=== PATIENT | female | born 1970 | race African-American/Black ===

== ENCOUNTER 2023-03-28 07:51 | Outpatient (REF) | payer OTHER, SELFPAY | END 2023-03-28 07:52 | disposition home or self-care (01) | LOC: HO.HOSX 07:51 | PROVIDERS: Visit Provider Physician Assistant | DX: Z13.89 Encounter for screening for other disorder (principal) ==

== ENCOUNTER 2023-07-07 05:49 | Emergency (ER) | payer OTHER, SELFPAY ==
--- NOTE | ~2023-07-07 | XR_ITS ---
EXAMINATION: XR CHEST CLINICAL INFORMATION: Chest pain COMPARISON: October 2008. TECHNIQUE: 2 views of the chest were obtained. FINDINGS: No evidence for airspace consolidation or vascular congestion. The hilar regions are unremarkable. There is some elevation of left diaphragm. Pleural surfaces appear to be clear. XR/XR chest 2V IMPRESSION: No evidence for acute process.
--- NOTE | ~2023-07-07 | XR_ITS ---
EXAMINATION: XR TIBIA AND FIBULA, LEFT CLINICAL INFORMATION: Left leg pain. COMPARISON: None available. TECHNIQUE: AP and lateral views of the left tibia and fibula were obtained. FINDINGS: The bones and soft tissues are normal. No fracture. No osseous lesions. XR/XR tibia fibula LT 2V IMPRESSION: Unremarkable left tibia and fibula.
--- NOTE | ~2023-07-07 | US_ITS ---
EXAMINATION: US VENOUS ULTRASOUND WITH DOPPLER LOWER EXTREMITY, LEFT CLINICAL INFORMATION: Left leg pain COMPARISON: None available. TECHNIQUE: Ultrasound of the deep veins is performed from the hip to the calf with compression sonography and color and pulse Doppler assessment. Spectral analysis with color-flow imaging is performed. FINDINGS: There is normal venous compression and respiratory variation and augmented flow. The visualized common femoral vein, superficial femoral vein, profunda femoral vein, popliteal vein, and the trifurcation region shows no evidence of deep venous thrombosis. There is no significant popliteal fossa cyst. No appreciable popliteal fossa abnormality. If the patient's symptoms persist, followup ultrasound in 5 days 7 days might be of value to exclude proximal propagation from a non-visualized calf vein. US/US venous duplex LE LT IMPRESSION: No DVT demonstrated in the left lower extremity.
--- NOTE | ~2023-07-07 | XR_ITS ---
EXAMINATION: XR KNEE, LEFT CLINICAL INFORMATION: Left knee pain COMPARISON: None available. TECHNIQUE: Four views of the left knee. FINDINGS: No evidence for acute fracture or dislocation. There is slight narrowing in the medial joint space compartment. No osteochondral lesions or erosions. Minimal spurring of the medial tibial plateau. There is no significant joint effusion. XR/XR knee LT 4V IMPRESSION: No acute process. Slight degenerative narrowing in the medial joint space compartment.
--- NOTE | 2023-07-07 05:51 | ECG_ITS ---
Test Reason : CHEST PAIN Blood Pressure : / mmHG Vent. Rate : 077 BPM Atrial Rate : 077 BPM P-R Int : 154 ms QRS Dur : 082 ms QT Int : 372 ms P-R-T Axes : 049 003 090 degrees QTc Int : 420 ms Normal sinus rhythm Nonspecific T wave abnormality Abnormal ECG No previous ECGs available Referred By: Generic ED Physician Electronically Signed By:CLOTILDE MIDDLETON MD
--- OUTSIDE RECORDS SUMMARY | 2023-07-07 06:14 | XMS_ITS | Continuity of Care Document ---
Author Name Unknown Organization [facility] Address [address] [place] [address]- Care Team Providers Care Mixing Machine Tender Cork Rod Name Role Phone Payam Saravia MD Primary Care Physician Encounter [facility] R [id number] Date(s): 05/07/21 - 05/07/[address] [address]- Discharge Disposition: A-D/C Home Attending Physician: Rich Chacon MD Admitting Physician: Rich Chacon MD Referring Physician: Rich Chacon MD Allergies, Adverse Reactions, Alerts Substance Reaction Severity Status Percocet hives C/O: itching Active Immunizations Given and Recorded Vaccine Date Status Refusal Reason pneumococcal 23-valent vaccine 10/06/15 Given Medications acetaminophen-HYDROcodone 325 mg-5 mg oral tablet 1 tablet, By Mouth, Every 4 hours, PRN Pain , Moderate, 0 Refills, Maintenance, 04/17/18 9:03:57 EDT, Tablet Start Date: 04/17/18 Status: Ordered Colace sodium 100 mg oral capsule 1 capsule = 100 mg, By Mouth, 2 times a day, PRN for constipation, # 20 capsule, 0 Refills, Maintenance, 10/06/15 9:25:46, Capsule Start Date: 10/06/15 Status: Ordered Ibuprofen 800 mg, By Mouth, 3 times a day, PRN, to hold, Refills 0, Maintenance, as needed for pain, 04/10/1810:47:18 EDT Start Date: 04/10/18 Status: Ordered Maxzide 50 mg-75 mg oral tablet 1, tablet, By Mouth, Daily, PRN, tAKES FOR LEG SWELLING, SELDOM USES, # 30 tablet, Refills 0, Maintenance, Other, 04/10/18 10:22:03 EDT, Tablet Start Date: 04/10/18 Status: Ordered Ortho-Novum 35 mcg-1 mg oral tablet 1 tablet, By Mouth, Daily, take 3 pills per day for 2 days take 2 pills per day until the bleeding stops then take one pill a day until you can see TEAM MANAGER, # 28 tablet, 0 Refills, Maintenance, 05/18/19 3:44:19 EDT, Tablet Start Date: 05/18/19 Stop Date: 06/15/19 Status: Ordered Pt.'s Own Meds OTC allergy relief, By Mouth, Daily, PRN, Maintenance, 04/10/18 10:46:26 EDT Start Date: 04/10/18 Status: Ordered Problem List Condition Effective Dates Status Health Status Inform ant Asthma(Confirmed) Active IBS (irritable bowel syndrome)(Confirmed) Active Morbid obesity(Confirmed) Active Vital Signs Most recent to oldest [Reference Range]: 1 2 3 Weight 116.5 kg (05/07/21 8:28 AM) Oxygen Saturation [94-100 %] 97 % (05/07/21 10:07 AM) 95 % (05/07/21 9:57 AM) 100 % (05/07/21 8:28 AM) Pulse Rate [55-90 bpm] 71 bpm (05/07/21 8:28 AM) Blood Pressure [90-138/55-84 mm Hg] 137/89mm Hg (05/07/21 10:07 AM) 148/92mm Hg *H* (05/07/21 9:57 AM) 161/87mm Hg *H* (05/07/21 8:28 AM) Respiratory Rate [16-30 br/min] 15 br/min *L* (05/07/21 10:07 AM) 20 br/min (05/07/21 9:57 AM) 20 br/min (05/07/21 8:28 AM) Temperature [96.8-100.4 DegF] 98.8 DegF (05/07/21 8:28 AM) Mode of Delivery (Oxygen) Room air (05/07/21 10:07 AM) Room air (05/07/21 9:57 AM) Room air (05/07/21 8:28 AM) Blood pressure sites Arm, left (05/07/21 10:07 AM) Arm, left (05/07/21 9:57 AM) Arm, left (05/07/21 8:28 AM) Temperature Route Axillary (05/07/21 8:28 AM) Dry Weight 116.5 kg (05/07/21 8:28 AM) Social History Social History Type Response Smoking Status Never (less than 100 in lifetime) entered on: 05/18/19 Sex
--- OUTSIDE RECORDS SUMMARY | 2023-07-07 06:14 | XMS_ITS | Continuity of Care Document ---
Author Name Unknown Organization [facility] ter Address [address] [place] [address]- Care Team Providers Care Firewall Security Engineer Name Role Phone Payam Saravia MD Primary Care Physician Encounter [facility] [place] [place] Date(s): 03/01/21 - 06/22/[address] [address]- Attending Physician: Payam Saravia MD Admitting Physician: Payam Saravia MD Referring Physician: Payam Saravia MD Allergies, Adverse Reactions, Alerts Substance Reaction [...] pill a day until you can see SILK CREPE MACHINE OPERATOR, # 28 tablet, 0 Refills, Maintenance, 05/18/19 3:44:19 EDT, Tablet Start Date: 05/18/19 Stop Date: 06/15/19 Status: Ordered Pt.'s Own Meds OTC allergy relief, By Mouth, Daily, PRN, Maintenance, 04/10/18 10:46:26 EDT Start Date: 04/10/18 Status: Ordered Problem List Condition Effective Dates Status Health Status Inform ant Asthma(Confirmed) Active IBS (irritable bowel syndrome)(Confirmed) Active Morbid obesity(Confirmed) Active Social History Social History Type Response Smoking Status Never (less than 100 in lifetime) entered on: 05/18/19 Sex
[2023-07-07 06:18] VITALS: BP 149/74; PULSE 82; RESP 16; TEMP 36.7; O2SAT 98; BMI 36.8
[2023-07-07 06:23] LABS: Hematocrit 38.4 % (37.0-47.0); Hemoglobin 12.7 g/dl (12.0-16.0); Mean Corpuscular HGB Conc 33.1 g/dl (31.0-35.0); Mean Corpuscular Hemoglobin 28.7 pg (27.0-33.0); Mean Corpuscular Volume 86.9 fL (80.0-98.0); Mean Platelet Volume 12.1 fL (9.4-12.3); Platelet Count 177 X10*3/uL (160-400); Red Blood Count 4.42 X10*6/uL (4.20-5.50); Red Cell Distribution Width 12.5 % (11.0-16.0)
[2023-07-07 06:52] LABS: Troponin-I High Sensitivity < 2.7 ng/L (<3.5-17.0)
[2023-07-07 08:21] VITALS: BP 144/75; PULSE 74; RESP 16; TEMP 36.4; O2SAT 100
--- NOTE | 2023-07-07 08:21 | ED.GENADULT ---
HPI - General Adult General Chief complaint: General Medical Stated complaint: woke up with cp, leg pain Time Seen by Provider: 07/07/23 08:20 Source: patient and RN notes reviewed Mode of arrival: ambulatory Limitations: no limitations History of Present Illness HPI narrative: This is a 53-year-old female, with a past medical history of asthma and IBS, presenting to the emergency department with complaints of chest pain which started at 4:00 a.m. this morning. Patient states that while she was sleeping she was woken up with nonradiating midsternal squeezing chest pain. Denies any shortness breath at that time. She states that the pain a for several seconds and resolved on its own she was unable to return back to sleep due to the symptoms. She states that over the last several days she has had intermittent left knee pain and left calf pain. Denies any recent trauma or injury to leg. Patient reports that over the last several weeks she has had 2 episodes of similar chest pain however these other episodes she would have the pain radiates to right shoulder. She endorses significant amount of life stressors, reports that her mom several weeks ago. She denies any known cardiac problems. She is on a hormonal IUD. She traveled to [place] in march, otherwise denies any other long travels. Denies any recent hospitalizations or surgeries. She reports that her sister has a clotting disorder, unsure what disorder this was but has had blood clots. No other complaints or concerns at this time. MD complaint: Chest pain, leg pain Quality: aching Pain Consistency: constant Relieving factors: none Exacerbating factors: none Associated symptoms: denies other symptoms Treatments prior to arrival: none Related Data Allergies Allergy/AdvReac Type Severity Reaction Status Date / Time acetaminophen [Percocet] Allergy Unknown Verified 01/24/15 00:00 oxycodone [Percocet] Allergy Unknown Verified 01/24/15 00:00 Sulfa (Sulfonamide Allergy Unverified 08/10/20 16:19 Antibiotics) [Sulfa (Sulfonamides)] Review of Systems Review of Systems: Yes all other systems are reviewed and are negative Constitutional: Constitutional: Reports as per [facility] Social History Social History Smoked in Last 30 Days: No Use of substances other than those prescribed or required for medical reasons: No Advance Directives: No Advance Directives Information Provided: No Physical Exam ED Vital Signs: Vital Signs - 24 hr 07/07/23 10:50 Temperature 97.7 F Pulse Rate 63 Respiratory Rate 16 Blood Pressure 128/80 Pulse Oximetry 100 Oxygen Delivery Method Room Air BMI result Body Mass Index 36.8 Const General: cooperative, comfortable and no acute distress Orientation/consciousness: patient oriented x3 Limitations: no limitations HENMT Head: Yes normal to inspection, Yes normocephalic and Yes atraumatic Ears: hearing grossly normal bilaterally General nose exam: Normal external nose present Face and sinus: Yes normal facial exam Mouth: Normal oral and palatal mucosa present, oropharynx normal and moist mucous membranes Throat: Yes posterior oropharynx normal Eyes General: appearance normal, both eyes and all related structures Eyelids: Yes eyelids normal Conjunctivae: conjunctivae normal Sclerae: sclerae normal Pupils: Equal, round and reactive pupils present EOM: EOMs intact bilaterally Neck Neck: Yes normal visual inspection, Yes full ROM and Yes no lymphadenopathy Lymphatic: no lymphadenopathy noted Chest Chest palpation & inspection: normal inspection of the chest and normal palpation of entire chest wall Resp Effort & Inspection: normal respiratory effort and able to speak in complete sentences Auscultation: clear to auscultation bilaterally, no crackles, no rales, no rhonchi and no wheezes Cardio Rate: regular rate Rhythm: regular rhythm Heart sounds: S1 normal heart sound present and S2 normal heart sound present GI Inspection: Yes normal to inspection Skin General skin exam: no rashes or lesions noted Trauma: no lacerations or abrasions Wounds: no wounds Neuro General: patient oriented x3 and moves all extremities Cranial nerves: Yes Equal, round and reactive pupils present Extrem Other: Left lower extremity is well perfused. Patient has mild tenderness to palpation along the posterior calf. No palpable cords. No pitting edema noted. DP pulses 2+. Left knee mildly tender to palpation along the anterior aspect, inferior to the patella. No tenderness palpation to the posterior knee. No obvious bony deformity or edema noted. Tenderness palpation along the anterior left taylor. No step-off or deformity. General: Yes normal to inspection Right upper extremity: normal to inspection Left upper extremity: normal to inspection Right lower extremity: normal to inspection Left lower extremity: normal to inspection Course Reevaluation(s) Reevaluation #1: No leukocytosis, stable H&H, troponin x2 negative. BNP 21, D-dimer less than 150. Ultrasound of left lower extremity without any clots. Knee x-ray revealing mild degenerative changes along the medial joint line. Chest x-ray unremarkable. EKG with no ST elevation or depression. Patient has a heart score of 2. Given workup today, reassuring symptoms unlikely cardiac related. 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 She states that the pain is throbbing and worsens with ambulation. Time: 12:03 Reevaluation #2: Tibia fibula x-ray unremarkable. 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 Advised to rest, and take ibuprofen Tylenol as directed as needed for symptoms. Also given referral to Orthopedics for management of her taylor splints as well as knee. Cardiac workup reassuring today. DDimer is negative. Advised to return if any new or worsening symptoms occur. Also educated to follow up with outpatient Cardiology for further testing given family medical history of cardiac problems. Patient understands and agrees with plan. Patient stable for discharge. Time: 12:48 Medical Decision Making Medical Decision Making [facility] Narrative: 53-year-old female presenting to the emergency department for evaluation of chest pain which started this morning. On arrival, patient mildly hypertensive at 149/74, all other vital signs within normal limits. She endorses left calf pain. No known history of blood clots however reports family history of clotting disorders. She is on a hormonal IUD. Unable to use PERC criteria given patient's age. Differential diagnoses include ACS, PE, calf strain, CHF, ACS. Given timing a plan to ER presentation, planned to have 2 troponins performed to rule NSTEMI. EKG without signs of ischemia. Presentation not consistent with acute PE however will get ultrasounds and D-dimer. Plan: Labs, EKG, chest x-ray, left knee x-ray Differential Diagnosis Differential Diagnoses: The differential diagnosis associated with the presentation includes See above Admission/Observation Consideration of admission/observation: Escalation of care including admission/observation considered Patient would have been admitted to the hospital had her work up had any findings where hospital admission was appropriate and her clinical presentation warranted hospital admission. Lab Data [facility] Lab Attestation statement: I reviewed the patient's lab results. see above 07/07/23 06:14 07/07/23 06:14 Labs: Lab Results 07/07/23 07/07/23 07/07/23 Range/Units 06:14 06:14 06:14 WBC 6.0 (4.8-10.8) X10*3/uL RBC 4.42 (4.20-5.50) X10*6/uL Hgb 12.7 (12.0-16.0) g/dl Hct 38.4 (37.0-47.0) % MCV 86.9 (80.0-98.0) fL MCH 28.7 (27.0-33.0) pg MCHC 33.1 (31.0-35.0) g/dl RDW 12.5 (11.0-16.0) % Plt Count 177 (160-400) X10*3/uL MPV 12.1 (9.4-12.3) fL Absolute Nucleated RBC 0.000 (0.0-0.012) X10*3/uL Nucleated RBC % (auto) 0.0 (0.0-0.2) /100WBC D-Dimer High Sensitivty NG/ML Sodium 138 (135-145) mmol/L Potassium 4.1 (3.3-5.1) mmol/L Chloride 107 (96-108) mmol/L Carbon Dioxide 23 (22-29) mmol/L Anion Gap 10 L (12-20) BUN 8 L (9-16) mg/dL Creatinine 0.87 (0.5-1.4) mg/dL Estim Creat Clear Calc 112.4 Estimated GFR > 60 Random Glucose 95 (60-115) mg/dL Calcium 8.6 (8.4-10.2) mg/dL Total Bilirubin 0.5 (0.0-1.0) mg/dL AST 18 (5-31) U/L ALT 19 (0-31) U/L Alkaline Phosphatase 63 (39-117) U/L Troponin I High Sens < 2.7 (<3.5-17.0) ng/L B-Natriuretic Peptide (<100) pg/mL Total Protein 6.7 (6.5-8.0) g/dL Albumin 3.7 (3.5-5.0) g/dL 07/07/23 07/07/23 07/07/23 Range/Units 10:34 10:34 10:35 WBC (4.8-10.8) X10*3/uL RBC (4.20-5.50) X10*6/uL Hgb (12.0-16.0) g/dl Hct (37.0-47.0) % MCV (80.0-98.0) fL MCH (27.0-33.0) pg MCHC (31.0-35.0) g/dl RDW (11.0-16.0) % Plt Count (160-400) X10*3/uL MPV (9.4-12.3) fL Absolute Nucleated RBC (0.0-0.012) X10*3/uL Nucleated RBC % (auto) (0.0-0.2) /100WBC D-Dimer High Sensitivty < 150 NG/ML Sodium (135-145) mmol/L Potassium (3.3-5.1) mmol/L Chloride (96-108) mmol/L Carbon Dioxide (22-29) mmol/L Anion Gap (12-20) BUN (9-16) mg/dL Creatinine (0.5-1.4) mg/dL Estim Creat Clear Calc Estimated GFR Random Glucose (60-115) mg/dL Calcium (8.4-10.2) mg/dL Total Bilirubin (0.0-1.0) mg/dL AST (5-31) U/L ALT (0-31) U/L Alkaline Phosphatase (39-117) U/L Troponin I High Sens < 2.7 (<3.5-17.0) ng/L B-Natriuretic Peptide 21 (<100) pg/mL Total Protein (6.5-8.0) g/dL Albumin (3.5-5.0) g/dL Radiology Impression Discussion of test interpretation with radiology: I have reviewed the radiologist's reading. Radiologist Impression: EXAMINATION: XR TIBIA AND FIBULA, LEFT CLINICAL INFORMATION: Left leg pain.? COMPARISON: None available.? TECHNIQUE: AP and lateral views of the left tibia and fibula were obtained. FINDINGS: The bones and soft tissues are normal. No fracture. No osseous lesions. ? XR/XR tibia fibula LT 2V IMPRESSION: Unremarkable left tibia and fibula. ? Dictated By: Lazaro Gant MD EXAMINATION:? US VENOUS ULTRASOUND WITH DOPPLER LOWER EXTREMITY, LEFT CLINICAL INFORMATION:? Left leg pain COMPARISON:? None available. TECHNIQUE: Ultrasound of the deep veins is performed from the hip to the calf with compression sonography and color and pulse Doppler assessment. Spectral analysis with color-flow imaging is performed. FINDINGS: There is normal venous compression and respiratory variation and augmented flow. The visualized common femoral vein, superficial femoral vein, profunda femoral vein, popliteal vein, and the trifurcation region shows no evidence of deep venous thrombosis. ? There is no significant popliteal fossa cyst. No appreciable popliteal fossa abnormality. If the patient's symptoms persist, followup ultrasound in 5 days 7 days might be of value to exclude proximal propagation from a non-visualized calf vein. US/US venous duplex LE LT IMPRESSION: No DVT demonstrated in the left lower extremity. Dictated By: Sander Mar EXAMINATION: XR KNEE, LEFT CLINICAL INFORMATION: Left knee pain? COMPARISON: None available.? TECHNIQUE: Four views of the left knee. FINDINGS: No evidence for acute fracture or dislocation. There is slight narrowing in the medial joint space compartment. No osteochondral lesions or erosions. Minimal spurring of the medial tibial plateau. There is no significant joint effusion.? XR/XR knee LT 4V IMPRESSION: No acute process. Slight degenerative narrowing in the medial joint space compartment. ? Dictated By: Sander Mar Scores Heart Score History: -1- moderately suspicious ECG: -0- normal Age: -1- >45 - <65 Risk factory: -0- no risk factors known Troponin: -0- < or = normal limit Score: 2 Risk: 1.7% Discharge Plan Discharge Clinical Impression: Taylor splints, Chest pain, Knee pain, left Patient Disposition: Home, Self-Care Instructions: Chest Pain (ED), Taylor Splints (ED), Knee Pain (ED) Additional Instructions: Your EKG, labs and chest x-ray were reassuring. Your left leg ultrasound did not show any blood clots. Your left knee x-ray shows degenerative changes. Your left leg x-ray does not show any evidence of stress fractures. Please change her shoes, to a supportive like shoe. Please take ibuprofen or Tylenol for relief. Apply ice your taylor and knee for relief. Please follow-up with orthopedics as well as Cardiology for further management and workup. If any new or worsening symptoms occur including but not limited to worsening chest pain, shortness of breath, or any other symptoms, please return for re-evaluation. Referrals: [facility] [place] Cardi[facility] Services [Provider Group] [facility] [place] Orth[facility] Surgeons [Provider Group] Interventions: ED Discharge Assessment Last Done: 07/07/23 13:06 Discharge Date/Time: 07/07/23 13:07
--- NOTE | 2023-07-07 08:27 | PC.NURSE ---
Pt stated she was walking two weeks ago and left knee began to hurt. Pt stated yesterday evening the pain started to radiate from knee area to left ankle.
[2023-07-07 08:29] LABS: Alanine Aminotransferase 19 U/L (0-31); Albumin Level 3.7 g/dL (3.5-5.0); Alkaline Phosphatase 63 U/L (39-117); Aspartate Amino Transferase 18 U/L (5-31); Bilirubin Total 0.5 mg/dL (0.0-1.0); Blood Urea Nitrogen 8 mg/dL (9-16); Calcium 8.6 mg/dL (8.4-10.2); Chloride 107 mmol/L (96-108); Creatinine Clr Calc Pharmacy 112.4; Estimated Glomerular Filt Rate > 60; Glucose Random 95 mg/dL (60-115); Potassium 4.1 mmol/L (3.3-5.1); Sodium 138 mmol/L (135-145); Total Protein 6.7 g/dL (6.5-8.0)
[2023-07-07 10:02] LABS: Anion Gap 10 (12-20); Carbon Dioxide 23 mmol/L (22-29)
[2023-07-07 10:50] VITALS: BP 128/80; PULSE 63; RESP 16; TEMP 36.5; O2SAT 100
[2023-07-07 10:53] LABS: D Dimer High Sensitivity < 150 NG/ML
[2023-07-07 11:04] LABS: B Type Natriuretic Peptide 21 pg/mL (<100)
[2023-07-07 11:26] LABS: Troponin-I High Sensitivity < 2.7 ng/L (<3.5-17.0)
== END 2023-07-07 13:07 | disposition home or self-care (01) ==
PROVIDERS: Physician Assistant Medical; Emergency Provider Emergency Medicine; PCP Internal Medicine Medical Oncology
DX: R07.9 Chest pain, unspecified (principal); M79.605 Pain in left leg; S86.892A Other injury of other muscle(s) and tendon(s) at lower leg level, left leg, initial encounter; X50.1XXA Overexertion from prolonged static or awkward postures, initial encounter; Y93.89 Activity, other specified; Y92.148 Other place in prison as the place of occurrence of the external cause; Y99.9 Unspecified external cause status
CPT/HCPCS: 36415; 71046; 73564; 73590; 80053; 83880; 84484; 85027; 85379; 93005; 93971; 99284

== ENCOUNTER → 2023-07-07 05:51 | Outpatient (BNV) | payer OTHER, SELFPAY | PROVIDERS: Emergency Provider Emergency Medicine; PCP Internal Medicine Medical Oncology; Visit Provider Internal Medicine Cardiovascular Disease | DX: R07.9 Chest pain, unspecified (principal); R94.31 Abnormal electrocardiogram [ECG] [EKG] | CPT/HCPCS: 93010 ==

== ENCOUNTER 2025-06-22 09:38 | Outpatient (REF) | payer OTHER, SELFPAY ==
--- OUTSIDE RECORDS SUMMARY | 2025-03-30 10:45 | XMS_ITS ---
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 [...] Celecoxib 100 MG TAKE 1 CAPSULE BY [facility] EVERY DAY WITH FOOD FOR [...] Months, Reason: ov no tests Provider Name:Payam Saravia, 06/29/2025 09:30:00 AM, [address] [place] [address] [address], [place], [address], Provider Name:Payam Saravia, 09/16/2025 02:45:00 PM, [address] [place] [address] [address], [place], [address], Progress Notes * Donya HOSKINSDOB:1970 (54 yo F)Acc No.[id number]:03/30/2025 Progress Notes Patient: Donya ORTA Provider: Doug Saravia MD :1970 A ge:54 Y S ex:Female Date:03/30/2025 Address:[address] [place], [place] [phone] Subjective: * Chief Complaints: * Z epbound [...] stic Procedure: u pper endoscopy, Dr. Chacon, [facility] 04/2021No history * Family History: F [...] De La Cruz. She was born in [place], [place], has 6 well children and has been 19 years to [place]. She was born in [place]. 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 [...] 03/30/2025 Generated for Tabby lau/Alexandra/Shawnaitting on: 0 06/22/2025 10:12 AM EDT History and Physical Notes * HPI (History [...]
--- OUTSIDE RECORDS SUMMARY | 2025-04-30 05:30 | XMS_ITS ---
Author Organization [facility] Address [address] [place] [address] Care Team Providers Care Body Repairer Name Role Phone Chikis Swartz Unavailable [phone] THAD THUAN Unavailable [phone] Medications Medication SIG (Take, Route, Fr equency, Duration) Notes Start Date End Date Status Wegovy 1.7 MG/0.75ML 1.7mg Subcutaneous weekly; Duration: 30 days Active ProAir HFA PRN Active predniSONE 10 MG 1 tablet Orally Once a day PRN Active Ondansetron 4 MG 1 tablet on the tong ue and allow to dissolve prn nausea/vomiting Orally twice day; Duration: 30 days 08/06/2024 Active Wegovy 1 MG/0.5ML 1mg Subcutaneous wee kly; Duration: 30 days 01/29/2025 Active Encounters Encounter Location Date Provider Diagnosis [facility] [address] [place] [address] 04/30/2025 THUAN ONEIL Other obesity due to [...] software and direct typing Please excuse inadvertent membership sales advisor or typing errors, or uncorrected word substitutions Although every attempt has been made by the provider to proofread this document, occasional misspellings and typographical errors may still be present Due to the previous pandemic, and the use of personal protective equipment (PPE) This may decrease voice recognition accuracy Inadvertent membership sales advisor errors may occur 04/30/2025 BMI 34.0-34.9,adult (ICD-10 [...] software and direct typing Please excuse inadvertent membership sales advisor or typing errors, or uncorrected word substitutions Although every attempt has been made by the provider to proofread this document, occasional misspellings and typographical errors may still be present Due to the previous pandemic, and the use of personal protective equipment (PPE) This may decrease voice recognition accuracy Inadvertent membership sales advisor errors may occur 04/30/2025 Dietary counseling and [...] software and direct typing Please excuse inadvertent membership sales advisor or typing errors, or uncorrected word substitutions Although every attempt has been made by the provider to proofread this document, occasional misspellings and typographical errors may still be present Due to the previous pandemic, and the use of personal protective equipment (PPE) This may decrease voice recognition accuracy Inadvertent membership sales advisor errors may occur 04/30/2025 Prediabetes (ICD-10 - [...] software and direct typing Please excuse inadvertent membership sales advisor or typing errors, or uncorrected word substitutions Although every attempt has been made by the provider to proofread this document, occasional misspellings and typographical errors may still be present Due to the previous pandemic, and the use of personal protective equipment (PPE) This may decrease voice recognition accuracy Inadvertent membership sales advisor errors may occur 04/30/2025 Encounter for examination [...] software and direct typing Please excuse inadvertent membership sales advisor or typing errors, or uncorrected word substitutions Although every attempt has been made by the provider to proofread this document, occasional misspellings and typographical errors may still be present Due to the previous pandemic, and the use of personal protective equipment (PPE) This may decrease voice recognition accuracy Inadvertent membership sales advisor errors may occur Plan Of Treatment Medication Medication Name Sig Start Date Stop Date Notes Wegovy 1.7 MG/0.75ML 1.7mg Subcutaneous weekly; Duration: 30 days Progress Notes * Donya HOSKINSDOB:1970 (55 yo F)Acc No.[id number]:04/30/2025 Patient: Donya ORTA Provider: Stanford ONEIL NP :1970 A ge:54 Y S ex:Female Date:04/30/2025 Address:[address] [place] [address] Subjective: * Chief Complaints: * * HPI: C onstitutional: Patient is here [...] IBS modified diet significantly Gastric Sleeve at [facility] Dr. Franks 2014 Thyroid nodules evaluated, benign, Dr. Muro , Underwent FNA and ultrasound Exercise: Currently walks at work + x3 days/wk for 30-40 min; no weight lifting Non-smoker ETOH use: socially PCP Dr. 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 * ROS: A ll Other Systems: Review of Systems (ROS) A ll others negative except those mentioned in HPI. * Medical History: * Medications: T aking Wegovy 1 MG/0.5ML Solution Auto-injector 1mg Subcutaneous weekly , Taking Ondansetron 4 MG Tablet Disintegrating 1 tablet on the tongue and allow to dissolve prn nausea/vomiting Orally twice day , Taking predniSONE 10 MG Tablet 1 tablet Orally Once a day , Notes to Pharmacist: PRN, Taking ProAir HFA , Notes to Pharmacist: PRN, Taking Wegovy 1.7 MG/0.75ML Solution Auto-injector 1.7mg Subcutaneous weekly Objective: * Vitals: * Examination: G eneral Examination: GENERAL APPEARANCE: i n no acute distress, well developed, well nourished. H EAD: n ormocephalic, atraumatic. E YES: p upils equal, round, reactive to light and accommodation. E ARS: n ormal. O RAL CAVITY: m ucosa moist. T HROAT: jayleen cardoso. N CRISTOBAL/THYROID: n cristobal supple, full range of motion, no cervical lymphadenopathy. S KIN: n o suspicious lesions, warm and dry. H EART: n o murmurs, regular rate and rhythm, S1, S2 normal. L UNGS: c lear to auscultation bilaterally. A BDOMEN: n ormal, bowel sounds present, soft, nontender, nondistended. E XTREMITIES: n o clubbing, cyanosis, or edema. N EUROLOGIC: n onfocal, motor strength normal upper and lower extremities, sensory exam intact. Assessment: * Assessment: 1. O ther obesity due to excess calories - E66.09 (Primary) 2 . B [place] 34.0-34.9,adult - Z68.34 3 . D ietary [...] software and direct typing Please excuse inadvertent membership sales advisor or typing errors, or uncorrected word substitutions Although every attempt has been made by the provider to proofread this document, occasional misspellings and typographical errors may still be present Due to the previous pandemic, and the use of personal protective equipment (PPE) This may decrease voice recognition accuracy Inadvertent membership sales advisor errors may occur Plan: * Treatment: * Procedure Codes: 9 9199 NO SHOW OFFICE VISIT * Images: Billing Information: * Visit Code: * Procedure Codes: 60296 NO SHOW OFFICE VISIT. * Electronic signature of NICO ONEIL on 06/22/2025 at 10:12 AM EDT Sign off status: Pending * Provider: Stanford ONEIL NP Date: 0 04/30/2025 Generated for Tabby Morales on: 0 06/22/2025 10:12 AM EDT History [...] IBS modified diet significantly Gastric Sleeve at [facility] Dr. Franks 2014 Thyroid nodules evaluated, benign, Dr. Muro , Underwent FNA and ultrasound Exercise: Currently walks at work + x3 days/wk for 30-40 min; no weight lifting Non-smoker ETOH use: socially PCP Dr. 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
--- OUTSIDE RECORDS SUMMARY | 2025-06-22 10:13 | XMS_ITS | Clinical Summary ---
Author Organization [facility] ity Address [address] [place] [address] Care Team Providers Care Die Sinker Apprentice Name Role Phone Unavailable Primary Care Provider Unavailabl e Social History Tobacco Use Types Packs/Day Years Used Date Smoking Tobacco: Never Assessed Comments Unknown Sex and Gender Information Value Date Recorded Sex Assigned at Not on file Legal Sex Female 5:22 PM EST Gender Identity Not on file Sexual Orientation Not on file Plan of Treatment Health Maintenance Due Date Last Done Comments Breast Cancer Screening 1972 DTaP,Tdap,and Td Vaccines (1 - Tdap) 1991 Hepatitis B Vaccines (1 of 3 - 19+ 3-dose series) 1991 Cervical Cancer Screening: P ap Smear 1993 Pneumococcal Vaccine: 50+ Ye ars (1 of 1 - PCV) 2022 Zoster Vaccines (1 of 2) 2022 Colorectal Cancer Screening: Colonoscopy 10/26/2022 HIV Screening 10/26/2022 Hepatitis C Screening 10/26/2022 Social Influencers of Health Screening 10/26/2022 COVID-19 Vaccine (1 - 2023-2 5 season) 2024 Depression Screening 11/24/2024 Influenza Vaccine (#1) 2025 HIB Vaccines Aged Out No longer eligi ble based on patient's age to complete this topic HPV Vaccines Aged Out No longer eligi ble based on patient's age to complete this topic Hepatitis A Vaccines Aged Out No long er eligible based on patient's age to complete this topic IPV Vaccines Aged Out No longer eligi ble based on patient's age to complete this topic MMR Vaccines Aged Out No longer eligi ble based on patient's age to complete this topic Meningococcal ACWY Vaccine Aged Out N o longer eligible based on patient's age to complete this topic Meningococcal B Vaccine Aged Out No l onger eligible based on patient's age to complete this topic RSV Immunization Patients Un gera 20 months Aged Out No longer eligible b ased on patient's age to complete this topic Varicella Vaccines Aged Out No longer eligible based on patient's age to complete this topic
--- OUTSIDE RECORDS SUMMARY | 2025-06-22 10:13 | XMS_ITS | Clinical Summary ---
Author Organization [facility] Address [address] [place] [phone] Phone Care Team Providers Care Assembler Lay Ups Name Role Phone Payam Saravia MD Primary Care Provider [phone] Allergies Active Allergy Reactions Criticality Noted Date Comments Oxycodone-Acetaminophen 11/04/2023 Medications predniSONE (DELTASONE) 20 MG tablet TAKE 2 TABLETS BY MOUTH EVERY DAY FOR 10 DAYS 10/11/2023 Active albuterol 90 mcg/actuation inhaler Inhale 2 puffs into the lungs every 6 (six) hours as needed for wheezing. Active naproxen (NAPROSYN) 500 MG tabletIndicatio ns:Patellar tendinitis of left knee,Chondromal acia of left patella Take 1 tablet (500 mg total) by mouth 2 (two) times a day with meals. 30 tablet 11/04/2023 Active Social History Tobacco Use Types Packs/Day Years Used Date Smoking Tobacco: Never Assessed Education Answer Date Recorded Are you interested in more education? Not on patel e 03/22/2023 Are you concerned about learning? Not on file 03/22/2023 No 03/22/2023 No 03/22/2023 Digital Access Answer Date Recorded No 04/20/2023 No 04/20/2023 Reliable internet access at home? Not on file 04/20/2023 Device with a working camera? Not on file Comments Unknown Sex and Gender Information Value Date Recorded Sex Assigned at Female 10/30/2023 9:13 AM EST Legal Sex Female 1:49 PM EST Gender Identity Female 10/30/2023 9:13 AM EST Sexual Orientation Straight 10/30/2023 9: 13 AM EST Last Filed Vital Signs Vital Sign Reading Time Taken Comments Blood Pressure - - Pulse - - Temperature - - Respiratory Rate - - Oxygen Saturation - - Inhaled Oxygen Concentration - - Weight 118.8 kg (262 lb) 05/18/2021 1:58 PM EDT Height 182.9 cm (6') 05/18/2021 1:58 PM EDT Body Mass Index 35.53 05/18/2021 1:58 PM EDT Plan of Treatment Health Maintenance Due Date Last Done Comments Adult Td,Tdap Booster 1972 LIPID PANEL 1972 DEPRESSION SCREENING 1984 SMOKING Hx and SMOKELESS TOB ACCO SCREENING 1985 HEPATITIS C SCREENING 1990 HIV ONE-TIME SCREENING (18-6 5 YEARS) 1990 PAP SMEAR 1993 MAMMOGRAM 2012 COLOGUARD 2017 COLONOSCOPY 2017 COLORECTAL CANCER SCREENING 2017 FIT TEST 2017 FOBT 2017 SIGMOIDOSCOPY 2017 VIRTUAL COLONOSCOPY 2017 PNEUMOCOCCAL VACCINES (50+ y ears) (1 of 1 - PCV) 2022 ZOSTER VACCINES (1 of 2) 2022 COVID-19 VACCINE (1 - 2023-2 5 season) 2024 HEPATITIS A VACCINES Aged Out No long er eligible based on patient's age to complete this topic HIB VACCINES Aged Out No longer eligi ble based on patient's age to complete this topic MENINGOCOCCAL VACCINES (ACWY) Aged Out No longer eligible based on patient's age to complete this topic MENINGOCOCCAL VACCINES (B) Aged Out N o longer eligible based on patient's age to complete this topic Medical Devices Not on file Insurance CIGAASHISH PPO CIGNA PPO CIGNA PPO CIGNA PPO CIGNA PPO Member Subscriber Plan / Payer ( fective 2015-Present) Name:Donya Charles Relation to Subscriber:Spouse Name:SPARKLE CHARLES Date of :1966 (Home) Address: [address] [place] [address] Payer ID:[id number] (NAIC) Type:PPO Address: [address] [place] [id number] CIGNA PPO Care Teams Assembler Lay Ups Relationship Specialty Start Date End Date Payam Saravia MD [address] [place] [id number] PCP - General Medical Oncology 11/07/21 Additional Source Comments The information contained in this document represents components of the legal health record. It is not the complete legal health record.[facility]
[2025-06-22 13:02] LABS: MANUAL DIFF FLAG NO
[2025-06-22 13:35] LABS: Hematocrit 37.3 % (37.0-47.0); Hemoglobin 12.7 g/dl (12.0-16.0); Imm Gran Abs Auto 0.01 X10*3/uL (0.00-0.03); Imm Gran Pct Auto 0.2 % (0.0-0.4); Lymphocytes Absolute Auto 1.5 X10*3/uL (1.2-4.9); Mean Corpuscular HGB Conc 34.0 g/dl (31.0-35.0); Mean Corpuscular Hemoglobin 29.3 pg (27.0-33.0); Mean Corpuscular Volume 86.1 fL (80.0-98.0); NRBC Abs Auto 0.000 X10*3/uL (0.0-0.012); NRBC Pct Auto 0.0 /100WBC (0.0-0.2); Platelet Count 199 X10*3/uL (160-400); Red Blood Count 4.33 X10*6/uL (4.20-5.50); White Blood Count 4.0 X10*3/uL (4.8-10.8)
[2025-06-22 14:26] LABS: Alanine Aminotransferase 31 U/L (0-31); Albumin Level 3.9 g/dL (3.5-5.0); Alkaline Phosphatase 65 U/L (39-117); Anion Gap 9 (12-20); Aspartate Amino Transferase 29 U/L (5-31); Blood Urea Nitrogen 9 mg/dL (9-16); Calcium 8.5 mg/dL (8.4-10.2); Carbon Dioxide 26 mmol/L (22-29); Chloride 108 mmol/L (96-108); Cholesterol 173 mg/dL (<200); Estimated Glomerular Filt Rate > 60; Free T4 (Free Thyroxine) 0.94 ng/dL (0.71-1.85); HDL Cholesterol 60 mg/dL (>40); Potassium 4.2 mmol/L (3.3-5.1); Sodium 139 mmol/L (135-145); Thyroid Stimulating Hormone 0.50 uIU/mL (0.32-4.0); Total Protein 6.7 g/dL (6.5-8.0); Triglycerides 63 mg/dL (<150)
== END 2025-06-22 09:39 | disposition home or self-care (01) ==
LOC: HO.10HDL 09:38
PROVIDERS: Visit Provider Internal Medicine Medical Oncology
DX: E66.9 Obesity, unspecified (principal); E11.9 Type 2 diabetes mellitus without complications; D50.0 Iron deficiency anemia secondary to blood loss (chronic); E03.9 Hypothyroidism, unspecified
CPT/HCPCS: 36415; 80053; 80061; 84439; 84443; 85025; 85652

== ENCOUNTER 2025-11-23 10:22 | Outpatient (AMB) | payer OTHER, SELFPAY ==
--- OUTSIDE RECORDS SUMMARY | 2024-09-11 04:30 | XMS_ITS ---
Author Organization [facility] [address] Address [address] [place] [address] Care Team Providers Care Certified Composites Technician Name Role Phone Chikis Swartz Unavailable [phone] ARANZA GALINDO Unavailable [phone] REASON FOR VISIT 5 Encounters Encounter Location Date Provider Diagnosis [facility] [address] [place] [address] 09/11/2024 ARANZA GALINDO Plan Of Treatment Next Appt Details Provider Name:THUAN ONEIL, 11/26/2025 09:15:00 AM, [address], [place], [address], Progress Notes * Donya HOSKINSDOB:1970 (55 yo F)Acc No.[id number]:09/11/2024 Patient: Donya Zelaya Provider: Chong Galindo MD :1970 A ge:54 Y S ex:Female Date:09/11/2024 Address:[address] [place], [place] [id number] Subjective: * Chief Complaints: * 5 * Electronic signature of MAMADOU GALINDO MD on 11/23/2025 at 11:34 AM EST Sign off status: Pending * Provider: Chong Galindo MD Date: Generated for Tabby lau/Alexandra/eTransmitting on: 11:34 AM EST
--- OUTSIDE RECORDS SUMMARY | 2024-09-18 04:30 | XMS_ITS ---
Author Organization [facility] [address] Address [address] [place] [address] Care Team Providers Care Lumber Buyer Name Role Phone Chikis Swartz Unavailable [phone] ARANZA GALINDO Unavailable [phone] REASON FOR VISIT 5 Encounters Encounter Location Date Provider Diagnosis [facility] [address] [place] [address] 09/18/2024 ARANZA GALINDO Plan Of Treatment Next Appt Details Provider Name:THUAN ONEIL, 11/26/2025 09:15:00 AM, [address], [place], [address], Progress Notes * ARACELI AdriannedominicDOB:1970 (55 yo F)Acc No.[id number]:09/18/2024 Patient: Donya Zelaya Provider: Chong Galindo MD :1970 A ge:54 Y S ex:Female Date:09/18/2024 Address:[address] [place], [place] [id number] Subjective: * Chief Complaints: * 5 Plan: * Procedure Codes: 9 9199 NO SHOW OFFICE VISIT Billing Information: * Procedure Codes: 15530 NO SHOW OFFICE VISIT. * Electronic signature of MAMADOU GALINDO MD on 11/23/2025 at 11:32 AM EST Sign off status: Pending * Provider: Chong Galindo MD Date: 1 Generated for Printi ng/Faxing/eTransmitting on: 1 11:32 AM EST
--- OUTSIDE RECORDS SUMMARY | 2024-11-26 03:30 | XMS_ITS ---
Author Organization [facility] [address] [address] Address [address] [place] [address] Care Team Providers Care Supply Chain Business Analyst Name Role Phone Chikis Swartz Unavailable [phone] THUAN ONEIL Unavailable [phone] Encounters Encounter Location Date Provider Diagnosis [facility] [address] [address] 11/26/2024 THUAN ONEIL Other obesity due to [...] minimum of 6 months The most recent [place] [employer] of clinical endocrinologists and [place] [employer] of endocrinology guidelines recommend patients who [...] software and direct typing Please excuse inadvertent director of graduate admissions or typing errors, or uncorrected word substitutions Although every attempt has been made by the provider to proofread this document, occasional misspellings and typographical errors may still be present Due to the previous pandemic, and the use of personal protective equipment (PPE) This may decrease voice recognition accuracy Inadvertent director of graduate admissions errors may occur 11/26/2024 Body mass index [...] minimum of 6 months The most recent [place] [employer] of clinical endocrinologists and [place] [employer] of endocrinology guidelines recommend patients who [...] software and direct typing Please excuse inadvertent director of graduate admissions or typing errors, or uncorrected word substitutions Although every attempt has been made by the provider to proofread this document, occasional misspellings and typographical errors may still be present Due to the previous pandemic, and the use of personal protective equipment (PPE) This may decrease voice recognition accuracy Inadvertent director of graduate admissions errors may occur 11/26/2024 Dietary counseling and [...] minimum of 6 months The most recent [place] [employer] of clinical endocrinologists and [place] [employer] of endocrinology guidelines recommend patients who [...] software and direct typing Please excuse inadvertent director of graduate admissions or typing errors, or uncorrected word substitutions Although every attempt has been made by the provider to proofread this document, occasional misspellings and typographical errors may still be present Due to the previous pandemic, and the use of personal protective equipment (PPE) This may decrease voice recognition accuracy Inadvertent director of graduate admissions errors may occur Plan Of Treatment Next Appt Details Provider Name:THUAN ONEIL, 11/26/2025 09:15:00 AM, [address] [facility], [place], [address], History and Physical Notes * HPI (History [...] mg awaiting PA for Zepbound, Currently on [employer] However switching to [employer] in about 2 [...] 38.4 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 No recent screening Has not had an echocardiogram recently. Gastric Sleeve at [facility] Dr. Franks 2014 Thyroid nodules evaluated, benign, Dr. Muro , Underwent FNA and ultrasound PCP Dr. 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 No recent screening Has not had an echocardiogram recently. Gastric Sleeve at [facility] Dr. Franks 2014 Thyroid nodules evaluated, benign, Dr. Muro , Underwent FNA and ultrasound PCP Dr. Webber in [place] Asthma on prolia Diet: yogurt w/ protein [...] minimum of 6 months The most recent [place] [employer] of clinical endocrinologists and [place] [employer] of endocrinology guidelines recommend patients who [...] software and direct typing Please excuse inadvertent director of graduate admissions or typing errors, or uncorrected word substitutions Although every attempt has been made by the provider to proofread this document, occasional misspellings and typographical errors may still be present Due to the previous pandemic, and the use of personal protective equipment (PPE) This may decrease voice recognition accuracy Inadvertent director of graduate admissions errors may occur. * Electronic signature of NICO ONEIL on 11/23/2025 at 11:34 AM EST Sign off status: Pending * Provider: Stanford ONEIL NP Date: 0 11/26/2024 Generated for Tabby lau/Alexandra/Errol on: 11:34 AM EST
--- OUTSIDE RECORDS SUMMARY | 2025-01-15 06:00 | XMS_ITS ---
Author Organization [facility] [address] Address [address] [place] [address] Care Team Providers Care Rag Cutting Machine Operator Name Role Phone Chikis Swartz Unavailable [phone] THAD THUAN Unavailable [phone] Medications Medication SIG (Take, Route, Frequency, Duration) Notes Start Date End Date Status Wegovy 0.5 MG/0.5ML Solution Auto-injector 0.5mg Subcutaneous weekly; Duration: 30 days Active Encounters Encounter Location Date Provider Diagnosis [facility] [address] [place] [address] 01/15/2025 THUAN ONEIL Other obesity due to [...] software and direct typing Please excuse inadvertent hospice admitting clerk or typing errors, or uncorrected word substitutions Although every attempt has been made by the provider to proofread this document, occasional misspellings and typographical errors may still be present Due to the previous pandemic, and the use of personal protective equipment (PPE) This may decrease voice recognition accuracy Inadvertent hospice admitting clerk errors may occur 01/15/2025 BMI 35.0-35.9,adult (ICD-10 [...] software and direct typing Please excuse inadvertent hospice admitting clerk or typing errors, or uncorrected word substitutions Although every attempt has been made by the provider to proofread this document, occasional misspellings and typographical errors may still be present Due to the previous pandemic, and the use of personal protective equipment (PPE) This may decrease voice recognition accuracy Inadvertent hospice admitting clerk errors may occur 01/15/2025 Dietary counseling and [...] software and direct typing Please excuse inadvertent hospice admitting clerk or typing errors, or uncorrected word substitutions Although every attempt has been made by the provider to proofread this document, occasional misspellings and typographical errors may still be present Due to the previous pandemic, and the use of personal protective equipment (PPE) This may decrease voice recognition accuracy Inadvertent hospice admitting clerk errors may occur 01/15/2025 Prediabetes (ICD-10 - [...] software and direct typing Please excuse inadvertent hospice admitting clerk or typing errors, or uncorrected word substitutions Although every attempt has been made by the provider to proofread this document, occasional misspellings and typographical errors may still be present Due to the previous pandemic, and the use of personal protective equipment (PPE) This may decrease voice recognition accuracy Inadvertent hospice admitting clerk errors may occur Plan Of Treatment Medication Medication Name Sig Start Date Stop Date Notes Wegovy 0.5 MG/0.5ML Solution Auto-injector 0.5mg Subcutaneous weekly; Duration: 30 days Next Appt Details Provider Name:THUAN ONEIL, 11/26/2025 09:15:00 AM, [address] [facility], [place], [address], History and Physical Notes * HPI (History [...] IBS modified diet significantly Gastric Sleeve at [facility] Dr. Franks 2014 Thyroid nodules evaluated, [...] ETOH use: socially PCP Dr. 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 Franks 2014 Thyroid nodules evaluated, [...] ETOH use: socially PCP Dr. 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 B DC 35.0-35.9,adult - Z68.35 3 . D ietary [...] software and direct typing Please excuse inadvertent hospice admitting clerk or typing errors, or uncorrected word substitutions Although every attempt has been made by the provider to proofread this document, occasional misspellings and typographical errors may still be present Due to the previous pandemic, and the use of personal protective equipment (PPE) This may decrease voice recognition accuracy Inadvertent hospice admitting clerk errors may occur. Plan: * Treatment: * Electronic signature of NICO ONEIL on 11/23/2025 at 11:33 AM EST Sign off status: Pending * Provider: Stanford ONEIL NP Date: 0 01/15/2025 Generated for Tabby Hurt/Errol on: 1 11:33 AM EST
--- OUTSIDE RECORDS SUMMARY | 2025-02-01 04:06 | XMS_ITS ---
Author Organization Payam Saravia III, MD Address [address] [place] [address] [place] [address] Care Team Providers Care Sewer Pipe Cleaner Name Role Phone Dr. Payam Saravia III Primary Care Provider REASON FOR VISIT Out of work Note Social History Sex Assigned At : Social History Observation Description Sex Assigned At Female Encounters Encounter Location Date Provider Diagnosis Payam Saravia III, MD [address] [place] [address] [place] [address] 02/01/2025 Payam Saravia Plan Of Treatment Next Appt Details Provider Name:Payam Saravia , 01/18/2026 02:00:00 PM, [address] [place] [address] [place], [address], Provider Name:Payam Saravia , 09/18/2026 03:00:00 PM, [address] [place] [address] [place], [address], Progress Notes * Donya HOSKINSDOB:1970 (54 yo F)Acc No.[id number]:02/01/2025 Patient: Donya ORTA :1970 A ge:54 Y S ex:Female Address:[address] [place] [address] * true * Date: Generated for Printi ng/Faxing/eTransmitting on: 1 11:34 AM EST
--- OUTSIDE RECORDS SUMMARY | 2025-02-08 10:14 | XMS_ITS ---
Author Organization Payam Saravia III, MD Address [address] [place] [address] [place] [address] Care Team Providers Care Routing Clerk Name Role Phone Dr. Payam Saravia III Primary Care Provider [phone] REASON FOR VISIT high BP Social History Sex Assigned At : Social History Observation Description Sex Assigned At Female Encounters Encounter Location Date Provider Diagnosis Payam Saravia III, MD [address] [place] [address] [place] [address] 02/08/2025 Payam Saravia Plan Of Treatment Next Appt Details Provider Name:Payam Saravia , 01/18/2026 02:00:00 PM, [address] [place] [address] [place], [address], Provider Name:Payam Saravia , 09/18/2026 03:00:00 PM, [address] [place] [address] [place], [address], Progress Notes * Donya HOSKINSDOB:1970 (54 yo F)Acc No.[id number]:02/08/2025 Patient: Donya ORTA :1970 A ge:54 Y S ex:Female Address:[address] [place] [address] * true * Date: Generated for Printi ng/Faxing/eTransmitting on: 1 11:33 AM EST
--- OUTSIDE RECORDS SUMMARY | 2025-02-16 10:00 | XMS_ITS ---
Author Organization Payam Saravia III, MD Address [address] [place] [address] [place] [address] Care Team Providers Care Deputy Sheriff Name Role Phone Dr. Payam Saravia III Primary Care Provider Allergies Allergen (clinical drug ingredient) Drug/Non Drug Allergy documented on EMR Reaction Allergy Type Onset Date Status acetaminophen / oxycodone Percocet Unknown Drug Allergy Active REASON FOR VISIT Hypertension, History of depression, Goiter, Asthma, Insomnia, Obesity Medications Medication SIG (Take, Route, Frequency, Duration) Notes Start Date End Date Status Wegovy 0.5 MG/0.5ML INJECT 0.5 MG SUBCUTANEOUSLY WEEKLY Subcutaneous Active Loratadine 10 MG 1 tablet Orally Once a day 03/12/2024 Active Budesonide-Formote rol Fumarate 160-4.5 MCG/ACT two puffs Inhalation twice a day 02/10/2024 Active Albuterol Sulfate HFA 108 (90 Base) MCG/ACT 1 puff as needed Inhalation every 4 hrs J45.41 Moderate persistent asthmatic bronchitis with acute exacerbation 08/20/2024 Active predniSONE 20 MG 2 tablets Orally Onc e a day J45.41 Moderate persistent asthmatic bronchitis with acute exacerbation Active Zepbound 2.5 MG/0.5ML as directed Subcutaneous once a week 02/06/2024 Active ProAir HFA 108 (90 Base) MCG/ACT 1 puff as needed Inhalation every 4 hrs 03/23/2021 Active Ibuprofen 800 MG TAKE 1 TABLET BY MOUTH THREE TIMES A DAY WITH FOOD OR MILK NEEDED FOR 30 DAYS Active Celecoxib 100 MG TAKE 1 CAPSULE BY MOUTH EVERY DAY WITH FOOD FOR 30 DAYS Active Triamterene-HCTZ 37.5-25 MG 1 tablet Orally one every other day 12/23/2023 Active Social History Tobacco Use: Social History Observation Description Date Details (start date - stop date) Never Smoker NA - NA Sex Assigned At : Social History Observation Description Sex Assigned At Female Tobacco Control (Standard) Question Answer Notes Tobacco use: Nonsmoker Additional Findings: Tobacco non-user Aggressive nonsmoker Vital Signs Temperature 97.3 degrees Fahrenheit 02/17/20 25 Blood pressure systolic 134 mm Hg 02/17/20 25 Blood pressure diastolic 80 mm Hg 025 Heart Rate 97 /min 02/16/2025 Height 72 in 02/16/2025 Weight 259 lbs 02/16/2025 BMI 35.12 kg/m2 02/16/2025 Encounters Encounter Location Date Provider Diagnosis Payam Saravia III, MD [address] [place] [address] [place] [address] 02/16/2025 Payam Saravia Obesity E66.9 ; Insomnia due to medical condition G47.01 ; Depressive disorder, not elsewhere classified F32.9 and Hypothyroidism, unspecified E03.9 Assessments Encounter Date Diagnosis (ICD Code) Assessment Notes Treatment Notes Treatment Clinical Notes 02/16/2025 Obesity (ICD-10 - E66.9) She has lost 4 pounds. She will continue on the Wegovy in the weight loss program.He followed at monthly intervals.She will continue the Zepbound 02/16/2025 Insomnia due to medical condition (ICD-10 - G47.01) She is sleeping well lately and has a little trouble with this problem. 02/16/2025 Depressive disorder, not elsewhere classified (ICD-10 - F32.9) She continues on psychotherapy and on the antidepressant. She is not suicidal. We reviewed weight loss strategies. She will be seen frequently. 02/16/2025 Hypothyroidism, unspecified (ICD-10 - E03.9) She is clinically euthyroid. She has been compliant with her medication. No changes in her therapy was necessary. Comprehensive blood work will thyroid function test was ordered today. Plan Of Treatment Medication Medication Name Sig Start Date Stop Date Notes Wegovy 0.5 MG/0.5ML INJECT 0.5 MG SUBCUTANEOUSLY WEEKLY Subcutaneous Loratadine 10 MG 1 tablet Orally Once a day 03/12/2024 Budesonide-Formotero l Fumarate 160-4.5 MCG/ACT two puffs Inhalation twice a day 02/10/2024 Albuterol Sulfate HFA 108 (90 Base) MCG/ACT 1 puff as needed Inhalation every 4 hrs 08/20/2024 J45.41 Moderate persistent asthmatic bronchitis with acute exacerbation predniSONE 20 MG 2 tablets Orally Onc e a day J45.41 Moderate persistent asthmatic bronchitis with acute exacerbation Zepbound 2.5 MG/0.5ML as directed Subcutaneous once a week 02/06/2024 ProAir HFA 108 (90 Base) MCG/ACT 1 puff as needed Inhalation every 4 hrs 03/23/2021 Ibuprofen 800 MG TAKE 1 TABLET BY [place] THREE TIMES A DAY WITH FOOD OR MILK NEEDED FOR 30 DAYS Celecoxib 100 MG TAKE 1 CAPSULE BY MO [facility] EVERY DAY WITH FOOD FOR 30 DAYS Triamterene-HCTZ 37.5-25 MG 1 tablet Orally one every other day 12/23/2023 Next Appt Details Follow Up: 4 Weeks, Reason: OV recheck BP Provider Name:Payam Saravia , 01/18/2026 02:00:00 PM, [address] [place] [address] [address], [place], [address], Provider Name:Payam Saravia , 09/18/2026 03:00:00 PM, [address] [place] [address] [address], [place], [address], Progress Notes * Donya HOSKINSDOB:1970 (54 yo F)Acc No.[id number]:02/16/2025 Progress Notes Patient: Donya ORTA Provider: Doug Saravia MD :1970 A ge:54 Y S ex:Female Date:02/16/2025 Address:[address] [place], [place] [id number] Subjective: * Chief Complaints: * H ypertensionHistory of depressionGoiterAsthmaInsomniaObesity * HPI: C OVID-19 Screening: She returns for management of hypertension. She is otherwise stable. She continues her efforts at losing weight.Since her last visit she has lost 4 pounds. She will continue on the Zepbound. Her blood pressure todayWas acceptable and no change in her regimen was made. Questions H ave you had any new onset fever, chills, cough, congestion, sore throat, shortness of breath, muscle aches? N o * ROS: G eneral/Constitutional: pain o nly normal aches and pains. C hills d enies.?Fatigue a dmits. F ever d enies. E NT: Decreased hearing d enies. R espiratory: Cough d enies. C ardiovascular: Chest pain with exertion d enies. D yspnea on exertion?denies. S hortness of breath d enies. G astrointestinal: Constipation o ccasional. D ecreased appetite d enies. D iarrhea d enies. H eartburn o ccasional. N ausea d enies. R ectal bleeding d enies. V omiting d enies. H ematology: bruising d enies. p etechiae d enies. S wollen glands n one have been noted. G enitourinary: Frequent urination d enies. M usculoskeletal: Muscle aches d enies. P ainful joints d enies. S ciatica d enies. W eakness d enies. S kin: Itching d enies. R elio d enies. S kin lesion(s)?denies. N eurologic: Difficulty speaking d enies. D izziness d enies.?Headache d enies. L ow back pain d enies. P sychiatric: Depressed mood w hich is mild. * Medical History: * Surgical History: h ip fracture repair [facility] 2005pantoectomy 03/2018No history * Hospitalization/Major Diagno stic Procedure: u pper endoscopy, Dr. Chacon, [facility] 04/2021No history * Family History: F ather: alive 64 yrs, alcoholism, hypertension. M other: alive 63 yrs, stroke, hypertension, cervical cancer, hyperlipidemia. S pouse: alive 46 yrs. 1 sister(s) . 2 son(s) , 4 daughter(s) - healthy. . A sister had breast cancer at 40. 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 De La Cruz. She was born in [place], [place], has 6 well children and has been 19 years to Sparkle. She was born in [place]. The patient has grandchildren who are active in sports. She works and likes her job. * Medications: T akingpredniSONE 20 MG Tablet 2 tablets Orally Once a day , Notes to Pharmacist: J45.41 Moderate persistent asthmatic bronchitis with acute exacerbationAlbuterol Sulfate HFA 108 (90 Base) MCG/ACT Aerosol Solution 1 puff as needed Inhalation every 4 hrs , Notes to Pharmacist: J45.41 Moderate persistent asthmatic bronchitis with acute exacerbationTriamterene-HCTZ 37.5-25 MG Tablet 1 tablet Orally one every other day Celecoxib 100 MG Capsule TAKE 1 CAPSULE BY MOUTH EVERY DAY WITH FOOD FOR 30 DAYS Ibuprofen 800 MG Tablet TAKE 1 TABLET BY MOUTH THREE TIMES A DAY WITH FOOD OR MILK NEEDED FOR 30 DAYS ProAir HFA 108 (90 Base) MCG/ACT Aerosol Solution 1 puff as needed Inhalation every 4 hrs Zepbound 2.5 MG/0.5ML Solution Auto-injector as directed Subcutaneous once a week Budesonide-Formoterol Fumarate 160-4.5 MCG/ACT Aerosol two puffs Inhalation twice a day Loratadine 10 MG Tablet 1 tablet Orally Once a day Wegovy 0.5 MG/0.5ML Solution Auto-injector INJECT 0.5 MG SUBCUTANEOUSLY WEEKLY Subcutaneous Medication List reviewed and reconciled with the patientTaking predniSONE 20 MG Tablet 2 tablets Orally Once a day , Notes to Pharmacist: J45.41 Moderate persistent asthmatic bronchitis with acute exacerbationTaking Albuterol Sulfate HFA 108 (90 Base) MCG/ACT Aerosol Solution 1 puff as needed Inhalation every 4 hrs , Notes to Pharmacist: J45.41 Moderate persistent asthmatic bronchitis with acute exacerbationTaking Triamterene-HCTZ 37.5-25 MG Tablet 1 tablet Orally one every other day Taking Celecoxib 100 MG Capsule TAKE 1 CAPSULE BY MOUTH EVERY DAY WITH FOOD FOR 30 DAYS Taking Ibuprofen 800 MG Tablet TAKE 1 TABLET BY MOUTH THREE TIMES A DAY WITH FOOD OR MILK NEEDED FOR 30 DAYS Taking ProAir HFA 108 (90 Base) MCG/ACT Aerosol Solution 1 puff as needed Inhalation every 4 hrs Taking Zepbound 2.5 MG/0.5ML Solution Auto-injector as directed Subcutaneous once a week Taking Budesonide-Formoterol Fumarate 160-4.5 MCG/ACT Aerosol two puffs Inhalation twice a day Taking Loratadine 10 MG Tablet 1 tablet Orally Once a day Taking Wegovy 0.5 MG/0.5ML Solution Auto-injector INJECT 0.5 MG SUBCUTANEOUSLY WEEKLY Subcutaneous Medication List reviewed and reconciled with the patient * Allergies: P ercocetno[Allergies Verified] Objective: * Vitals: H t: 72, Wt: 259, BMI:35.12, BP: 134/80, HR: 97, Temp: 97.3, Wt-k.48. * Examination: G eneral Examination: GENERAL APPEARANCE: p navid, well nourished, well developed, in no acute distress, calm and relaxed, obese, woman. HEAD: a traumatic, normocephalic. EYES: e darwin, perrla, anicteric, conjugate. EARS: n ormal. NOSE: s eptum intact. ORAL CAVITY: n ormal, unremarkable. NECK/THYROID: n o jugular venous distention, no carotid bruit, thyroid normal. LYMPH NODES: n o enlarged lymph nodes,spleen normal. SKIN: n o suspicious lesions, anicteric. HEART: n o clicks, gallops, murmurs, or rubs, regular rhythm, S1, S2 normal, no s3, or vascular bruits. LUNGS: c lear to auscultation . BREASTS: N ot examined. ABDOMEN: b owel sounds normal, no ascites, no organomegaly, no mass, centripital obesity. RECTAL EXAM: n ot examined. MUSCULOSKELETAL: e xtremities unremarkable, no clubbing, cyanosis or edema. PERIPHERAL PULSES: n ormal. NEUROLOGIC: a lert and oriented, cranial nerves 2-12 grossly intact, deep tendon reflexes 2+ symmetrical, motor strength normal upper and lower extremities, sensory exam intact. PSYCH: a lert, oriented. Assessment: * Assessment: 1. O besity - E66.9 (Primary) N otes :She has lost 4 pounds. She will continue on the Wegovy in the weight loss program.He followed at monthly intervals.She will continue the Zepbound 2 . I nsomnia due to medical condition - G47.01 N otes :She is sleeping well lately and has a little trouble with this problem. 3 . D epressive disorder, not elsewhere classified - F32.9 N otes :She continues on psychotherapy and on the antidepressant. She is not suicidal. We reviewed weight loss strategies. She will be seen frequently. 4 . H ypothyroidism, unspecified - E03.9 N otes :She is clinically euthyroid. She has been compliant with her medication. No changes in her therapy was necessary. Comprehensive blood work will thyroid function test was ordered today. Plan: * Treatment: * Procedure Codes: * Preventive Medicine: Counseling: C are goal follow-up plan: Counseling for abnormal BMI given Y es Above Normal BMI Follow-up D ietary management education, guidance, and counseling, Dietary needs education, Exercise promotion: strength training, Exercise promotion: stretching, Feeding regime, Giving encouragement to exercise, Lifestyle education regarding diet, Nutrition / feeding management, Nutrition therapy, Prescribed activity/exercise education, Prescribed diet education, Prescribed dietary intake, Special diet education, Weight monitoring , Intervention, Order not done: Medical or Other reason not done * Follow Up: 4 Weeks (Reason: OV recheck BP) * Images: * Sign off status: Completed true * Provider: Doug Saravia MD Date: 0 02/16/2025 Generated for Tabby lau/Alexandra/eTtiffanysmitting on: 1 11:33 AM EST History and Physical Notes * HPI (History of Present Illness) Category Sub-Category Detail Notes COVID-19 Screening Questions Have you had any new onset fever, chills, cough, congestion, sore throat, shortness of breath, muscle aches?: No Examination Category Sub-Category Detail Notes General Examination GENERAL APPEARANCE: pleasant , well nourished, well developed, in no acute distress, calm and relaxed, obese, woman HEAD: atraumatic, normocep halic EYES: eomi, perrla, anicte smitha, conjugate EARS: normal NOSE: septum intact NECK/THYROID: no jugular venous di stention, no carotid bruit, thyroid normal HEART: no clicks, gallops, murmurs, or rubs, regular rhythm, S1, S2 normal, no s3, or vascular bruits LUNGS: clear to auscultatio n ABDOMEN: bowel sounds normal, no ascites, no organomegaly, no mass, centripital obesity NEUROLOGIC: alert and oriented, cranial nerves 2-12 grossly intact, deep tendon reflexes 2+ symmetrical, motor strength normal upper and lower extremities, sensory exam intact SKIN: no suspicious lesion s, anicteric PERIPHERAL PULSES: normal BREASTS: Not examined MUSCULOSKELETAL: extremities unremark able, no clubbing, cyanosis or edema LYMPH NODES: no enlarged lymph no abdelrahman,spleen normal RECTAL EXAM: not examined PSYCH: alert, oriented ORAL CAVITY: normal, unremarkable
--- OUTSIDE RECORDS SUMMARY | 2025-02-28 08:30 | XMS_ITS ---
Author Organization Payam Saravia III, MD Address [address] [place] [address] [place] [address] Care Team Providers Care Certified Drug Counselor Name Role Phone Dr. Payam Saravia III [...] Problem Status W/U Status Risk Notes Problem [id number] Acute pneumonia (J18.9) Active confirmed She will finish the antibiotic tomorrow she is afebrile and the cough is diminished and nonproductive. I have ordered a chest x-ray and comprehensive blood work. She was breathing comfortably on room air. 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 [...] Provider Name:Payam Saravia , 01/18/2026 02:00:00 PM, [address] [place] [address] [address], [place], [address], Provider Name:Payam Saravia , 09/18/2026 03:00:00 PM, [address] [place] [address] [address], [place], [address], Progress Notes * Donya HOSKINSDOB:1970 (54 yo F)Acc No.[id number]:02/28/2025 Patient: Donya ORTA Provider: Doug Saravia MD :1970 A ge:54 Y S ex:Female Date:02/28/2025 Address:[address] [place] [address] Subjective: * Chief Complaints: * S ore [...] of provider rendering services: { ...} [address] [facility] [address] L ocation of patient: margarita watts listed [...] stic Procedure: u pper endoscopy, Dr. Chacon, [facility] 04/2021No history * Family History: F [...] De La Cruz. She was born in [place], [place], has 6 well children and has been 19 years to [place]. She was born in [place]. 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 [...] MD Date: 0 02/28/2025 Generated for Tabby lau/Alexandra/Tuckersmitting on: 11:33 AM EST History and Physical Notes * HPI (History of Present Illness) Category Sub-Category Detail Notes Telehealth Location of [facility] rendering services:: {...} [address] [place] [address] [address] [place] [address] Location of patient:: address listed in demographics [...]
--- OUTSIDE RECORDS SUMMARY | 2025-03-23 09:30 | XMS_ITS ---
Author Organization Payam Saravia III, MD Address [address] [place] [address] [place] [address] Care Team Providers Care Director Market Intelligence Name Role Phone Dr. Payam Saravia III Primary Care Provider Allergies Allergen (clinical drug ingredient) Drug/Non Drug Allergy documented on EMR Reaction Allergy Type Onset Date Status acetaminophen / oxycodone Percocet Unknown Drug Allergy Active REASON FOR VISIT Episode of stress, Nausea and vomiting, History of depression, Asthma, Insomnia, Obesity, Diabetes,Hypothyroidism Medications Medication SIG (Take, Route, Frequency, Duration) Notes Start Date End Date Status Ibuprofen 800 MG TAKE 1 TABLET BY MOUTH THREE TIMES A DAY WITH FOOD OR MILK NEEDED FOR 30 DAYS Active Wegovy 0.5 MG/0.5ML INJECT 0.5 MG SUBCUTANEOUSLY WEEKLY Subcutaneous Active ProAir HFA 108 (90 Base) MCG/ACT 1 puff as needed Inhalation every 4 hrs 03/23/2021 Active Loratadine 10 MG 1 tablet Orally Once a day 03/12/2024 Active Budesonide-Formote rol Fumarate 160-4.5 MCG/ACT two puffs Inhalation twice a day 02/10/2024 Active Triamterene-HCTZ 37.5-25 MG 1 tablet Orally one every other day 12/23/2023 Active Celecoxib 100 MG TAKE 1 CAPSULE BY MOUTH EVERY DAY WITH FOOD FOR 30 DAYS Active Albuterol Sulfate HFA 108 (90 Base) MCG/ACT 1 puff as needed Inhalation every 4 hrs J45.41 Moderate persistent asthmatic bronchitis with acute exacerbation 08/20/2024 Active predniSONE 20 MG 2 tablets Orally Onc e a day J45.41 Moderate persistent asthmatic bronchitis with acute exacerbation Active Social History Tobacco Use: Social History Observation Description Date Details (start date - stop date) Never Smoker NA - NA Sex Assigned At : Social History Observation Description Sex Assigned At Female Tobacco Control (Standard) Question Answer Notes Tobacco use: Nonsmoker Additional Findings: Tobacco non-user Aggressive nonsmoker Vital Signs Height 72 in 03/23/2025 Weight 259 lbs 03/23/2025 BMI 35.12 kg/m2 03/23/2025 Encounters Encounter Location Date Provider Diagnosis Payam Saravia III, MD [address] [place] [address] [place] [address] 03/23/2025 Payam Saravia Acute gastritis without hemorrhage, unspecified gastritis type K29.00 ; Nontoxic multinodular goiter E04.2 ; Depressive disorder, not elsewhere classified F32.9 ; Insomnia due to medical condition G47.01 and Obesity E66.9 Assessments Encounter Date Diagnosis (ICD Code) Assessment Notes Treatment Notes Treatment Clinical Notes 03/23/2025 Acute gastritis without hemorrhage, unspecified gastritis type (ICD-10 - K29.00) She declined prescription medications. We decided she would do her most to reduce the stress in her life and rinsed in a healthy diet and get enough sleep. She will continue on her current medication. Follow-up was arranged in one week. 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 She is feeling healthy well at this time. 03/23/2025 Depressive disorder, not elsewhere classified (ICD-10 - F32.9) She continues on psychotherapy and on the antidepressant. She is not suicidal. We reviewed weight loss strategies. She will be seen frequently. 03/23/2025 Insomnia due to medical condition (ICD-10 - G47.01) She is sleeping well lately and has a little trouble with this problem. 03/23/2025 Obesity (ICD-10 - E66.9) She has lost 4 pounds. She will continue on the Wegovy in the weight loss program.He followed at monthly intervals.She will continue the Zepbound Plan Of Treatment Medication Medication Name Sig Start Date Stop Date Notes Ibuprofen 800 MG TAKE 1 TABLET BY PEARL THREE TIMES A DAY WITH FOOD OR MILK NEEDED FOR 30 DAYS Wegovy 0.5 MG/0.5ML INJECT 0.5 MG SUBCUTANEOUSLY WEEKLY Subcutaneous ProAir HFA 108 (90 Base) MCG/ACT 1 puff as needed Inhalation every 4 hrs 03/23/2021 Loratadine 10 MG 1 tablet Orally Once a day 03/12/2024 Budesonide-Formotero l Fumarate 160-4.5 MCG/ACT two puffs Inhalation twice a day 02/10/2024 Triamterene-HCTZ 37.5-25 MG 1 tablet Orally one every other day 12/23/2023 Celecoxib 100 MG TAKE 1 CAPSULE BY MO [facility] EVERY DAY WITH FOOD FOR 30 DAYS Albuterol Sulfate HFA 108 (90 Base) MCG/ACT 1 puff as needed Inhalation every 4 hrs 08/20/2024 J45.41 Moderate persistent asthmatic bronchitis with acute exacerbation predniSONE 20 MG 2 tablets Orally Onc e a day J45.41 Moderate persistent asthmatic bronchitis with acute exacerbation Next Appt Details Follow Up: 1 Week, Reason: o v Provider Name:Payam Saravia , 01/18/2026 02:00:00 PM, [address] [place] [address] [address], [place], [address], Provider Name:Payam Saravia , 09/18/2026 03:00:00 PM, [address] [place] [address] [address], [place], [address], Progress Notes * Donya HOSKINSDOB:1970 (54 yo F)Acc No.[id number]:03/23/2025 Patient: Donya ORTA Provider: Doug Saravia MD :1970 A ge:54 Y S ex:Female Date:03/23/2025 Address:[address] [place], [place] [address] Subjective: * Chief Complaints: * E pisode of stressNausea and vomitingHistory of depressionAsthmaInsomniaObesityDiabetesHypothyroidism * HPI: * : vomiting abd pain stressing. Telehealth L ocation of provider rendering services: { ...} [address] [facility] [address] L ocation of patient: margarita ddress listed in demographics for today's visit P atient identification confirmed using: DAVID Saldana ame elehealth method: T elephone only. Patient not visible to care provider. C onsent: P atient verbally consented to treatment, Patient verbally consented to billing insurance company, Patient informed of any privacy concerns related to method of visit T otal time spent with patient (mins) 1 5 * ROS: G eneral/Constitutional: pain o nly normal aches and pains. C hills d enies.?Fatigue a dmits. F ever d enies. E NT: Decreased hearing d enies. R espiratory: Cough d enies. C ardiovascular: Chest pain with exertion d enies. D yspnea on exertion?denies. S hortness of breath d enies. G astrointestinal: Constipation d enies. D ecreased appetite d enies.?Diarrhea d enies. H eartburn d enies. N ausea d enies. R ectal bleeding?denies. V omiting d enies. H ematology: bruising [...] pain d enies. P sychiatric: Depressed mood d enies. * Medical History: * Surgical History: h ip fracture repair [facility] 2005pantoectomy 03/2018No history * Hospitalization/Major Diagno stic Procedure: u pper endoscopy, Dr. Chacon, [facility] 04/2021No history * Family History: F ather: [...] De La Cruz. She was born in [place], [place], has 6 well children and has been 19 years to [place]. She was born in [place]. The patient has grandchildren who are active [...] puff as needed Inhalation every 4 hrs Budesonide-Formoterol Fumarate 160-4.5 MCG/ACT Aerosol two puffs Inhalation twice a day Loratadine 10 MG Tablet 1 tablet Orally Once a day Wegovy 0.5 MG/0.5ML Solution Auto-injector INJECT 0.5 MG SUBCUTANEOUSLY WEEKLY Subcutaneous Taking predniSONE 20 MG Tablet 2 tablets Orally [...] as needed Inhalation every 4 hrs Taking Budesonide-Formoterol Fumarate 160-4.5 MCG/ACT Aerosol two puffs Inhalation twice a day Taking Loratadine 10 MG Tablet 1 tablet Orally Once a day Taking Wegovy 0.5 MG/0.5ML Solution Auto-injector INJECT 0.5 MG SUBCUTANEOUSLY WEEKLY Subcutaneous DiscontinuedZepbound 2.5 MG/0.5ML Solution Auto-injector as directed Subcutaneous once a week Medication List reviewed and reconciled with the patientDiscontinued Zepbound 2.5 MG/0.5ML Solution Auto-injector as directed Subcutaneous once a week Medication List reviewed and reconciled with the patient * Allergies: P ercocetno[Allergies Verified] Objective: * Vitals: H t: 72, Wt: 259, BMI:35.12, Wt-k.48. Assessment: * Assessment: 1. A cute gastritis without hemorrhage, unspecified gastritis type - K29.00 (Primary) ? N otes :She declined prescription medications. We decided she would do her most to reduce the stress in her life and rinsed in a healthy diet and get enough sleep. She will continue on her current medication. Follow-up was arranged in one week. 2 . 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 She is feeling healthy well at this time. 3 . D epressive disorder, not elsewhere classified - F32.9 N otes :She continues on psychotherapy and on the antidepressant. She is not suicidal. We reviewed weight loss strategies. She will be seen frequently. 4 . I nsomnia due to medical condition - G47.01 N otes :She is sleeping well lately and has a little trouble with this problem. 5 . O besity - E66.9 N otes :She has lost 4 pounds. She will continue on the Wegovy in the weight loss program.He followed at monthly intervals.She will continue the Zepbound Plan: * Treatment: * Procedure Codes: 9 8012 SYNCH AUDIO-ONLY EST SF 10 * Preventive Medicine: Counseling: C are goal follow-up plan: Counseling for abnormal BMI given Y es Above Normal BMI Follow-up D ietary management education, guidance, and counseling, Dietary needs education * Follow Up: 1 Week (Reason: ov) * Images: * Sign off status: Completed true * Provider: Doug Saravia MD Date: 0 03/23/2025 Generated for Tabby lau/Alexandra/eTransmitting on: 1 11:33 AM EST History and Physical Notes * HPI (History of Present Illness) Category Sub-Category Detail Notes Telehealth Location of [facility] rendering services:: {...} [address] [place] [address] [address] [facility] [address] Location of patient:: address listed in demographics [...]
--- OUTSIDE RECORDS SUMMARY | 2025-03-30 09:45 | XMS_ITS ---
Author Organization Payam Saravia III, MD Address [address] [place] [address] [address] [place] [address] Care Team Providers Care Track Vehicle Repairer Name Role Phone Dr. Payam Saravia III Primary Care Provider [phone] Allergies Allergen (clinical drug ingredient) Drug/Non Drug Allergy documented on EMR Reaction Allergy Type Onset Date Status acetaminophen / oxycodone Percocet Unknown Drug Allergy Active REASON FOR VISIT Zepbound weight loss program, Obesity, History of depression, Goiter, Asthma, Insomnia Medications Medication SIG (Take, Route, Frequency, Duration) Notes Start Date End Date Status Ibuprofen 800 MG TAKE 1 TABLET BY MOUTH THREE TIMES A DAY WITH FOOD OR MILK NEEDED FOR 30 DAYS Active Budesonide-Formote rol Fumarate 160-4.5 MCG/ACT two puffs Inhalation twice a day 02/10/2024 Active ProAir HFA 108 (90 Base) MCG/ACT 1 puff as needed Inhalation every 4 hrs 03/23/2021 Active Wegovy 0.5 MG/0.5ML INJECT 0.5 MG SUBCUTANEOUSLY WEEKLY Subcutaneous Active Loratadine 10 MG 1 tablet Orally Once a day 03/12/2024 Active Celecoxib 100 MG TAKE 1 CAPSULE BY MOUTH EVERY DAY WITH FOOD FOR 30 DAYS Active predniSONE 20 MG 2 tablets Orally Onc e a day J45.41 Moderate persistent asthmatic bronchitis with acute exacerbation Active Triamterene-HCTZ 37.5-25 MG 1 tablet Orally one every other day 12/23/2023 Active Albuterol Sulfate HFA 108 (90 Base) MCG/ACT 1 puff as needed Inhalation every 4 hrs J45.41 Moderate persistent asthmatic bronchitis with acute exacerbation 08/20/2024 Active Social History Tobacco Use: Social History Observation Description Date Details (start date - stop date) Never Smoker NA - NA Sex Assigned At : Social History Observation Description Sex Assigned At Female Tobacco Control (Standard) Question Answer Notes Tobacco use: Nonsmoker Additional Findings: Tobacco non-user Aggressive nonsmoker Vital Signs Temperature 97.3 degrees Fahrenheit 03/30/20 25 Blood pressure systolic 138 mm Hg 03/30/20 25 Blood pressure diastolic 79 mm Hg 025 Heart Rate 81 /min 03/30/2025 Height 72 in 03/30/2025 Weight 254 lbs 03/30/2025 BMI 34.44 kg/m2 03/30/2025 Encounters Encounter Location Date Provider Diagnosis Payam Saravia III, MD [address] [place] [address] [place] [address] 03/30/2025 Payam Saravia Obesity E66.9 ; Nontoxic multinodular goiter E04.2 ; Depressive disorder, not elsewhere classified F32.9 and Mild intermittent asthma without complication J45.20 Assessments Encounter Date Diagnosis (ICD Code) Assessment Notes Treatment Notes Treatment Clinical Notes 03/30/2025 Obesity (ICD-10 - E66.9) She has lost 5 more pounds. She will continue on the zepbound in the weight loss program and be followed at monthly intervals.She will continue the same dose. 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 She is feeling healthy well at this time. 03/30/2025 Depressive disorder, not elsewhere classified (ICD-10 - F32.9) She continues on psychotherapy and on the antidepressant. She is not suicidal. We reviewed weight loss strategies. She will be seen frequently. 03/30/2025 Mild intermittent asthma without complication (ICD-10 - J45.20) Her lungs were clear today and she was breathing without difficulty. Use her medications as prescribed if she has return of thhe asthma. I have asked her to notify me if this occurs. Plan Of Treatment Medication Medication Name Sig Start Date Stop Date Notes Ibuprofen 800 MG TAKE 1 TABLET BY [facility] THREE TIMES A DAY WITH FOOD OR MILK NEEDED FOR 30 DAYS Budesonide-Formotero l Fumarate 160-4.5 MCG/ACT two puffs Inhalation twice a day 02/10/2024 ProAir HFA 108 (90 Base) MCG/ACT 1 puff as needed Inhalation every 4 hrs 03/23/2021 Wegovy 0.5 MG/0.5ML INJECT 0.5 MG SUBCUTANEOUSLY WEEKLY Subcutaneous Loratadine 10 MG 1 tablet Orally Once a day 03/12/2024 Celecoxib 100 MG TAKE 1 CAPSULE BY [facility] EVERY DAY WITH FOOD FOR 30 DAYS predniSONE 20 MG 2 tablets Orally Onc e a day J45.41 Moderate persistent asthmatic bronchitis with acute exacerbation Triamterene-HCTZ 37.5-25 MG 1 tablet Orally one every other day 12/23/2023 Albuterol Sulfate HFA 108 (90 Base) MCG/ACT 1 puff as needed Inhalation every 4 hrs 08/20/2024 J45.41 Moderate persistent asthmatic bronchitis with acute exacerbation Next Appt Details Follow Up: 3 Months, Reason: ov no tests Provider Name:Payam Saravia , 01/18/2026 02:00:00 PM, [address] [place] [address] [address], [place], [address], Provider Name:Payam Saravia , 09/18/2026 03:00:00 PM, [address] [place] [address] [address], [place], [address], Progress Notes * Donya HOSKINSDOB:1970 (54 yo F)Acc No.[id number]:03/30/2025 Progress Notes Patient: Donya ORTA Provider: Doug Saravia MD :1970 A ge:54 Y S ex:Female Date:03/30/2025 Address:[address] [place], [place] [phone] Subjective: * Chief Complaints: * Z epbound weight loss programObesityHistory of depressionGoiterAsthmaInsomnia * HPI: C OVID-19 Screening: S he continues on the weekly injections of Zepbound Initially she had some nausea but she says her stomach feels better now. She has lost 5 pounds. She is taking allergy medication now in pollen season but her asthma has not been active. She has had no recent wheezing and is sleeping better. She was continued on all of her medications without change. I recommmended nondrowsy antihistamines. Questions H ave you had any new [...] enies. H eartburn o ccasional. N ausea R esolved. R ectal bleeding d enies. V omiting [...] stic Procedure: u pper endoscopy, Dr. Chacon, [facility] 04/2021No history * Family History: F [...] De La Cruz. She was born in [place], [place], has 6 well children and has been 19 years to [place]. She was born in [place]. The patient has grandchildren who are active [...] as needed Inhalation every 4 hrs Taking Budesonide- Formoterol Fumarate 160-4.5 MCG/ACT Aerosol two puffs Inhalation twice a day Taking Loratadine 10 MG Tablet 1 tablet Orally Once a day Taking Wegovy 0.5 MG/0.5ML Solution Auto-injector INJECT 0.5 MG SUBCUTANEOUSLY WEEKLY Subcutaneous Medication List reviewed and reconciled with the patient * Allergies: P shay[Allergies Verified] Objective: * Vitals: H t: 72, Wt: 254, BMI:34.44, BP: 138/79, HR: 81, Temp: 97.3, Wt-k.21. * Examination: G eneral Examination: GENERAL APPEARANCE: p navid, well nourished, well developed, in no acute distress, calm and relaxed, obese, woman. HEAD: a traumatic, normocephalic. EYES: e darwin, perrla, anicteric, conjugate. EARS: n ormal. NOSE: s eptum intact, turbinates red and swollen. ORAL CAVITY: n ormal, unremarkable. NECK/THYROID: n [...] E66.9 (Primary) N otes :She has lost 5 more pounds. She will continue on the zepbound in the weight loss program and be followed at monthly intervals.She will continue the same dose. 2 . N ontoxic multinodular goiter - E04.2 N otes :Her staff physical therapy assistant has made no change in her therapy. She is feeling healthy well at this time. 3 . D epressive disorder, not elsewhere classified - F32.9 N otes :She continues on psychotherapy and on the antidepressant. She is not suicidal. We reviewed weight loss strategies. She will be seen frequently. 4 . M ild intermittent asthma without complication - J45.20 N otes :Her lungs were clear today and she was breathing without difficulty. Use her medications as prescribed if she has return of thhe asthma. I have asked her to notify me if this occurs. Plan: * Treatment: * Procedure Codes: * [...] Other reason not done * Follow Up: 3 Months (Reason: ov no tests) * Images: * Sign off status: Completed true * Provider: Doug Saravia MD Date: 0 03/30/2025 Generated for Tabby lau/Alexandra/Shawnaitting on: 11:33 AM EST History and Physical [...] anicte smitha, conjugate EARS: normal NOSE: septum intact, turbi nates red and swollen NECK/THYROID: no jugular venous di stention, no [...]
--- OUTSIDE RECORDS SUMMARY | 2025-04-30 04:30 | XMS_ITS ---
Author Organization [facility] [address] Address [address] [place] [address] Care Team Providers Care Quality Systems Engineer Name Role Phone Chikis Swartz Unavailable [phone] THUAN ONEIL Unavailable [phone] Medications Medication SIG (Take, Route, Frequency, Duration) [...] Active Encounters Encounter Location Date Provider Diagnosis [facility] [address] [place] [address] 04/30/2025 THUAN ONEIL Other obesity due to [...] software and direct typing Please excuse inadvertent international first officer or typing errors, or uncorrected word substitutions Although every attempt has been made by the provider to proofread this document, occasional misspellings and typographical errors may still be present Due to the previous pandemic, and the use of personal protective equipment (PPE) This may decrease voice recognition accuracy Inadvertent international first officer errors may occur 04/30/2025 BMI 34.0-34.9,adult (ICD-10 [...] software and direct typing Please excuse inadvertent international first officer or typing errors, or uncorrected word substitutions Although every attempt has been made by the provider to proofread this document, occasional misspellings and typographical errors may still be present Due to the previous pandemic, and the use of personal protective equipment (PPE) This may decrease voice recognition accuracy Inadvertent international first officer errors may occur 04/30/2025 Dietary counseling and [...] software and direct typing Please excuse inadvertent international first officer or typing errors, or uncorrected word substitutions Although every attempt has been made by the provider to proofread this document, occasional misspellings and typographical errors may still be present Due to the previous pandemic, and the use of personal protective equipment (PPE) This may decrease voice recognition accuracy Inadvertent international first officer errors may occur 04/30/2025 Prediabetes (ICD-10 - [...] software and direct typing Please excuse inadvertent international first officer or typing errors, or uncorrected word substitutions Although every attempt has been made by the provider to proofread this document, occasional misspellings and typographical errors may still be present Due to the previous pandemic, and the use of personal protective equipment (PPE) This may decrease voice recognition accuracy Inadvertent international first officer errors may occur 04/30/2025 Encounter for examination [...] software and direct typing Please excuse inadvertent international first officer or typing errors, or uncorrected word substitutions Although every attempt has been made by the provider to proofread this document, occasional misspellings and typographical errors may still be present Due to the previous pandemic, and the use of personal protective equipment (PPE) This may decrease voice recognition accuracy Inadvertent international first officer errors may occur Plan Of Treatment Medication Medication Name Sig Start Date Stop Date Notes Wegovy 1.7 MG/0.75ML Solution Auto-injector 1.7mg Subcutaneous weekly; Duration: 30 days Next Appt Details Provider Name:THUAN ONEIL, 11/26/2025 09:15:00 AM, [address], [place], [address], History and Physical Notes * HPI (History [...] IBS modified diet significantly Gastric Sleeve at [facility] Dr. Franks 2014 Thyroid nodules evaluated, benign, Dr. Muro , Underwent FNA and ultrasound Exercise: Currently walks at work + x3 days/wk for 30-40 min; no weight lifting Non-smoker ETOH use: socially PCP Dr. 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 Lowest weight: 220 lbs Goal weight: 220 lbs MISTI screening/STOP-BANG/[place], evaluated in 2015 at [facility], negative Examination Category Sub-Category Detail Notes Category Not es General Examination GENERAL APPEARANCE: in no ac [place] distress, well developed, well nourished HEAD: normocephalic, [...] Notes * Donya HOSKINSDOB:1970 (55 yo F)Acc No.[id number]:04/30/2025 Patient: Flo dylanAdrianneDonya Provider: Stanford ONEIL NP :1970 A ge:54 Y S ex:Female Date:04/30/2025 Address:[address] [place] [address] Subjective: * Chief Complaints: * HPI: C [...] IBS modified diet significantly Gastric Sleeve at [facility] Dr. Franks 2014 Thyroid nodules evaluated, benign, Dr. Muro , Underwent FNA and ultrasound Exercise: Currently walks at work + x3 days/wk for 30-40 min; no weight lifting Non-smoker ETOH use: socially PCP Dr. 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 * ROS: A ll Other Systems: [...] calories - E66.09 (Primary) 2 . B [place] 34.0-34.9,adult - Z68.34 3 . D ietary [...] software and direct typing Please excuse inadvertent international first officer or typing errors, or uncorrected word substitutions Although every attempt has been made by the provider to proofread this document, occasional misspellings and typographical errors may still be present Due to the previous pandemic, and the use of personal protective equipment (PPE) This may decrease voice recognition accuracy Inadvertent international first officer errors may occur Plan: * Treatment: * Procedure Codes: 9 9199 NO SHOW OFFICE VISIT Billing Information: * Procedure Codes: 42997 NO SHOW OFFICE VISIT. * Electronic signature of NICO ONEIL on 11/23/2025 at 11:32 AM EST Sign off status: Pending * Provider: Stanford ONEIL NP Date: 0 04/30/2025 Generated for Tabby lau/Alexandra/Errol on: 1 11:32 AM EST
--- OUTSIDE RECORDS SUMMARY | 2025-06-22 04:00 | XMS_ITS ---
Author Organization Payam Saravia III, MD Address [address] [place] [address] [place] [address] Care Team Providers Care Licensed Bondsman Name Role Phone Dr. Payam Saravia III [...] Problem Status W/U Status Risk Notes Problem [id number] Sleep apnea, unspecified (G47.30) Active confirmed She is doing well with the CPAP machine and no adjustment was necessary. Problem [id number] Frequent headaches (R51.9) Active confirmed The meloxicam [...] Provider Diagnosis Payam Saravia III, MD [address] [place] [address] [place] [address] 06/22/2025 Payam Saravia Obesity E66.9 ; Frequent [...] Nontoxic multinodular goiter (ICD-10 - E04.2) Her disbursement clerk has made no change in her therapy. She is feeling healthy well at this time. 06/22/2025 Type 2 diabetes mellitus without complication, without long-term current use of insulin (ICD-10 - E11.9) Plan Of Treatment Medication Medication Name Sig Start Date Stop Date Notes Triamterene-HCTZ 37.5-25 MG 1 tablet Orally one every other day 12/23/2023 Celecoxib 100 MG TAKE 1 CAPSULE BY MO [facility] EVERY DAY WITH FOOD FOR [...] Name:Payam Saravia , 01/18/2026 02:00:00 PM, [address] [facility] [address], [place], [address], Provider Name:Payam Saravia , 09/18/2026 03:00:00 PM, 10 [facility] [address] [place], [address], Progress Notes * Donay HOSKINSDOB:1970 (55 yo F)Acc No.[id number]:06/22/2025 Progress Notes Patient: Donya ORTA Provider: Doug Saravia MD :1970 A ge:55 Y S ex:Female Date:06/22/2025 Address:[address] [place] [address] Subjective: * Chief Complaints: * R ecent [...] Procedure: u pper endoscopy, Dr. Chacon, [facility] 04/2021No history * Family History: F ather: [...] De La Cruz. She was born in [place], [place], has 6 well children and has been 19 years to [place]. She was born in [place]. The patient has grandchildren who are active [...] multinodular goiter - E04.2 N otes :Her disbursement clerk has made no change in her therapy. [...] Saravia MD Date: 0 06/22/2025 Generated for aTbby lau/Alexandra/Tuckersmitting on: 1 11:34 AM EST History and Physical Notes * [...]
--- OUTSIDE RECORDS SUMMARY | 2025-06-29 04:30 | XMS_ITS ---
Author Organization Payam Saravia III, MD Address [address] [place] [address] [address] [place] [address] Care Team Providers Care Fitness Services Manager Name Role Phone Dr. 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.2) Her advertising assistant manager has made no change in her [...] 100 MG TAKE 1 CAPSULE BY MO [facility] EVERY DAY WITH FOOD FOR 30 [...] Provider Name:Payam Saravia , 01/18/2026 02:00:00 PM, [address] [place] [address] [address], [place], [address], Provider Name:Payam Saravia , 09/18/2026 03:00:00 PM, [address] [place] [address] [address], [place], [address], Progress Notes * Donya HOSKINSDOB:1970 (55 yo F)Acc No.[id number]:06/29/2025 Patient: Flo MOOK Donya Provider: Doug Saravia MD :1970 A ge:55 Y S ex:Female Date:06/29/2025 Address:[address] [place], [place] [id number] Subjective: * Chief Complaints: * F requent [...] of provider rendering services: { ...} [address] [facility] [address] [facility] [address] L ocation of patient: margarita watts listed [...] stic Procedure: u pper endoscopy, Dr. Chacon, [facility] 04/2021No history * Family History: F [...] De La Cruz. She was born in [place], [place], has 6 well children and has been 19 years to [place]. She was born in [place]. The patient has grandchildren who are active [...] multinodular goiter - E04.2 N otes :Her advertising assistant manager has made no change in her [...] Date: 06/29/2025 Generated for Tabby lau/Alexandra/eTransmitting on: 1 11:35 AM EST History and Physical Notes * HPI (History of Present Illness) Category Sub-Category Detail Notes Telehealth Location of [facility] ider rendering services:: {...} [address] [facility] [address] Location of patient:: address listed in demographics [...]
--- OUTSIDE RECORDS SUMMARY | 2025-09-07 09:20 | XMS_ITS ---
Author Organization Payam Saravia III, MD Address [address] [facility] [place] [place] [address] Care Team Providers Care Data Officer Name Role Phone Dr. Payam Saravia III Primary Care Provider [phone] REASON FOR VISIT Dental Cleaning Medications Medication SIG (Take, Route, Fr equency, Duration) Notes Start Date End Date Status Amoxicillin 500 MG 4 tablets Orally onc e for 1 days 09/07/2025 09/08/2025 Active Social History Sex Assigned At : Social History Observation Description Sex Assigned At Female Encounters Encounter Location Date Provider Diagnosis Payam Saravia III, MD [address] [place] [address] [place] [address] 09/07/2025 Payam Saravia Plan Of Treatment Medication Medication Name Sig Start Date Stop Date Notes Amoxicillin 500 MG 4 tablets Orally once for 1 days 202409/08/2025 Next Appt Details Provider Name:Payam Saravia , 01/18/2026 02:00:00 PM, [address] [facility] [place], [address], Provider Name:Payam Saravia , 09/18/2026 03:00:00 PM, [address] [facility] [place], [address], Progress Notes * Donya HOSKINSDOB:1970 (55 yo F)Acc No.[id number]:09/07/2025 Patient: Donya ORTA :1970 A ge:55 Y S ex:Female Address:[address] [place], [place] [id number] * Refills Start Amoxicillin Capsule, 500 MG, Orally, 4 Tablet, 4 tablets, once, 1 days, Refills=0 * true * Date: Generated for Tabby lau/Alexandra/Shawnaitting on: 11:32 AM EST
--- OUTSIDE RECORDS SUMMARY | 2025-09-16 09:45 | XMS_ITS ---
Author Organization Payam Saravia III, MD Address [address] [place] [address] Care Team Providers Care Precinct Police Lieutenant Name Role Phone Dr. Payam Saravia III Primary Care Provider Allergies Allergen (clinical drug ingredient) Drug/Non Drug Allergy documented on EMR Reaction Allergy Type Onset Date Status No Known Food Allergy Unknown Drug Allergy Active acetaminophen / oxycodone Percocet Unknown Drug Allergy Active Reason For Referral Reason Evaluate and Treat Left hip Pain Had hip replacement in 2019 Diagnosis 1 Hip pain (M25.559) Referral Organization Payam Saravia III, MD Referring Provider First Name Payam Referring Provider Last Name Manjit Referring Provider Speciality Internal M edicine Referred Provider PAMELLA LINCOLN Referred Provider Specialty Orthopedic S urgery General Notes Kamila John 09/19/2025 11:26:26 AM > Referral and progress note faxed.Alvaro Amber 11/15/2025 11:41:25 AM > Spoke with patient, she has not been scheduled at this time. patient was provided number to call and schedule an appointment. Referral Priority Routine REASON FOR VISIT Annual Exam Medications Medication SIG (Take, Route, Frequency, Duration) Notes Start Date End Date Status Clobetasol Propionate 0.05 % External Active Loratadine 10 MG 1 tablet Orally Once a day 03/12/2024 Active predniSONE 20 MG 2 tablets Orally Onc e a day J45.41 Moderate persistent asthmatic bronchitis with acute exacerbation Active Albuterol Sulfate HFA 108 (90 Base) MCG/ACT 1 puff as needed Inhalation every 4 hrs J45.41 Moderate persistent asthmatic bronchitis with acute exacerbation 08/20/2024 Active Wegovy 0.5 MG/0.5ML INJECT 0.5 MG SUBCUTANEOUSLY WEEKLY Subcutaneous Active Triamterene-HCTZ 37.5-25 MG 1 tablet Orally one every other day 12/23/2023 Active ProAir HFA 108 (90 Base) MCG/ACT [...] puffs Inhalation twice a day 02/10/2024 Active Social History Tobacco Use: Social History Observation Description Date Details (start date - stop date) Never Smoker NA - NA Sex Assigned At : Social History Observation Description Sex Assigned At Female Tobacco Control (Standard) Question Answer Notes Tobacco use: Nonsmoker Additional Findings: Tobacco non-user Ex-cigaret te smoker AUDIT-C (Standard) Question Answer Notes Did you have a drink containing alcohol in the p ast year? No Points 0 Interpretation Negative Vital Signs Temperature 98.2 degrees Fahrenheit 09/16/20 25 Blood pressure systolic 136 mm Hg 09/16/20 25 Blood pressure diastolic 74 mm Hg 025 Heart Rate 84 /min 09/16/2025 Height 72 in 09/16/2025 Weight 246 lbs 09/16/2025 BMI 33.36 kg/m2 09/16/2025 Encounters Encounter Location Date Provider Diagnosis Payam Saravia III, MD [address] [place] [address] [place] [address] 09/16/2025 Payam Saravia Obesity E66.9 ; Iron deficiency anemia due to chronic blood loss D50.0 ; Depressive disorder, not elsewhere classified F32.9 ; Nontoxic multinodular goiter E04.2 ; Mild intermittent asthma without complication J45.20 ; Insomnia due to medical condition G47.01 ; Hypothyroidism, unspecified E03.9 and Sleep apnea, unspecified G47.30 Assessments Encounter Date Diagnosis (ICD Code) Assessment Notes Treatment Notes Treatment Clinical Notes 09/16/2025 Obesity (ICD-10 - E66.9) He has lost 6 pounds through diet and exercise. Her body mass index is 33.36. She will continue to lose weight at a rate of 1 pound per week. 09/16/2025 Iron deficiency anemia due to chronic blood loss (ICD-10 - D50.0) He was continued on her iron supplementation. 09/16/2025 Depressive disorder, not elsewhere classified (ICD-10 - F32.9) She continues on psychotherapy and on the antidepressant. She is not suicidal. We reviewed weight loss strategies. She will be seen frequently. 09/16/2025 Nontoxic multinodular goiter (ICD-10 - E04.2) Her asw specialist has made no change in her therapy. She is feeling healthy well at this time. 09/16/2025 Mild intermittent asthma without complication (ICD-10 - J45.20) Her lungs were clear today and she was breathing without difficulty. Use her medications as prescribed if she has return of thhe asthma. I have asked her to notify me if this occurs. 09/16/2025 Insomnia due to medical condition (ICD-10 - G47.01) She is sleeping well lately and has a little trouble with this problem. 09/16/2025 Hypothyroidism, unspecified (ICD-10 - E03.9) She is clinically euthyroid. She has been compliant with her medication. No changes in her therapy was necessary. Comprehensive blood work will thyroid function test was ordered today. 09/16/2025 Sleep apnea, unspecified (ICD-10 - G47.30) She is doing well with the CPAP machine and no adjustment was necessary. Plan Of Treatment Medication Medication Name Sig Start Date Stop Date Notes Clobetasol Propionate 0.05 % External Loratadine 10 MG 1 tablet Orally Once a day 03/12/2024 predniSONE 20 MG 2 tablets Orally Onc e a day J45.41 Moderate persistent asthmatic bronchitis with acute exacerbation Albuterol Sulfate HFA 108 (90 Base) MCG/ACT 1 puff as needed Inhalation every 4 hrs 08/20/2024 J45.41 Moderate persistent asthmatic bronchitis with acute exacerbation Wegovy 0.5 MG/0.5ML INJECT 0.5 MG SUBCUTANEOUSLY WEEKLY Subcutaneous Triamterene-HCTZ 37.5-25 MG 1 tablet Orally one every other day 12/23/2023 ProAir HFA 108 (90 Base) MCG/ACT 1 [...] two puffs Inhalation twice a day 02/10/2024 Pending Test Test Name Order Date PROFILE, FASTING (COMPREHENSIVE METABOLI C) 09/16/2025 CBC w DIFF 09/16/2025 Ferritin 09/16/2025 Lipid Panel 09/16/2025 Referrals Referral Date Details 09/16/2025 09/16/2025, Evaluate and Treat Left hip Pain Had hip replacement in 2019, PAMELLA LINCOLN Next Appt Details Follow Up: 4 Months, Reason: OV Provider Name:Payam Saravia , 01/18/2026 02:00:00 PM, [address] [place] [address] [address], [place], [address], Provider Name:Payam Saravia , 09/18/2026 03:00:00 PM, [address] [place] [address] [address], [place], [address], Progress Notes * Adrianne HOSKINSdominicDOB:1970 (55 yo F)Acc No.[id number]:09/16/2025 Progress Notes Patient: Donya ORTA Provider: Doug Saravia MD :1970 A ge:55 Y S ex:Female Date:09/16/2025 Address:[address] [place], [place] [id number] Subjective: * Chief Complaints: * A nnual Exam * HPI: D epression Screening: Stanford mcgill returns to the office at the age of 55 for her annual physical examination. She has been feeling generally healthy and well. One problem is that many years ago she fractured her left hip and it was surgically repaired by Dr. Franklin. He is now retired. Left leg feels like there is some looseness in the joint or where it healed. She would like [facility] orthopedic opinion about the stability of the fracture site. She was referred to [facility] orthopedist for this.She has lost 6 pounds her diet no change. PHQ-9 L ittle interest or pleasure in doing things?Not at all F eeling down, depressed, or hopeless M ore than half the days T rouble falling or staying asleep, or sleeping too much N early every day F eeling tired or having little energy N ot at all P oor appetite or overeating N ot at all F eeling bad about yourself or that you are a failure, or have let yourself or your family down N ot at all T rouble concentrating on things, such as reading the newspaper or watching television N ot at all M oving or speaking so slowly that other people could have noticed; or the opposite, being so fidgety or restless that you have been moving around a lot more than usual N ot at all T houghts that you would be better off or of hurting yourself in some way N ot at all T otal Score 5 I nterpretation M ild Depression Interpretation and Intervention D epression Screening Findings P ositive S uicide Risk Assessment Performed 1 C OVID-19 Screening: Questions H ave you had any new [...] Procedure: u pper endoscopy, Dr. Chacon, [facility] 04/2021No history * Family History: [...] N onsmoker A dditional Findings: Tobacco non-user E x-cigarette smoker D rugs/Alcohol: D rugs H ave you used drugs other than those for medical reasons in the past 12 months? N o D rug/Alcohol: A GALDINO-C (Standard) D id you have a drink containing alcohol in the past year? 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 De La Cruz. She was born in [place], [place], has 6 well children and has been 19 years to [place]. She was born in [place]. The patient has grandchildren who are active [...] J45.41 Moderate persistent asthmatic bronchitis with acute exacerbationProAir HFA 108 (90 Base) MCG/ACT Aerosol Solution 1 puff as needed Inhalation every 4 hrs Wegovy 0.5 MG/0.5ML Solution Auto-injector INJECT 0.5 MG SUBCUTANEOUSLY WEEKLY Subcutaneous Taking predniSONE 20 MG Tablet 2 tablets Orally Once a day , Notes to Pharmacist: J45.41 Moderate persistent asthmatic bronchitis with acute exacerbationTaking Albuterol Sulfate HFA 108 (90 Base) MCG/ACT Aerosol Solution 1 puff as needed Inhalation every 4 hrs , Notes to Pharmacist: J45.41 Moderate persistent asthmatic bronchitis with acute exacerbationTaking ProAir HFA 108 (90 Base) MCG/ACT Aerosol Solution 1 puff as needed Inhalation every 4 hrs Taking Wegovy 0.5 MG/0.5ML Solution Auto-injector INJECT 0.5 MG SUBCUTANEOUSLY WEEKLY Subcutaneous Not-Taking/PRNTriamterene-HCTZ 37.5-25 MG Tablet 1 tablet Orally one every other day Celecoxib 100 MG Capsule TAKE 1 CAPSULE BY MOUTH EVERY DAY WITH FOOD FOR 30 DAYS Ibuprofen 800 MG Tablet TAKE 1 TABLET BY MOUTH THREE TIMES A DAY WITH FOOD OR MILK NEEDED FOR 30 DAYS Budesonide-Formoterol Fumarate 160-4.5 MCG/ACT Aerosol two puffs Inhalation twice a day Loratadine 10 MG Tablet 1 tablet Orally Once a day Clobetasol Propionate 0.05 % Cream External Medication List reviewed and reconciled with the patientNot-Taking/PRN Triamterene-HCTZ 37.5-25 MG Tablet 1 tablet Orally one every other day Not-Taking/PRN Celecoxib 100 MG Capsule TAKE 1 CAPSULE BY MOUTH EVERY DAY WITH FOOD FOR 30 DAYS Not-Taking/PRN Ibuprofen 800 MG Tablet TAKE 1 TABLET BY MOUTH THREE TIMES A DAY WITH FOOD OR MILK NEEDED FOR 30 DAYS Not-Taking/PRN Budesonide-Formoterol Fumarate 160-4.5 MCG/ACT Aerosol two puffs Inhalation twice a day Not-Taking/PRN Loratadine 10 MG Tablet 1 tablet Orally Once a day Not-Taking/PRN Clobetasol Propionate 0.05 % Cream External Medication List reviewed and reconciled with the patient * Allergies: P ercocetNo Known Food Allergyno[Allergies Verified] Objective: * Vitals: H t: 72, Wt: 246, BMI:33.36, BP: 136/74, HR: 84, Temp: 98.2, Wt-k.58. * P ast Orders: L ab:Lipid Panel (Order Date - 06/22/2025) (Collection Date & Time - 06/22/2025 09:45 AM) Value Reference Range Triglycerides 63 <150 - mg/dL Cholesterol 173 <200 - mg/dL LDL Cholesterol Calculated 101 H <100 - mg/dL HDL Cholesterol 60 >40 - mg/dL L ab:Comprehensive [place]. Panel Fast (Order Date - 06/22/2025) (Collection Date & Time - 06/22/2025 09:45 AM) Value Reference Range Sodium 139 135-145 - mmol/L Bilirubin Total 0.6 0.0-1.0 - mg/dL Aspartate Amino Transferase 29 5-31 - U/L Alanine Aminotransferase 31 0-31 - U/L Total Protein 6.7 6.5-8.0 - g/dL Albumin Level 3.9 3.5-5.0 - g/dL Alkaline Phosphatase 65 39-117 - U/L Potassium 4.2 3.3-5.1 - mmol/L Chloride 108 96-108 - mmol/L Carbon Dioxide 26 22-29 - mmol/L Anion Gap 9 L 12-20 - Blood Urea Nitrogen 9 9-16 - mg/dL Creatinine 0.78 0.5-1.4 - mg/dL Estimated Glomerular Filt Rate > 60 - Glucose Fasting 79 60-99 - mg/dL Calcium 8.5 8.4-10.2 - mg/dL L ab:Erythrocyte Sedimentation Rate (Order Date - 06/22/2025) (Collection Date & Time - 06/22/2025 09:45 AM) Value Reference Range Erythrocyte Sedimentation Rate 10 0-20 - MM /HR L ab:Complete Blood Count Auto Diff (Order Date - 06/22/2025) (Collection Date & Time - 06/22/2025 09:45 AM) Value Reference Range White Blood Count 4.0 L 4.8-10.8 - X10*3/uL Red Blood Count 4.33 4.20-5.50 - X10*6/uL Hemoglobin 12.7 12.0-16.0 - g/dl Hematocrit 37.3 37.0-47.0 - % Mean Corpuscular Volume 86.1 80.0-98.0 - fL Mean Corpuscular Hemoglobin 29.3 27.0-33.0 - pg Mean Corpuscular HGB Conc 34.0 31.0-35.0 - g/ dl Red Cell Distribution Width 12.5 11.0-16.0 - % Platelet Count 199 160-400 - X10*3/uL Mean Platelet Volume 12.2 9.4-12.3 - fL Neutrophils Percent Auto 43.3 L 45-73 - % Imm Gran Pct Auto 0.2 0.0-0.4 - % Lymphocytes Percent Auto 37.9 20-40 - % Monocytes Percent Auto 12.9 H 2-11 - % Eosinophils Percent Auto 4.7 H 0-4 - % Basophils Percent Auto 1.0 0-2 - % NRBC Pct Auto 0.0 0.0-0.2 - /100WBC Neutrophils Absolute Auto 1.8 L 2.0-8.3 - x10* 3/uL Imm Gran Abs Auto 0.01 0.00-0.03 - X10*3/uL Lymphocytes Absolute Auto 1.5 1.2-4.9 - X10* 3/uL Monocytes Absolute Auto 0.5 0.1-1.2 - X10*3/ uL Eosinophils Absolute Auto 0.2 0.0-0.4 - X10* 3/uL Basophils Absolute Auto 0.0 0.0-0.2 - X10*3/ uL NRBC Abs Auto 0.000 0.0-0.012 - X10*3/uL L ab:Thyroid Stimulating Hormone (Order Date - 06/22/2025) (Collection Date & Time - 06/22/2025 09:45 AM) Value Reference Range Thyroid Stimulating Hormone 0.50 0.32-4.0 - u IU/mL L ab:Free T4 (Free Thyroxine) (Order Date - 06/22/2025) (Collection Date & Time - 06/22/2025 09:45 AM) Value Reference Range Free T4 (Free Thyroxine) 0.94 0.71-1.85 - ng/ dL * Examination: G eneral Examination: GENERAL APPEARANCE: p leasant, well nourished, well developed, in no acute distress, calm and relaxed. HEAD: a traumatic, normocephalic. EYES: e darwin, [...] lear to auscultation . BREASTS: N ot examined, Done by ULTRASOUND TECHNOLOGIST. ABDOMEN: b owel sounds normal, no ascites, no organomegaly, no mass. RECTAL EXAM: n ot examined. MUSCULOSKELETAL: e xtremities unremarkable, no clubbing, cyanosis or edema, No abnormality seen in the left by. PERIPHERAL PULSES: n ormal. NEUROLOGIC: a lert and oriented, cranial nerves 2-12 grossly intact, deep tendon reflexes 2+ symmetrical, motor strength normal upper and lower extremities, sensory exam intact. PSYCH: a lert, oriented. Assessment: * Assessment: 1. O besity - E66.9 (Primary) N otes :He has lost 6 pounds through diet and exercise. Her body mass index is 33.36. She will continue to lose weight at a rate of 1 pound per week. 2 . I melida deficiency anemia due to chronic blood loss - D50.0 N otes :He was continued on her iron supplementation. 3 . D epressive disorder, not elsewhere classified - F32.9 N otes :She continues on psychotherapy and on the antidepressant. She is not suicidal. We reviewed weight loss strategies. She will be seen frequently. 4 . N ontoxic multinodular goiter - E04.2 N otes :Her asw specialist has made no change in her therapy. She is feeling healthy well at this time. 5 . M ild intermittent asthma without complication - J45.20 N otes :Her lungs were clear today and she was breathing without difficulty. Use her medications as prescribed if she has return of thhe asthma. I have asked her to notify me if this occurs. 6 . I nsomnia due to medical condition - G47.01 N otes :She is sleeping well lately and has a little trouble with this problem. 7 . H ypothyroidism, unspecified - E03.9 N otes :She is clinically euthyroid. She has been compliant with her medication. No changes in her therapy was necessary. Comprehensive blood work will thyroid function test was ordered today. 8 . S leep apnea, unspecified - G47.30 N otes :She is doing well with the CPAP machine and no adjustment was necessary. Plan: * Treatment: 2. I melida deficiency anemia due to chronic blood loss L AB: PROFILE, FASTING (COMPREHENSIVE METABOLIC) L AB: CBC w DIFF L AB: Ferritin L AB: Lipid Panel 3. O thers Continue predniSONE Tablet, 20 MG, 2 tablets, Orally, Once a day, Notes to Pharmacist: J45.41 Moderate persistent asthmatic bronchitis with acute exacerbation; C ontinue Albuterol Sulfate HFA Aerosol Solution, 108 (90 Base) MCG/ACT, 1 puff as needed, Inhalation, every 4 hrs, Notes to Pharmacist: J45.41 Moderate persistent asthmatic bronchitis with acute exacerbation; C ontinue Wegovy Solution Auto-injector, 0.5 MG/0.5ML, INJECT 0.5 MG SUBCUTANEOUSLY WEEKLY, Subcutaneous. ? Referral To:PAMELLA LINCOLN Orthopedic Surgery Reason:Evaluate and Treat Left hip Pain Had hip replacement in 2019 * Procedure Codes: * Preventive Medicine: Counseling: [...] reason not done * Follow Up: 4 Months (Reason: OV) * Images: * Sign off status: Completed true * Provider: Doug Saravia MD Date: Generated for Tabby lau/Alexandra/eTransmitting on: 11:32 AM EST History and Physical Notes * HPI (History of Present Illness) Category Sub-Category Detail Notes Depression Screening PHQ-9 Little inte rest or pleasure in doing things: Not at all Feeling down, depressed, or hopeless: Mo re than half the days Trouble falling or staying asleep, or sl eeping too much: Nearly every day Feeling tired or having little energy: N ot at all Poor appetite or overeating: Not at all Feeling bad about yourself o r that you are a failure, or have let yourself or your family down: Not at all Trouble concentrating on thi ngs, such as reading the newspaper or watching television: Not at all Moving or speaking so slowly that other people could have noticed; or the opposite, being so fidgety or restless that you have been moving around a lot more than usual: Not at all Thoughts that you would be b lalo off or of hurting yourself in some way: Not at all Total Score: 5 Interpretation: Mild Depression Interpretation and Intervention Depression Fidel colbert Findings: Positive Suicide Risk Assessment Performed: 09/16 COVID-19 Screening Questions Have you had any new onset fever, chills, cough, congestion, sore throat, shortness of breath, muscle aches?: No Examination Category Sub-Category Detail Notes General Examination GENERAL APPEARANCE: pleasant , well nourished, well developed, in no acute distress, calm and relaxed HEAD: atraumatic, normocep halic EYES: eomi, perrla, anicte smitha, conjugate EARS: normal NOSE: septum intact NECK/THYROID: no jugular venous di stention, no carotid bruit, thyroid normal HEART: no clicks, gallops, murmurs, or rubs, regular rhythm, S1, S2 normal, no s3, or vascular bruits LUNGS: clear to auscultatio n ABDOMEN: bowel sounds normal, no ascites, no organomegaly, no mass NEUROLOGIC: alert and oriented, cranial nerves 2-12 grossly intact, deep tendon reflexes 2+ symmetrical, motor strength normal upper and lower extremities, sensory exam intact SKIN: no suspicious lesion s, anicteric PERIPHERAL PULSES: normal BREASTS: Not examined, Done b y ULTRASOUND TECHNOLOGIST MUSCULOSKELETAL: extremities unremark able, no clubbing, cyanosis or edema, No abnormality seen in the left by LYMPH NODES: no enlarged lymph no abdelrahman,spleen normal RECTAL EXAM: not examined PSYCH: alert, oriented ORAL CAVITY: normal, unremarkable Consultation Request Notes Referral Date Referring Provider Referred Provider Jero beltran 09/16/2025 Payam Saravia NOAH Evaluate and Treat Left hip Pain Had hip replacement in 2019
--- OUTSIDE RECORDS SUMMARY | 2025-10-05 05:45 | XMS_ITS ---
Author Organization [facility] [address] Address [address] [place] [address] Care Team Providers Care Radar Technician Name Role Phone Chikis Swartz Unavailable [phone] THUAN ONEIL Unavailable [phone] Medications Medication SIG (Take, Route, Frequency, Duration) Notes Start Date End Date Status predniSONE 10 MG Tablet 1 tablet Orally Once a day PRN Active ProAir HFA PRN Active Ondansetron 4 MG Tablet Disintegrating 1 tablet on the tongue and allow to dissolve prn nausea/vomiting Orally twice day; Duration: 30 days 08/06/2024 Active Wegovy 1 MG/0.5ML Solution Auto-injector 1mg Subcutaneous weekly; Duration: 30 days 01/29/2025 Active Wegovy 1.7 MG/0.75ML Solution Auto-injector 1.7mg Subcutaneous weekly; Duration: 30 days 10/03/2025 Active Wegovy 1.7 MG/0.75ML Solution Auto-injector INJECT 1 PEN SUBCUTANEOUSLY ONCE WEEKLY; Duration: 28 Active Encounters Encounter Location Date Provider Diagnosis [facility] [address] [place] [phone] 10/05/2025 THUAN ONEIL Other obesity due to excess calories E66.09 ; BMI 34.0-34.9,adult Z68.34 ; Dietary counseling and surveillance Z71.3 ; Prediabetes R73.03 and Encounter for examination of blood pressure without abnormal findings Z01.30 Assessments Encounter Date Diagnosis (ICD Code) Assessment Notes Treatment Notes Treatment Clinical Notes Section Notes 10/05/2025 Other obesity due to excess calories (ICD-10 - E66.09) #Weight Management 10/05/2025 Increase Wegovy to 1.7 mg cont Vit [...] software and direct typing Please excuse inadvertent coal chemist or typing errors, or uncorrected word substitutions Although every attempt has been made by the provider to proofread this document, occasional misspellings and typographical errors may still be present Due to the previous pandemic, and the use of personal protective equipment (PPE) This may decrease voice recognition accuracy Inadvertent coal chemist errors may occur 10/05/2025 BMI 34.0-34.9,adult (ICD-10 - Z68.34) #Weight Management 10/05/2025 Increase Wegovy to 1.7 mg cont Vit [...] software and direct typing Please excuse inadvertent coal chemist or typing errors, or uncorrected word substitutions Although every attempt has been made by the provider to proofread this document, occasional misspellings and typographical errors may still be present Due to the previous pandemic, and the use of personal protective equipment (PPE) This may decrease voice recognition accuracy Inadvertent coal chemist errors may occur 10/05/2025 Dietary counseling and surveillance (ICD-10 - Z71.3) #Weight Management 10/05/2025 Increase Wegovy to 1.7 mg cont Vit [...] software and direct typing Please excuse inadvertent coal chemist or typing errors, or uncorrected word substitutions Although every attempt has been made by the provider to proofread this document, occasional misspellings and typographical errors may still be present Due to the previous pandemic, and the use of personal protective equipment (PPE) This may decrease voice recognition accuracy Inadvertent coal chemist errors may occur 10/05/2025 Prediabetes (ICD-10 - R73.03) #Weight Management 10/05/2025 Increase Wegovy to 1.7 mg cont Vit [...] software and direct typing Please excuse inadvertent coal chemist or typing errors, or uncorrected word substitutions Although every attempt has been made by the provider to proofread this document, occasional misspellings and typographical errors may still be present Due to the previous pandemic, and the use of personal protective equipment (PPE) This may decrease voice recognition accuracy Inadvertent coal chemist errors may occur 10/05/2025 Encounter for examination of blood pressure without abnormal findings (ICD-10 - Z01.30) #Weight Management 10/05/2025 Increase Wegovy to 1.7 mg cont Vit [...] software and direct typing Please excuse inadvertent coal chemist or typing errors, or uncorrected word substitutions Although every attempt has been made by the provider to proofread this document, occasional misspellings and typographical errors may still be present Due to the previous pandemic, and the use of personal protective equipment (PPE) This may decrease voice recognition accuracy Inadvertent coal chemist errors may occur Plan Of Treatment Medication Medication Name Sig Start Date Stop Date Notes Wegovy 1.7 MG/0.75ML Solution Auto-injector 1.7mg Subcutaneous weekly; Duration: 30 days 10/03/2025 Next Appt Details Provider Name:THUAN ONEIL, 11/26/2025 09:15:00 AM, [address], [place], [phone], History and Physical Notes * HPI (History of Present Illness) Category Sub-Category Detail Notes Category Not es Constitutional Patient is here today for a weight management f/u visit Patient seen and examined. Full past medical history, social history, family history, allergies and current medications were reviewed and updated. Body composition analysis reviewed today #Weight Management 10/05/2025 24-hour dietary recall Breakfast: Lunch: Dinner: Snacking: [...] IBS modified diet significantly Gastric Sleeve at [facility] Dr. Franks 2014 Thyroid nodules evaluated, benign, Dr. Muro , Underwent FNA and ultrasound Exercise: Currently walks at work + x3 days/wk for 30-40 min; no weight lifting Non-smoker ETOH use: socially PCP Dr. 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 [employer] Highest weight: 320lbs Lowest weight: 220 lbs Goal weight: 220 lbs MISTI screening/STOP-BANG/[place], evaluated in 2014 at [facility], negative Comprehensive labs October 2024 TSH 1.49 CBC stable Vitamin D 9* total cholesterol 213, LDL 123, triglycerides 92, HDL 74 Renal function electrolytes LFTs are stable Hemoglobin A1c prediabetic at 5.8 Examination Category Sub-Category Detail Notes Category Not es General Examination GENERAL APPEARANCE: in no ac king salmon distress, well developed, well nourished HEAD: normocephalic, [...] Notes * Donya HOSKINSDOB:1970 (55 yo F)Acc No.[id number]:10/05/2025 Patient: Flo dylanAdrianneDonya Provider: Stanford ONEIL NP :1970 A ge:55 Y S ex:Female Date:10/05/2025 Address:[address] [place] [address] Subjective: * Chief Complaints: * HPI: C onstitutional: Patient is here today for a weight management f/u visit Patient seen and examined. Full past medical history, social history, family history, allergies and current medications were reviewed and updated. Body composition analysis reviewed today #Weight Management 10/05/2025 24-hour dietary recall Breakfast: Lunch: Dinner: Snacking: [...] IBS modified diet significantly Gastric Sleeve at [facility] Dr. Tiny 2015 Thyroid nodules evaluated, benign, Dr. Muro , Underwent FNA and ultrasound Exercise: Currently walks at work + x3 days/wk for 30-40 min; no weight lifting Non-smoker ETOH use: socially PCP Dr. 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 * ROS: A ll Other Systems: Review [...] to Pharmacist: PRNWegovy 1.7 MG/0.75ML Solution Auto-injector INJECT 1 PEN SUBCUTANEOUSLY ONCE WEEKLY Taking Wegovy 1 MG/0.5ML Solution Auto-injector 1mg Subcutaneous weekly Taking Ondansetron 4 MG Tablet Disintegrating 1 tablet on the tongue and allow to dissolve prn nausea/vomiting Orally twice day Taking predniSONE 10 MG Tablet 1 tablet Orally Once a day , Notes to Pharmacist: PRNTaking ProAir HFA , Notes to Pharmacist: PRNTaking Wegovy 1.7 MG/0.75ML Solution Auto-injector INJECT 1 PEN SUBCUTANEOUSLY ONCE WEEKLY Objective: * Examination: G eneral Examination: GENERAL [...] calories - E66.09 (Primary) 2 . B NM 34.0-34.9,adult - Z68.34 3 . D ietary counseling and surveillance - Z71.3 ?4. P rediabetes - R73.03 5 . E ncounter for examination of blood pressure without abnormal findings - Z01.30 #Weight Management 10/05/2025 Increase Wegovy to 1.7 mg cont Vit [...] software and direct typing Please excuse inadvertent coal chemist or typing errors, or uncorrected word substitutions Although every attempt has been made by the provider to proofread this document, occasional misspellings and typographical errors may still be present Due to the previous pandemic, and the use of personal protective equipment (PPE) This may decrease voice recognition accuracy Inadvertent coal chemist errors may occur Plan: * Treatment: * Electronic signature of NICO ONEIL on 11/23/2025 at 11:34 AM EST Sign off status: Pending * Provider: Stanford ONEIL NP Date: 12/05/2024 Generated for Tabby lau/Alexandra/Tuckersmitting on: 1 11:34 AM EST
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
--- OUTSIDE RECORDS SUMMARY | 2025-11-23 11:33 | XMS_ITS | Patient Health Record ---
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 Payam Saravia III Primary Care Provider Allergies Allergen (clinical drug ingredient) Drug/Non Drug Allergy documented on EMR Reaction Allergy Type Onset Date Status No Known Food Allergy Unknown Drug Allergy Active acetaminophen / oxycodone Percocet Unknown Drug Allergy Active Results Component Value Reference Range Notes MAMMOGRAM DIGITAL BILATERAL SCREEN Reviewed date:09/16/2025 03:09:27 PM Interpretation:undefined Performing Lab: Notes/Report: undefined Complete Blood Count Auto Di ff Reviewed date:09/05/2025 09:34:03 AM Interpretation: Performing Lab:[facility], [address] [place] [phone] Notes/Report: White Blood Count 4.0 4.8-10.8 X10*3/uL Red Blood Count 4.33 4.20-5.50 X10*6/uL Hemoglobin 12.7 12.0-16.0 g/dl Hematocrit 37.3 37.0-47.0 % Mean Corpuscular Volume 86.1 80.0-98.0 fL Mean Corpuscular Hemoglobin 29.3 27.0-33.0 pg Mean Corpuscular HGB Conc 34.0 31.0-35.0 g/dl Red Cell Distribution Width 12.5 11.0-16.0 % Platelet Count 199 160-400 X10*3/uL Mean Platelet Volume 12.2 9.4-12.3 fL Neutrophils Percent Auto 43.3 45-73 % Imm Gran Pct Auto 0.2 0.0-0.4 % Lymphocytes Percent Auto 37.9 20-40 % Monocytes Percent Auto 12.9 2-11 % Eosinophils Percent Auto 4.7 0-4 % Basophils Percent Auto 1.0 0-2 % NRBC Pct Auto 0.0 0.0-0.2 /100WBC Neutrophils Absolute Auto 1.8 2.0-8.3 x10*3/u L Imm Gran Abs Auto 0.01 0.00-0.03 X10*3/uL Lymphocytes Absolute Auto 1.5 1.2-4.9 X10*3/u L Monocytes Absolute Auto 0.5 0.1-1.2 X10*3/uL Eosinophils Absolute Auto 0.2 0.0-0.4 X10*3/u L Basophils Absolute Auto 0.0 0.0-0.2 X10*3/uL NRBC Abs Auto 0.000 0.0-0.012 X10*3/uL Erythrocyte Sedimentation Ra te Reviewed date:09/05/2025 09:34:03 AM Interpretation: Performing Lab:[facility], [address] [place] [phone] Notes/Report: Erythrocyte Sedimentation Rate 10 0-20 MM/HR Patients with polycythemia and many hemoglobin abnormalities may have depressed sed rates whereas patients with anemia may have elevated sed rates. Comprehensive Wall. Panel Fa st Reviewed date:09/05/2025 09:34:03 AM Interpretation: Performing Lab:[facility], [address] [place] [phone] Notes/Report: Sodium 139 135-145 mmol/L Potassium 4.2 3.3-5.1 mmol/L Chloride 108 96-108 mmol/L Carbon Dioxide 26 22-29 mmol/L Anion Gap 9 12-20 Blood Urea Nitrogen 9 9-16 mg/dL Creatinine 0.78 0.5-1.4 mg/dL Estimated Glomerular Filt Rate > 60 Chronic Kidney Disease: Estimated GFR < 60 mL/min/1.73m2 Severe Kidney Disease: Estimated GFR < 15 mL/min/1.73m2 Glucose Fasting 79 60-99 mg/dL Calcium 8.5 8.4-10.2 mg/dL Bilirubin Total 0.6 0.0-1.0 mg/dL Aspartate Amino Transferase 29 5-31 U/L Alanine Aminotransferase 31 0-31 U/L Total Protein 6.7 6.5-8.0 g/dL Albumin Level 3.9 3.5-5.0 g/dL Alkaline Phosphatase 65 39-117 U/L Lipid Panel Reviewed date:09/05/2025 09:34:03 AM Interpretation: Performing Lab:[address] [phone] Notes/Report: Triglycerides 63 <150 mg/dL Desirable Triglyceride: less than 150 mg/dL Borderline High Triglyceride 150-199 mg/dL High Triglyceride: 200-499 mg/dL Very High Triglyceride: greater than or equal to 5OO mg/dL Cholesterol 173 <200 mg/dL Desirable Cholesterol: less than 200 mg/dL Borderline High Cholesterol: 200-239 mg/dL High Cholesterol: greater than 239 mg/dL LDL Cholesterol Calculated 101 <100 mg/dL Desirable LDL: less than 100 mg/dL Near Optimal/Above Optimal LDL: 110-129 mg/dL Borderline High LDL: 130-159 mg/dL High LDL: 160-189 mg/dL Very High LDL: greater than or equal to 190 mg/dL HDL Cholesterol 60 >40 mg/dL Desirable HDL: greater than 40 mg/dL Note: This HDL assay may give artificially low results in patients with liver disease. Free T4 (Free Thyroxine) Reviewed date:09/05/2025 09:34:03 AM Interpretation: Performing Lab:[address] [phone] Notes/Report: Free T4 (Free Thyroxine) 0.94 0.71-1.85 ng/dL Thyroid Stimulating Hormone Reviewed date:09/05/2025 09:34:03 AM Interpretation: Performing Lab:[address] [phone] Notes/Report: Thyroid Stimulating Hormone 0.50 0.32-4.0 uIU/ mL TSH 3rd Generation ([facility]) Reason For Referral Reason Evaluate and Treat [...] and schedule an appointment. Referral Priority Routine Medications Medication SIG (Take, Route, Frequency, Duration) Notes Start Date End Date Status Loratadine 10 MG 1 tablet Orally Once a day 03/12/2024 Active Triamterene-HCTZ 37.5-25 MG 1 tablet Orally one every other day 12/23/2023 Active Fluconazole 100 MG TAKE 1 TABLET BY MOUTH EVERY DAY FOR 2 DAYS for 2 Active predniSONE 20 MG TAKE 2 TABLETS BY MOUTH DAILY FOR 10 DAYS for 10 Active Albuterol Sulfate HFA 108 (90 Base) MCG/ACT 1 puff as needed Inhalation every 4 hrs J45.41 Moderate persistent asthmatic bronchitis with acute exacerbation 08/20/2024 Active ProAir HFA 108 (90 Base) MCG/ACT [...] puffs Inhalation twice a day 02/10/2024 Active Clobetasol Propionate 0.05 % APPLY TO AFFECTED AREA TWICE A DAY FOR 10 DAYS for 14 Active Immunizations Vaccine Route Administration Date Status Comme nts Td (adult) IM Intramuscular 01/04/2013 Administered Influenza, quad Unknown 09/23/2022 Administered Tdap Unknown 06/22/2021 Administered COVID PFIZER Unknown 02/19/2021 Administered COVID PFIZER Unknown 01/29/2021 Administered Social History Tobacco Use: Social History Observation [...] ast year? No Points 0 Interpretation Negative Problems Problem Type SNOMED Code ICD Code Onset Dates Problem Status W/U Status Risk Notes Problem 840361582 Obesity (E66.9) Active confirmed He has lost 6 pounds through diet and exercise. Her body mass index is 33.36. She will continue to lose weight at a rate of 1 pound per week. Problem Hypothyroidism (82028760) Hypothyroidis m, unspecified (E03.9) Active confirmed She is clinically euthyroid. She has been compliant with her medication. No changes in her therapy was necessary. Comprehensive blood work will thyroid function test was ordered today. 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 She is feeling healthy well at this time. Problem 94618413 Insomnia due to medical condition (G47.01) Active confirmed She is sleeping well lately and has a little trouble with this problem. Problem 49271157 Sleep apnea, unspecified (G47.30) Active confirmed She is doing well with the CPAP machine and no adjustment was necessary. Problem 798581311 Mild intermittent asthma without complication (J45.20) Active confirmed Her lungs were clear today and she was breathing without difficulty. Use her medications as prescribed if she has return of thhe asthma. I have asked her to notify me if this occurs. Problem 196619712 Iron deficiency anemia due to chronic blood loss (D50.0) Active confirmed He was continue d on her iron supplementation. Problem 71860495 Depressive disorder, not elsewhere classified (F32.9) Active confirmed She continues o n psychotherapy and on the antidepressant. She is not suicidal. We reviewed weight loss strategies. She will be seen frequently. Problem [id number] Arthritis of both knees (M17.0) Active confirmed Her knee pain i s mild she is able to work. Is mostly related to weightbearing. Problem 272493110 Acute pneumonia (J18.9) Active confirmed She will finish the antibiotic tomorrow she is afebrile and the cough is diminished and nonproductive. I have ordered a chest x-ray and comprehensive blood work. She was breathing comfortably on room air. Problem 163919571 Frequent headaches (R51.9) Active confirmed The meloxicam i s helping the headaches seem to be improving. Observation for 7 more days was recommended. Vital Signs Heart Rate 84 /min 09/16/2025 Temperature 98.2 degrees Fahrenheit 09/16/2025 Blood pressure diastolic 74 mm Hg 09/16/2025 Height 72 in 09/16/2025 Blood pressure systolic 136 mm Hg 09/16/2025 Weight 246 lbs 09/16/2025 BMI 33.36 kg/m2 09/16/2025 Encounters Encounter Location Date Provider Diagnosis Payam Saravia III, MD [address] [place] [address] [place] [phone] 01/26/2025 Payam Saravia Obesity E66.9 ; Mild intermittent asthma without complication J45.20 ; Nontoxic multinodular goiter E04.2 ; Depressive disorder, not elsewhere classified F32.9 ; Insomnia due to medical condition G47.01 and Trochanteric bursitis of left hip M70.62 Payam Saravia III, MD [address] [place] [address] [place] [phone] 02/16/2025 Payam Saravia Obesity E66.9 ; Insomnia due to medical condition G47.01 ; Depressive disorder, not elsewhere classified F32.9 and Hypothyroidism, unspecified E03.9 Payam Saravia III, MD [address] [place] [address] [place] [phone] 02/28/2025 Payam Saravia Acute pharyngitis, unspecified etiology J02.9 ; Depressive disorder, not elsewhere classified F32.9 ; Nontoxic multinodular goiter E04.2 ; Mild intermittent asthma without complication J45.20 ; Insomnia due to medical condition G47.01 ; Obesity E66.9 ; Iron deficiency anemia due to chronic blood loss D50.0 ; Arthritis of both knees M17.0 and Hypothyroidism, unspecified E03.9 Payam Saravia III, MD [address] [place] [address] [place] [address] 03/23/2025 Payam Saravia Acute gastritis without hemorrhage, unspecified gastritis type K29.00 ; Nontoxic multinodular goiter E04.2 ; Depressive disorder, not elsewhere classified F32.9 ; Insomnia due to medical condition G47.01 and Obesity E66.9 Paaym Saravia III, MD [address] [place] [address] [place] [phone] 03/30/2025 Payam Saravia Obesity E66.9 ; Nontoxic multinodular goiter E04.2 ; Depressive disorder, not elsewhere classified F32.9 and Mild intermittent asthma without complication J45.20 Payam Saravia III, MD [address] [place] [address] [place] [phone] 06/22/2025 Payam Saravia Obesity E66.9 ; Frequent headaches R51.9 ; Depressive disorder, not elsewhere classified F32.9 ; Sleep apnea, unspecified G47.30 ; Mild intermittent asthma without complication J45.20 ; Nontoxic multinodular goiter E04.2 and Type 2 diabetes mellitus without complication, without long-term current use of insulin E11.9 Payam Saravia III, MD [address] [place] [address] [place] [address] 06/29/2025 Payam Saravia Frequent headaches R51.9 ; Obesity E66.9 ; Sleep apnea, unspecified G47.30 ; Mild intermittent asthma without complication J45.20 ; Nontoxic multinodular goiter E04.2 and Hypothyroidism, unspecified E03.9 Payam Saravia III, MD [address] [place] [address] [place] [address] 09/16/2025 Payam Saravia Obesity E66.9 ; Iron deficiency anemia due to chronic blood loss D50.0 ; Depressive disorder, not elsewhere classified F32.9 ; Nontoxic multinodular goiter E04.2 ; Mild intermittent asthma without complication J45.20 ; Insomnia due to medical condition G47.01 ; Hypothyroidism, unspecified E03.9 and Sleep apnea, unspecified G47.30 Payam Saravia III, MD [address] [place] [address] [place] [phone] 01/28/2025 Payam Saravia III, MD [address] [place] [address] [place] [phone] 02/01/2025 Payam Saravia III, MD [address] [place] [address] [place] [phone] 02/08/2025 Payam Saravia III, MD [address] [place] [address] [place] [phone] 09/07/2025 Payam Saravia Assessments Encounter Date Diagnosis (ICD Code) Assessment Notes Treatment Notes Treatment Clinical Notes 01/26/2025 Obesity (ICD-10 - E66.9) She has lost 3 pounds. She will continue on the Wegovy in the weight loss program.He followed at monthly intervals. 01/26/2025 Mild intermittent asthma without complication (ICD-10 - J45.20) Her lungs were clear today and she was breathing without difficulty. Use her medications as prescribed if she has return of thhe asthma. I have asked her to notify me if this occurs. 02/16/2025 Obesity (ICD-10 - E66.9) She has lost 4 pounds. She will continue on the Wegovy in the weight loss program.He followed at monthly intervals.She will continue the Zepbound 02/16/2025 Insomnia due to medical condition (ICD-10 - G47.01) She is sleeping well lately and has a little trouble with this problem. 02/28/2025 Acute pharyngitis, unspecified etiology (ICD-10 - J02.9) She was given a prescription for Augmentin in case of strep. In the event that she has a urinary tract infection. A followup was arranged. If necessary, or throat will be cultured along with her urine. 03/23/2025 Nontoxic multinodular goiter (ICD-10 - E04.2) Her environmental project manager has made no change in her therapy. She is feeling healthy well at this time. 03/23/2025 Acute gastritis without hemorrhage, unspecified gastritis type (ICD-10 - K29.00) She declined prescription medications. We decided she would do her most to reduce the stress in her life and rinsed in a healthy diet and get enough sleep. She will continue on her current medication. Follow-up was arranged in one week. 03/30/2025 Obesity (ICD-10 - E66.9) She has lost 5 more pounds. She will continue on the zepbound in the weight loss program and be followed at monthly intervals.She will continue the same dose. 03/30/2025 Nontoxic multinodular goiter (ICD-10 - E04.2) Her environmental project manager has made no change in her therapy. She is feeling healthy well at this time. 06/22/2025 Obesity (ICD-10 - E66.9) She has lost 2 pounds since her last visit and 7 pounds since February 2025. We reviewed her diet and nutrition in her plan to lose weight. 06/22/2025 Frequent headaches (ICD-10 - R51.9) Given her meloxicam and discussed propranolol compensated blood work has been ordered. 06/29/2025 Obesity (ICD-10 - E66.9) She has lost 2 pounds since her last visit and 7 pounds since February 2025. We reviewed her diet and nutrition in her plan to lose weight. 06/29/2025 Frequent headaches (ICD-10 - R51.9) The meloxicam is helping the headaches seem to be improving. Observation for 7 more days was recommended. 09/16/2025 Obesity (ICD-10 - E66.9) He has lost 6 pounds through diet and exercise. Her body mass index is 33.36. She will continue to lose weight at a rate of 1 pound per week. 09/16/2025 Iron deficiency anemia due to chronic blood loss (ICD-10 - D50.0) He was continued on her iron supplementation. 01/26/2025 Nontoxic multinodular goiter (ICD-10 - E04.2) Her environmental project manager has made no change in her therapy. She is feeling healthy well at this time. 02/16/2025 Depressive disorder, not elsewhere classified (ICD-10 - F32.9) She continues on psychotherapy and on the antidepressant. She is not suicidal. We reviewed weight loss strategies. She will be seen frequently. 02/28/2025 Depressive disorder, not elsewhere classified (ICD-10 - F32.9) She continues on psychotherapy and on the antidepressant. She is not suicidal. We reviewed weight loss strategies. She will be seen frequently. 03/23/2025 Depressive disorder, not elsewhere classified (ICD-10 - F32.9) She continues on psychotherapy and on the antidepressant. She is not suicidal. We reviewed weight loss strategies. She will be seen frequently. 03/30/2025 Depressive disorder, not elsewhere classified (ICD-10 - F32.9) She continues on psychotherapy and on the antidepressant. She is not suicidal. We reviewed weight loss strategies. She will be seen frequently. 06/22/2025 Depressive disorder, not elsewhere classified (ICD-10 - F32.9) She continues on psychotherapy and on the antidepressant. She is not suicidal. We reviewed weight loss strategies. She will be seen frequently. 06/29/2025 Sleep apnea, unspecified (ICD-10 - G47.30) She is doing well with the CPAP machine and no adjustment was necessary. 09/16/2025 Depressive disorder, not elsewhere classified (ICD-10 - F32.9) She continues on psychotherapy and on the antidepressant. She is not suicidal. We reviewed weight loss strategies. She will be seen frequently. 01/26/2025 Depressive disorder, not elsewhere classified (ICD-10 - [...] will thyroid function test was ordered today. 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 She is feeling healthy well at this time. 03/23/2025 Insomnia due to medical condition (ICD-10 - G47.01) She is sleeping well lately and has a little trouble with this problem. 03/30/2025 Mild intermittent asthma without complication (ICD-10 - J45.20) Her lungs were clear today and she was breathing without difficulty. Use her medications as prescribed if she has return of thhe asthma. I have asked her to notify me if this occurs. 06/22/2025 Sleep apnea, unspecified (ICD-10 - G47.30) She is doing well with the CPAP machine and no adjustment was necessary. 06/29/2025 Mild intermittent asthma without complication (ICD-10 - J45.20) Her lungs were clear today and she was breathing without difficulty. Use her medications as prescribed if she has return of thhe asthma. I have asked her to notify me if this occurs. 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 She is feeling healthy well at this time. 01/26/2025 Insomnia due to medical condition (ICD-10 - G47.01) She is sleeping well lately and has a little trouble with this problem. 02/28/2025 Mild intermittent asthma without complication (ICD-10 - J45.20) Her lungs were clear today and she was breathing without difficulty. Use her medications as prescribed if she has return of thhe asthma. I have asked her to notify me if this occurs. 03/23/2025 Obesity (ICD-10 - E66.9) She has lost 4 pounds. She will continue on the Wegovy in the weight loss program.He followed at monthly intervals.She will continue the Zepbound 06/22/2025 Mild intermittent asthma without complication (ICD-10 - J45.20) Her lungs were clear today and she was breathing without difficulty. Use her medications as prescribed if she has return of thhe asthma. I have asked her to notify me if this occurs. 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 She is feeling healthy well at this time. 09/16/2025 Mild intermittent asthma without complication (ICD-10 - J45.20) Her lungs were clear today and she was breathing without difficulty. Use her medications as prescribed if she has return of thhe asthma. I have asked her to notify me if this occurs. 01/26/2025 Trochanteric bursitis of left hip (ICD-10 - M70.62) This has resolved. 02/28/2025 Insomnia due to medical condition (ICD-10 - G47.01) She is sleeping well lately and has a little trouble with this problem. 06/22/2025 Nontoxic multinodular goiter (ICD-10 - E04.2) Her environmental project manager has made no change in her therapy. She is feeling healthy well at this time. 06/29/2025 Hypothyroidism, unspecified (ICD-10 - E03.9) She is clinically euthyroid. She has been compliant with her medication. No changes in her therapy was necessary. Comprehensive blood work will thyroid function test was ordered today. 09/16/2025 Insomnia due to medical condition (ICD-10 - G47.01) She is sleeping well lately and has a little trouble with this problem. 02/28/2025 Obesity (ICD-10 - E66.9) She has lost 4 pounds. She will continue on the Wegovy in the weight loss program.He followed at monthly intervals.She will continue the Zepbound 06/22/2025 Type 2 diabetes mellitus without complication, without long-term current use of insulin (ICD-10 - E11.9) 09/16/2025 Hypothyroidism, unspecified (ICD-10 - E03.9) She is clinically euthyroid. She has been compliant with her medication. No changes in her therapy was necessary. Comprehensive blood work will thyroid function test was ordered today. 02/28/2025 Iron deficiency anemia due to chronic blood loss (ICD-10 - D50.0) She was continued on current therapy.I have added Advair maintenance inhaler. 09/16/2025 Sleep apnea, unspecified (ICD-10 - G47.30) She is doing well with the CPAP machine and no adjustment was necessary. 02/28/2025 Arthritis of both knees (ICD-10 - M17.0) Her knee pain is mild she is able to work. Is mostly related to weightbearing. 02/28/2025 Hypothyroidism, unspecified (ICD-10 - E03.9) She is clinically euthyroid. She has been compliant with her medication. No changes in her therapy was necessary. Comprehensive blood work will thyroid function test was ordered today. Plan Of Treatment Pending Test Test Name Order Date URINE DIP STICK 11/22/2020 EKG 03/18/2018 PROFILE, FASTING (COMPREHENSIVE METABOLI C) 04/26/2022 PROFILE, FASTING (COMPREHENSIVE METABOLI C) 09/10/2024 PROFILE, FASTING (COMPREHENSIVE METABOLI C) 03/18/2018 PROFILE, FASTING (COMPREHENSIVE METABOLI C) 05/18/2021 PROFILE, FASTING (COMPREHENSIVE METABOLI C) 06/22/2025 PROFILE, FASTING (COMPREHENSIVE METABOLI C) 09/16/2025 PROFILE, FASTING (COMPREHENSIVE METABOLI C) 11/19/2019 PROFILE, FASTING (COMPREHENSIVE METABOLI C) 01/26/2025 PROFILE, FASTING (COMPREHENSIVE METABOLI C) 04/29/2023 PROFILE, RANDOM (COMPREHENSIVE METABOLIC ) 04/28/2019 PROFILE, RANDOM (COMPREHENSIVE METABOLIC ) 11/22/2020 ALBUMIN 01/20/2018 LIPID PANEL 04/29/2023 LIPID PANEL 03/18/2018 LIPID PANEL 11/19/2019 FREE T4 (FT4) 03/18/2018 FREE T4 (FT4) 11/22/2020 FREE T4 (FT4) 11/19/2019 TSH (THYROID STIMULATING HORMONE) 2019 TSH (THYROID STIMULATING HORMONE) 2018 TSH (THYROID STIMULATING HORMONE) 2023 TSH (THYROID STIMULATING HORMONE) 2024 TSH (THYROID STIMULATING HORMONE) 2017 FERRITIN 05/18/2021 CBC w DIFF 01/26/2025 CBC w DIFF 01/20/2018 CBC w DIFF 03/18/2018 CBC w DIFF 04/26/2022 CBC w DIFF 04/29/2023 CBC w DIFF 11/19/2019 CBC w DIFF 05/18/2021 CBC w DIFF 09/16/2025 CBC w DIFF 06/22/2025 SED RATE (ESR) 06/22/2025 RETICULOCYTE COUNT,CORRECTED 05/18/2021 URINALYSIS (UA) 09/03/2016 URINALYSIS (UA) 11/19/2016 URINALYSIS - CLEAN CATCH (UA) 09/11/2023 URINALYSIS - CLEAN CATCH (UA) 09/10/2023 URINE BLOOD 07/19/2019 URINE CULTURE 04/09/2018 URINE CULTURE 09/11/2023 URINE CULTURE 11/19/2016 XR CHEST 2 VIEW PA & LAT 05/20/2023 CBC WITH AUTO DIFF 09/10/2024 SARS COV2 RNA RT PCR 10/30/2020 Ferritin 04/26/2022 Ferritin 09/16/2025 Lipid Panel 09/16/2025 Lipid Panel 06/22/2025 Lipid Panel 01/26/2025 Lipid Panel 04/26/2022 Lipid Panel 09/10/2024 Vitamin B12 04/29/2023 Vitamin D 25-OH Total 04/26/2022 Free T4 (Free Thyroxine) 06/22/2025 Urine Culture 09/10/2023 MM screening mammo BI 02/06/2024 Exercise Stress Test 02/06/2024 Next Appt Details Provider Name:Payam Saravia , 01/18/2026 02:00:00 PM, [address] [place] [address] [address], [place], [phone], Provider Name:Payam Saravia , 09/18/2026 03:00:00 PM, [address] [place] [address] [place], [address], Insurance Providers Payer Name Payer Address Payer Phone Subscriber Number Group Number Insured Name Patient Relationship to Insured Coverage Start Date Coverage End Date [facility] [address] [facility] [address] [place] [address] [id number] Donay Hoskins Self - patient is the insured [facility] [address] [place], [place] [id number] [phone] [id number] Donya Hoskins Self - patient is the insured Medical (General) History Medical History History ICD Code multinodular goiter, Dr. Catty depression asthma left breast cyst hemorrhoids DUB/ov. cyst / TL/ [id number] miscarriages 4 laparascopic cholecystectomy plate in right hip/ fractured femur last mammogram 01/26/2013 @ [facility] Oral lesion Surgical History Surgery Date(Month/Year) No history pantoectomy 03/2018 [place] [facility] [place]ization History Reason Date(Month/Year) No history upper endoscopy, Dr. Chacon, [facility] 04/2021
--- OUTSIDE RECORDS SUMMARY | 2025-11-23 11:35 | XMS_ITS | Clinical Summary ---
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 Name Role Phone Unavailable Primary Care Provider [...] Last Done Comments Breast Cancer Screening 1972 Colorectal Cancer Screening: Colonoscopy 1972 DTaP,Tdap,and Td Vaccines (1 - Tdap) 1991 Hepatitis B Vaccines (1 of 3 - 19+ 3-dose series) 1991 Cervical Cancer Screening: P ap Smear 1993 Pneumococcal Vaccine: 50+ Ye ars (1 of 1 - PCV) 2022 Zoster Vaccines (1 of 2) 2022 HIV Screening 10/26/2022 Hepatitis C Screening 10/26/2022 Social Influencers of Health Screening 10/26/2022 Depression Screening 11/24/2024 COVID-19 Vaccine (1 - 2024-2 6 season) 2025 Influenza Vaccine (#1) 2025 RSV Immunization Adult Patie nts (1 - 1-dose 75+ series) 2047 HIB Vaccines Aged Out No longer eligi [...]
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
--- OUTSIDE RECORDS SUMMARY | 2025-11-23 11:35 | XMS_ITS | Clinical Summary ---
Author Organization [facility] Address [address] [place] [phone] Phone Care Team Providers Care Fruit Packer Face And Fill Name Role Phone Payam Saravia MD Primary Care Provider [phone] Allergies Active Allergy Reactions Criticality Noted Date [...] 2022 ZOSTER VACCINES (1 of 2) 2022 INFLUENZA VACCINE (#1) 2025 COVID-19 VACCINE (1 - 2024-2 6 season) 2025 RSV VACCINE (1 - 1-dose 75+ series) 2047 HEPATITIS A VACCINES Aged Out No long [...] topic Medical Devices Not on file Insurance [facility] PPO CIGNA PPO CIGNA PPO CIGNA PPO CIGNA PPO CIGNA PPO Care Teams Fruit Packer Face And Fill Relationship Specialty Start Date End Date Payam Saravia MD [address] [place] [address] [place] [address] PCP - General Medical Oncology 11/07/21 Additional Source Comments The information contained in this document represents components of the legal health record. It is not the complete legal health record.[facility]
== END 2025-11-23 11:25 | disposition home or self-care (01) ==
LOC: HO.HOS 10:23
PROVIDERS: PCP Internal Medicine Medical Oncology; Visit Provider Physician Assistant
DX: M16.51 Unilateral post-traumatic osteoarthritis, right hip (principal)
CPT/HCPCS: 99203

== ENCOUNTER → 2025-11-23 10:24 | Outpatient (BNV) | payer OTHER, SELFPAY | PROVIDERS: Visit Provider Radiology Diagnostic Radiology | DX: M16.11 Unilateral primary osteoarthritis, right hip (principal); D25.9 Leiomyoma of uterus, unspecified; Z96.698 Presence of other orthopedic joint implants | CPT/HCPCS: 73502 ==

== ENCOUNTER 2025-11-23 10:53 | Outpatient (REF) | payer OTHER, SELFPAY ==
--- OUTSIDE RECORDS SUMMARY | 2024-09-11 04:30 | XMS_ITS ---
Author Organization [facility] [address] Address [address] [place] [address] Care Team Providers Care Semiconductor Wafers Etch Operator Name Role Phone Chikis Swartz Unavailable [phone] ARANZA GALINDO Unavailable [phone] REASON FOR VISIT 5 Encounters Encounter Location Date Provider Diagnosis [facility] [address] [address] [place] [address] 09/11/2024 RAANZA GALINDO Plan Of Treatment Next Appt Details Provider Name:THUAN ONEIL, 11/26/2025 09:15:00 AM, [address], [place], [address], Progress Notes * Donya HOSKINSDOB:1970 (55 yo F)Acc No.[id number]:09/11/2024 Patient: Donya Zelaya Provider: Chong Galindo MD :1970 A ge:54 Y S ex:Female Date:09/11/2024 Address:[address] [place], [place] [id number] Subjective: * Chief Complaints: * 5 * Electronic signature of MAMADOU GALINDO MD on 11/25/2025 at 11:43 AM EST Sign off status: Pending * Provider: Chong Galindo MD Date: Generated for Tabby lau/Alexandra/eTransmitting on: 0 11/25/2025 11:43 AM EST
--- OUTSIDE RECORDS SUMMARY | 2024-09-18 04:30 | XMS_ITS ---
Author Organization [facility] [address] Address [address] [place] [address] Care Team Providers Care Supervisor Grove Name Role Phone Chikis Swartz Unavailable [phone] ARANZA GALINDO Unavailable [phone] REASON FOR VISIT 5 Encounters Encounter Location Date Provider Diagnosis [facility] [address] [place] [address] 09/18/2024 ARANZA GALINDO Plan Of Treatment Next Appt Details Provider Name:THUAN ONEIL, 11/26/2025 09:15:00 AM, [address], [place], [address], Progress Notes * ARACELIAdriannedominicDOB:1970 (55 yo F)Acc No.[id number]:09/18/2024 Patient: Donya Zelaya Provider: Chong Galindo MD :1970 A ge:54 Y S ex:Female Date:09/18/2024 Address:[address] [place], [place] [id number] Subjective: * Chief Complaints: * 5 Plan: * Procedure Codes: 9 9199 NO SHOW OFFICE VISIT Billing Information: * Procedure Codes: 40216 NO SHOW OFFICE VISIT. * Electronic signature of MAMADOU GALINDO MD on 11/25/2025 at 11:41 AM EST Sign off status: Pending * Provider: Chong Galindo MD Date: 1 Generated for Printi ng/Faxing/eTransmitting on: 0 11/25/2025 11:41 AM EST
--- OUTSIDE RECORDS SUMMARY | 2024-11-26 03:30 | XMS_ITS ---
Author Organization [facility] [address] [address] Address [address] [place] [address] Care Team Providers Care Site Auditor Name Role Phone Chikis Swartz Unavailable [phone] THUAN ONEIL Unavailable [phone] Encounters Encounter Location Date Provider Diagnosis [facility] [address] [address] 11/26/2024 THUAN ONEIL Other obesity due to excess calories E66.09 ; Body mass index [BMI] 36.0-36.9, adult Z68.36 and Dietary counseling and surveillance Z71.3 Assessments Encounter Date Diagnosis (ICD Code) Assessment Notes Treatment Notes Treatment Clinical Notes Section Notes 11/26/2024 Other obesity due to excess calories (ICD-10 - E66.09) #Weight Management 11/26/2024 Follow-up on updated comprehensive labs later this morning She will get an office dose of 5 mg of compounded tirzepatide today Total time spent today was 30 minutes of which greater than 50% was spent on coordinating and counseling Patient has been found to be obese with a BMI of (36). Patient has class (2) obesity. We are a board certified obesity and weight management practice Patient has trialed behavioral modification, dietary restrictions and exercise for a minimum of 6 months The most recent [place] [employer] of clinical endocrinologists and [place] [employer]in[employer] guidelines recommend patients who have overweight BMI or obesity BMI, who also have metabolic syndrome, prediabetes, HLD, and other comorbidities or at risk of developing type 2 diabetes should aim for a weight loss goal of at least 10% of the baseline body weight Patient counseled regarding effects of GLP/GIP-1 agonists, and other FDA approved wgt loss meds with regards to a multifactorial approach of weight loss as mentioned above and not solely appetite suppression. Of note, some information is being carried forward from prior records for informational purposes only and is being cited so that efficiency, safety and quality of the patient's care is not compromised This note was prepared using voice recognition software and direct typing Please excuse inadvertent safety spec or typing errors, or uncorrected word substitutions Although every attempt has been made by the provider to proofread this document, occasional misspellings and typographical errors may still be present Due to the previous pandemic, and the use of personal protective equipment (PPE) This may decrease voice recognition accuracy Inadvertent safety spec errors may occur 11/26/2024 Body mass index [BMI] 36.0-36.9, adult (ICD-10 - Z68.36) #Weight Management 11/26/2024 Follow-up on updated comprehensive labs later this morning She will get an office dose of 5 mg of compounded tirzepatide today Total time spent today was 30 minutes of which greater than 50% was spent on coordinating and counseling Patient has been found to be obese with a BMI of (36). Patient has class (2) obesity. We are a board certified obesity and weight management practice Patient has trialed behavioral modification, dietary restrictions and exercise for a minimum of 6 months The most recent [place] [employer] of clinical endocrinologists and [place] [employer] end[employer]in[employer] guidelines recommend patients who have overweight BMI or obesity BMI, who also have metabolic syndrome, prediabetes, HLD, and other comorbidities or at risk of developing type 2 diabetes should aim for a weight loss goal of at least 10% of the baseline body weight Patient counseled regarding effects of GLP/GIP-1 agonists, and other FDA approved wgt loss meds with regards to a multifactorial approach of weight loss as mentioned above and not solely appetite suppression. Of note, some information is being carried forward from prior records for informational purposes only and is being cited so that efficiency, safety and quality of the patient's care is not compromised This note was prepared using voice recognition software and direct typing Please excuse inadvertent safety spec or typing errors, or uncorrected word substitutions Although every attempt has been made by the provider to proofread this document, occasional misspellings and typographical errors may still be present Due to the previous pandemic, and the use of personal protective equipment (PPE) This may decrease voice recognition accuracy Inadvertent safety spec errors may occur 11/26/2024 Dietary counseling and surveillance (ICD-10 - Z71.3) #Weight Management 11/26/2024 Follow-up on updated comprehensive labs later this morning She will get an office dose of 5 mg of compounded tirzepatide today Total time spent today was 30 minutes of which greater than 50% was spent on coordinating and counseling Patient has been found to be obese with a BMI of (36). Patient has class (2) obesity. We are a board certified obesity and weight management practice Patient has trialed behavioral modification, dietary restrictions and exercise for a minimum of 6 months The most recent [place] [employer] of clinical endocrinologists and [place] [employer] end[employer]in[employer] guidelines recommend patients who have overweight BMI or obesity BMI, who also have metabolic syndrome, prediabetes, HLD, and other comorbidities or at risk of developing type 2 diabetes should aim for a weight loss goal of at least 10% of the baseline body weight Patient counseled regarding effects of GLP/GIP-1 agonists, and other FDA approved wgt loss meds with regards to a multifactorial approach of weight loss as mentioned above and not solely appetite suppression. Of note, some information is being carried forward from prior records for informational purposes only and is being cited so that efficiency, safety and quality of the patient's care is not compromised This note was prepared using voice recognition software and direct typing Please excuse inadvertent safety spec or typing errors, or uncorrected word substitutions Although every attempt has been made by the provider to proofread this document, occasional misspellings and typographical errors may still be present Due to the previous pandemic, and the use of personal protective equipment (PPE) This may decrease voice recognition accuracy Inadvertent safety spec errors may occur Plan Of Treatment Next Appt Details Provider Name:THUAN ONEIL, 11/26/2025 09:15:00 AM, [address] [facility], [place], [address], History and Physical Notes * HPI (History of Present Illness) Category Sub-Category Detail Notes Category Not es Constitutional Patient is here today for a weight management f/u visit Patient seen and examined. Full past medical history, social history, family history, allergies and current medications were reviewed and updated. Body composition analysis reviewed today #Weight Management 11/26/2024 scheduled for in office dose of Tirz, 2.5mg Interested in going up to 5 mg awaiting PA for Zepbound, Currently on [employer] However switching to [employer] in about 2 months And unfortunately does not have weight loss medication coverage on her plan some nausea/vomiting with injection of medication, able to suppress by eating protein in the morning before the injection. Has reported a headache/migraine also. Recent injections have been going well with no side effects. 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 No recent screening Has not had an echocardiogram recently. Gastric Sleeve at [facility] Dr. Franks 2014 Thyroid nodules evaluated, benign, Dr. Muro , Underwent FNA and ultrasound PCP Dr. Webber in [place] Asthma on prolia Diet: yogurt w/ protein granola, protein shake, toast in the morning; salad and granola bar for lunch; snacks - strawberries or grapes; homecooked meal for dinner, usually with fish Exercise: Currently walks at work + x3 days/wk for 30-40 min; no weight lifting Non-smoker ETOH use: socially Examination Category Sub-Category Detail Notes Category Not es General Examination GENERAL APPEARANCE: in no ac [place] distress, well developed, well nourished HEAD: normocephalic, atrau matic EYES: pupils equal, round, reactive to light and accommodation EARS: normal THROAT: clear NECK/THYROID: neck supple, full ra nge of motion, no cervical lymphadenopathy HEART: no murmurs, regular rate and rhythm, S1, S2 normal LUNGS: clear to auscultatio n bilaterally ABDOMEN: normal, bowel sounds present, soft, nontender, nondistended NEUROLOGIC: nonfocal, motor stre ngth normal upper and lower extremities, sensory exam intact SKIN: no suspicious lesion s, warm and dry EXTREMITIES: no clubbing, cyanosi s, or edema ORAL CAVITY: mucosa moist Progress Notes * Digna HOSKINS:1970 (55 yo F)Acc No.[id number]:11/26/2024 Patient: Donya Zelaya Provider: Stanford ONEIL NP :1970 A ge:54 Y S ex:Female Date:11/26/2024 Address:[address] [place] [address] Subjective: * Chief Complaints: * HPI: C onstitutional: Patient is here today for a weight management f/u visit Patient seen and examined. Full past medical history, social history, family history, allergies and current medications were reviewed and updated. Body composition analysis reviewed today #Weight Management 11/26/2024 scheduled for in office dose of Tirz, 2.5mg Interested in going up to 5 mg awaiting PA for Zepbound, Currently on [employer] However switching to [employer] in about 2 months And unfortunately does not have weight loss medication coverage on her plan some nausea/vomiting with injection of medication, able to suppress by eating protein in the morning before the injection. Has reported a headache/migraine also. Recent injections have been going well with no side effects. 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 No recent screening Has not had an echocardiogram recently. Gastric Sleeve at [facility] Dr. Franks 2014 Thyroid nodules evaluated, benign, Dr. Muro , Underwent FNA and ultrasound PCP Dr. Webber in [place] Asthma on prolia Diet: yogurt w/ protein granola, protein shake, toast in the morning; salad and granola bar for lunch; snacks - strawberries or grapes; homecooked meal for dinner, usually with fish Exercise: Currently walks at work + x3 days/wk for 30-40 min; no weight lifting Non-smoker ETOH use: socially. * ROS: A ll Other Systems: Review of Systems (ROS) A ll others negative except those mentioned in HPI. Objective: * Examination: G eneral Examination: GENERAL APPEARANCE: i n no acute distress, well developed, well nourished. HEAD: n ormocephalic, atraumatic. EYES: p upils equal, round, reactive to light and accommodation. EARS: n ormal. ORAL CAVITY: m ucosa moist. THROAT: c lear. NECK/THYROID: n cristobal supple, full range of motion, no cervical lymphadenopathy. SKIN: n o suspicious lesions, warm and dry. HEART: n o murmurs, regular rate and rhythm, S1, S2 normal.? LUNGS: c lear to auscultation bilaterally. ABDOMEN: n ormal, bowel sounds present, soft, nontender, nondistended. EXTREMITIES: n o clubbing, cyanosis, or edema. NEUROLOGIC: n onfocal, motor strength normal upper and lower extremities, sensory exam intact. Assessment: * Assessment: 1. O ther obesity due to excess calories - E66.09 (Primary) 2 . B prince mass index [BMI] 36.0-36.9, adult - Z68.36 3 . D ietary counseling and surveillance - Z71.3 #Weight Management 11/26/2024 Follow-up on updated comprehensive labs later this morning She will get an office dose of 5 mg of compounded tirzepatide today Total time spent today was 30 minutes of which greater than 50% was spent on coordinating and counseling Patient has been found to be obese with a BMI of (36). Patient has class (2) obesity. We are a board certified obesity and weight management practice Patient has trialed behavioral modification, dietary restrictions and exercise for a minimum of 6 months The most recent [place] [employer] of clinical endocrinologists and [place] [employer] of endocrin[employer] guidelines recommend patients who have overweight BMI or obesity BMI, who also have metabolic syndrome, prediabetes, HLD, and other comorbidities or at risk of developing type 2 diabetes should aim for a weight loss goal of at least 10% of the baseline body weight Patient counseled regarding effects of GLP/GIP-1 agonists, and other FDA approved wgt loss meds with regards to a multifactorial approach of weight loss as mentioned above and not solely appetite suppression. Of note, some information is being carried forward from prior records for informational purposes only and is being cited so that efficiency, safety and quality of the patient's care is not compromised This note was prepared using voice recognition software and direct typing Please excuse inadvertent safety spec or typing errors, or uncorrected word substitutions Although every attempt has been made by the provider to proofread this document, occasional misspellings and typographical errors may still be present Due to the previous pandemic, and the use of personal protective equipment (PPE) This may decrease voice recognition accuracy Inadvertent safety spec errors may occur. * Electronic signature of NICO ONEIL on 11/25/2025 at 11:43 AM EST Sign off status: Pending * Provider: Stanford ONEIL NP Date: 0 11/26/2024 Generated for Tabby lau/Alexandra/Errol on: 11/25/2025 11:43 AM EST
--- OUTSIDE RECORDS SUMMARY | 2025-01-15 06:00 | XMS_ITS ---
Author Organization [facility] [address] Address [address] [place] [address] Care Team Providers Care Certified Coding Specialist Name Role Phone Chikis Swartz Unavailable [phone] THAD THUAN Unavailable [phone] Medications Medication SIG (Take, Route, Frequency, Duration) Notes Start Date End Date Status Wegovy 0.5 MG/0.5ML Solution Auto-injector 0.5mg Subcutaneous weekly; Duration: 30 days Active Encounters Encounter Location Date Provider Diagnosis [facility] [address] [place] [address] 01/15/2025 THUAN ONEIL Other obesity due to excess calories E66.09 ; BMI 35.0-35.9,adult Z68.35 ; Dietary counseling and surveillance Z71.3 and Prediabetes R73.03 Assessments Encounter Date Diagnosis (ICD Code) Assessment Notes Treatment Notes Treatment Clinical Notes Section Notes 01/15/2025 Other obesity due to excess calories (ICD-10 - E66.09) #Weight Management 01/15/2025 Increase Wegovy to 0.5 mg Supplement vitamin D high dose please, 5000 IUs daily Did not want 50,000 IUs weekly Total time spent today was 30 minutes of which greater than 50% was spent on coordinating and counseling Patient has been found to be obese with a BMI of (35). Patient has class (2) obesity. We are a board certified obesity and weight management practice Of note, some information is being carried forward from prior records for informational purposes only and is being cited so that efficiency, safety and quality of the patient's care is not compromised This note was prepared using voice recognition software and direct typing Please excuse inadvertent ssis developer or typing errors, or uncorrected word substitutions Although every attempt has been made by the provider to proofread this document, occasional misspellings and typographical errors may still be present Due to the previous pandemic, and the use of personal protective equipment (PPE) This may decrease voice recognition accuracy Inadvertent ssis developer errors may occur 01/15/2025 BMI 35.0-35.9,adult (ICD-10 - Z68.35) #Weight Management 01/15/2025 Increase Wegovy to 0.5 mg Supplement vitamin D high dose please, 5000 IUs daily Did not want 50,000 IUs weekly Total time spent today was 30 minutes of which greater than 50% was spent on coordinating and counseling Patient has been found to be obese with a BMI of (35). Patient has class (2) obesity. We are a board certified obesity and weight management practice Of note, some information is being carried forward from prior records for informational purposes only and is being cited so that efficiency, safety and quality of the patient's care is not compromised This note was prepared using voice recognition software and direct typing Please excuse inadvertent ssis developer or typing errors, or uncorrected word substitutions Although every attempt has been made by the provider to proofread this document, occasional misspellings and typographical errors may still be present Due to the previous pandemic, and the use of personal protective equipment (PPE) This may decrease voice recognition accuracy Inadvertent ssis developer errors may occur 01/15/2025 Dietary counseling and surveillance (ICD-10 - Z71.3) #Weight Management 01/15/2025 Increase Wegovy to 0.5 mg Supplement vitamin D high dose please, 5000 IUs daily Did not want 50,000 IUs weekly Total time spent today was 30 minutes of which greater than 50% was spent on coordinating and counseling Patient has been found to be obese with a BMI of (35). Patient has class (2) obesity. We are a board certified obesity and weight management practice Of note, some information is being carried forward from prior records for informational purposes only and is being cited so that efficiency, safety and quality of the patient's care is not compromised This note was prepared using voice recognition software and direct typing Please excuse inadvertent ssis developer or typing errors, or uncorrected word substitutions Although every attempt has been made by the provider to proofread this document, occasional misspellings and typographical errors may still be present Due to the previous pandemic, and the use of personal protective equipment (PPE) This may decrease voice recognition accuracy Inadvertent ssis developer errors may occur 01/15/2025 Prediabetes (ICD-10 - R73.03) #Weight Management 01/15/2025 Increase Wegovy to 0.5 mg Supplement vitamin D high dose please, 5000 IUs daily Did not want 50,000 IUs weekly Total time spent today was 30 minutes of which greater than 50% was spent on coordinating and counseling Patient has been found to be obese with a BMI of (35). Patient has class (2) obesity. We are a board certified obesity and weight management practice Of note, some information is being carried forward from prior records for informational purposes only and is being cited so that efficiency, safety and quality of the patient's care is not compromised This note was prepared using voice recognition software and direct typing Please excuse inadvertent ssis developer or typing errors, or uncorrected word substitutions Although every attempt has been made by the provider to proofread this document, occasional misspellings and typographical errors may still be present Due to the previous pandemic, and the use of personal protective equipment (PPE) This may decrease voice recognition accuracy Inadvertent ssis developer errors may occur Plan Of Treatment Medication Medication Name Sig Start Date Stop Date Notes Wegovy 0.5 MG/0.5ML Solution Auto-injector 0.5mg Subcutaneous weekly; Duration: 30 days Next Appt Details Provider Name:THUAN ONEIL, 11/26/2025 09:15:00 AM, [address] [facility], [place], [address], History and Physical Notes * HPI (History of Present Illness) Category Sub-Category Detail Notes Category Not es Constitutional Patient is here today for a weight management f/u visit Patient seen and examined. Full past medical history, social history, family history, allergies and current medications were reviewed and updated. Body composition analysis reviewed today #Weight Management 01/15/2025 Discussed the need for vitamin D supplementation on wegovy low dose 0.25mg Is amendable to increasing to 0.5mg previously in office compounded Tirz down fat mass some nausea/vomiting with injection of medication, able to suppress by eating protein in the morning before the injection. Has reported a headache/migraine also. Recent injections have been going well with no side effects. takes stool softner for chronic constipation - has IBS modified diet significantly Gastric Sleeve at [facility] Dr. Franks 2014 Thyroid nodules evaluated, benign, Dr. Muro , Underwent FNA and ultrasound Diet: yogurt w/ protein granola, protein shake, toast in the morning; salad and granola bar for lunch; snacks - strawberries or grapes; homecooked meal for dinner, usually with fish Exercise: Currently walks at work + x3 days/wk for 30-40 min; no weight lifting Non-smoker ETOH use: socially PCP Dr. 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, negative Metabolic workup: as above Has not had an echocardiogram recently. Examination Category Sub-Category Detail Notes Category Not es General Examination GENERAL APPEARANCE: in no ac maile distress, well developed, well nourished HEAD: normocephalic, [...] ORAL CAVITY: mucosa moist Progress Notes * Donya HOSKINSDOB:1970 (55 yo F)Acc No.[id number]:01/15/2025 Patient: F raterDonya Provider: Stanford ONEIL NP :1970 A ge:54 Y S ex:Female Date:01/15/2025 Address:[address] [place], [place] [id number] Subjective: * Chief Complaints: * HPI: C onstitutional: Patient is here today for a weight management f/u visit Patient seen and examined. Full past medical history, social history, family history, allergies and current medications were reviewed and updated. Body composition analysis reviewed today #Weight Management 01/15/2025 Discussed the need for vitamin D supplementation on wegovy low dose 0.25mg Is amendable to increasing to 0.5mg previously in office compounded Tirz down fat mass some nausea/vomiting with injection of medication, able to suppress by eating protein in the morning before the injection. Has reported a headache/migraine also. Recent injections have been going well with no side effects. takes stool softner for chronic constipation - has IBS modified diet significantly Gastric Sleeve at [facility] Dr. Franks 2014 Thyroid nodules evaluated, benign, Dr. Muro , Underwent FNA and ultrasound Diet: yogurt w/ protein granola, protein shake, toast in the morning; salad and granola bar for lunch; snacks - strawberries or grapes; homecooked meal for dinner, usually with fish Exercise: Currently walks at work + x3 days/wk for 30-40 min; no weight lifting Non-smoker ETOH use: socially PCP Dr. 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 [employer] [facility] [employer], negative Metabolic workup: as above Has not had an echocardiogram recently. * ROS: A ll Other Systems: Review [...] calories - E66.09 (Primary) 2 . B ME 35.0-35.9,adult - Z68.35 3 . D ietary counseling and surveillance - Z71.3 ?4. P rediabetes - R73.03 #Weight Management 01/15/2025 Increase Wegovy to 0.5 mg Supplement vitamin D high dose please, 5000 IUs daily Did not want 50,000 IUs weekly Total time spent today was 30 minutes of which greater than 50% was spent on coordinating and counseling Patient has been found to be obese with a BMI of (35). Patient has class (2) obesity. We are a board certified obesity and weight management practice Of note, some information is being carried forward from prior records for informational purposes only and is being cited so that efficiency, safety and quality of the patient's care is not compromised This note was prepared using voice recognition software and direct typing Please excuse inadvertent ssis developer or typing errors, or uncorrected word substitutions Although every attempt has been made by the provider to proofread this document, occasional misspellings and typographical errors may still be present Due to the previous pandemic, and the use of personal protective equipment (PPE) This may decrease voice recognition accuracy Inadvertent ssis developer errors may occur. Plan: * Treatment: * Electronic signature of NICO ONEIL on 11/25/2025 at 11:42 AM EST Sign off status: Pending * Provider: Stanford ONEIL NP Date: 0 01/15/2025 Generated for Tabby Hurt/Errol on: 0 11/25/2025 11:42 AM EST
--- OUTSIDE RECORDS SUMMARY | 2025-02-01 04:06 | XMS_ITS ---
Author Organization Payam Saravia III, MD Address [address] [place] [address] [place] [address] Care Team Providers Care Director Service Name Role Phone Dr. Payam Saravia III Primary Care Provider [phone] REASON FOR VISIT Out of work Note Social History Sex Assigned At : Social History Observation Description Sex Assigned At Female Encounters Encounter Location Date Provider Diagnosis Payam Saravia III, MD [address] [place] [address] [place] [address] 02/01/2025 Payam Saravia Plan Of Treatment Next Appt Details Provider Name:Payam Saravia , 01/18/2026 02:00:00 PM, [address] [place] [address] [place], [address], Provider Name:Payam Saravia , 09/18/2026 03:00:00 PM, [address] [place] [address] [place], [address], Progress Notes * Donya HOSKINSDOB:1970 (54 yo F)Acc No.[id number]:02/01/2025 Patient: Donya ORTA :1970 A ge:54 Y S ex:Female Address:[address] [place] [address] * true * Date: Generated for Printi ng/Faxing/eTransmitting on: 0 11/25/2025 11:42 AM EST
--- OUTSIDE RECORDS SUMMARY | 2025-02-08 10:14 | XMS_ITS ---
Author Organization Payam Saravia III, MD Address [address] [place] [address] [place] [address] Care Team Providers Care Chief Librarian Extension Department Name Role Phone Dr. Payam Saravia III Primary Care Provider REASON FOR VISIT high BP Social History Sex Assigned At : Social History Observation Description Sex Assigned At Female Encounters Encounter Location Date Provider Diagnosis Payam Saravia III, MD [address] [place] [address] [place] [address] 02/08/2025 Payam Saravia Plan Of Treatment Next Appt Details Provider Name:Payam Saravia , 01/18/2026 02:00:00 PM, [address] [place] [address] [place], [address], Provider Name:Payam Saravia , 09/18/2026 03:00:00 PM, [address] [place] [address] [place], [address], Progress Notes * Donya HOSKINSDOB:1970 (54 yo F)Acc No.[id number]:02/08/2025 Patient: Donya ORTA :1970 A ge:54 Y S ex:Female Address:[address] [place] [id number] * true * Date: Generated for Printi ng/Faxing/eTransmitting on: 0 11/25/2025 11:41 AM EST
--- OUTSIDE RECORDS SUMMARY | 2025-02-16 10:00 | XMS_ITS ---
Author Organization Payam Saravia III, MD Address [address] [place] [address] [place] [address] Care Team Providers Care Abalone Processor Name Role Phone Dr. Payam Saravia III [...] Date Provider Diagnosis Payam Saravia III, MD [address] [place] [address] [place] [address] 02/16/2025 Payam Saravia Obesity E66.9 ; Insomnia [...] 100 MG TAKE 1 CAPSULE BY MO [facility] EVERY DAY WITH FOOD FOR 30 DAYS Triamterene-HCTZ 37.5-25 MG 1 tablet Orally one every other day 12/23/2023 Next Appt Details Follow Up: 4 Weeks, Reason: OV recheck BP Provider Name:Payam Saravia , 01/18/2026 02:00:00 PM, [address] [place] [address] [address], [place], [address], Provider Name:Payam Saravia , 09/18/2026 03:00:00 PM, [address] [place] [address] [address], [place], [address], Progress Notes * Donya HOSKINSDOB:1970 (54 yo F)Acc No.[id number]:02/16/2025 Progress Notes Patient: Donya ORTA Provider: Doug Saravia MD :1970 A ge:54 Y S ex:Female Date:02/16/2025 Address:[address] [place], [place] [id number] Subjective: * Chief Complaints: * H ypertensionHistory [...] stic Procedure: u pper endoscopy, Dr. Chacon, [facility] 04/2021No history * Family History: F ather: [...] De La Cruz. She was born in [place], [place], has 6 well children and has been 19 years to [place]le. She was born in [place]. The patient has grandchildren who are active [...] MD Date: 0 02/16/2025 Generated for Tabby lau/Alexandra/Tuckersmitting on: 0 11/25/2025 11:42 AM EST History and Physical Notes * [...]
--- OUTSIDE RECORDS SUMMARY | 2025-02-28 08:30 | XMS_ITS ---
Author Organization Payam Saravia III, MD Address [address] [place] [address] [place] [address] Care Team Providers Care Component Design Engineer Name Role Phone Dr. Payam Saravia III Primary Care Provider [phone] Allergies Allergen (clinical drug ingredient) Drug/Non Drug Allergy documented on EMR Reaction Allergy Type Onset Date Status acetaminophen / oxycodone Percocet Unknown Drug Allergy Active REASON FOR VISIT Sore throat, Congestion, Goiter, Asthma, Obesity, Hypothyroidism Medications Medication SIG (Take, Route, Frequency, Duration) Notes Start Date End Date Status Wegovy 0.5 MG/0.5ML INJECT 0.5 MG SUBCUTANEOUSLY WEEKLY Subcutaneous Active Budesonide-Formote rol Fumarate 160-4.5 MCG/ACT two puffs Inhalation twice a day 02/10/2024 Active Loratadine 10 MG 1 tablet Orally Once a day 03/12/2024 Active ProAir HFA 108 (90 Base) MCG/ACT 1 puff as needed Inhalation every 4 hrs 03/23/2021 Active Zepbound 2.5 MG/0.5ML as directed Subcutaneous once a week 02/06/2024 Active Albuterol Sulfate HFA 108 (90 Base) MCG/ACT 1 puff as needed Inhalation every 4 hrs J45.41 Moderate persistent asthmatic bronchitis with acute exacerbation 08/20/2024 Active Triamterene-HCTZ 37.5-25 MG 1 tablet Orally one every other day 12/23/2023 Active predniSONE 20 MG 2 tablets Orally Onc e a day J45.41 Moderate persistent asthmatic bronchitis with acute exacerbation Active Celecoxib 100 MG TAKE 1 CAPSULE BY MOUTH EVERY DAY WITH FOOD FOR 30 DAYS Active Ibuprofen 800 MG TAKE 1 TABLET BY MOUTH THREE TIMES A DAY WITH FOOD OR MILK NEEDED FOR 30 DAYS Active Amoxicillin-Pot Clavulanate 875-125 MG 1 tablet Orally every 12 hrs for 7 days 02/28/2025 03/07/2025 Active Social History Tobacco Use: Social History Observation Description Date Details (start date - stop date) Never Smoker NA - NA Sex Assigned At : Social History Observation Description Sex Assigned At Female Tobacco Control (Standard) Question Answer Notes Tobacco use: Nonsmoker Additional Findings: Tobacco non-user Aggressive nonsmoker Problems Problem Type SNOMED Code ICD Code Onset Dates Problem Status W/U Status Risk Notes Problem [id number] Acute pneumonia (J18.9) Active confirmed She will finish the antibiotic tomorrow she is afebrile and the cough is diminished and nonproductive. I have ordered a chest x-ray and comprehensive blood work. She was breathing comfortably on room air. Vital Signs Height 72 in 02/28/2025 Weight 259 lbs 02/28/2025 BMI 35.12 kg/m2 02/28/2025 Encounters Encounter Location Date Provider Diagnosis Payam Saravia III, MD [address] [place] [address] [place] [address] 02/28/2025 Payam Saravia Acute pharyngitis, unspecified etiology J02.9 ; Depressive disorder, not elsewhere classified F32.9 ; Nontoxic multinodular goiter E04.2 ; Mild intermittent asthma without complication J45.20 ; Insomnia due to medical condition G47.01 ; Obesity E66.9 ; Iron deficiency anemia due to chronic blood loss D50.0 ; Arthritis of both knees M17.0 and Hypothyroidism, unspecified E03.9 Assessments Encounter Date Diagnosis (ICD Code) Assessment Notes Treatment Notes Treatment Clinical Notes 02/28/2025 Acute pharyngitis, unspecified etiology (ICD-10 - J02.9) She was given a prescription for Augmentin in case of strep. In the event that she has a urinary tract infection. A followup was arranged. If necessary, or throat will be cultured along with her urine. 02/28/2025 Depressive disorder, not elsewhere classified (ICD-10 - F32.9) She continues on psychotherapy and on the antidepressant. She is not suicidal. We reviewed weight loss strategies. She will be seen frequently. 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 She is feeling healthy well at this time. 02/28/2025 Mild intermittent asthma without complication (ICD-10 - J45.20) Her lungs were clear today and she was breathing without difficulty. Use her medications as prescribed if she has return of thhe asthma. I have asked her to notify me if this occurs. 02/28/2025 Insomnia due to medical condition (ICD-10 - G47.01) She is sleeping well lately and has a little trouble with this problem. 02/28/2025 Obesity (ICD-10 - E66.9) She has lost 4 pounds. She will continue on the Wegovy in the weight loss program.He followed at monthly intervals.She will continue the Zepbound 02/28/2025 Iron deficiency anemia due to chronic blood loss (ICD-10 - D50.0) She was continued on current therapy.I have added Advair maintenance inhaler. 02/28/2025 Arthritis of both knees (ICD-10 - M17.0) Her knee pain is mild she is able to work. Is mostly related to weightbearing. 02/28/2025 Hypothyroidism, unspecified (ICD-10 - E03.9) She is clinically euthyroid. She has been compliant with her medication. No changes in her therapy was necessary. Comprehensive blood work will thyroid function test was ordered today. Plan Of Treatment Medication Medication Name Sig Start Date Stop Date Notes Wegovy 0.5 MG/0.5ML INJECT 0.5 MG SUBCUTANEOUSLY WEEKLY Subcutaneous Budesonide-Formotero l Fumarate 160-4.5 MCG/ACT two puffs Inhalation twice a day 02/10/2024 Loratadine 10 MG 1 tablet Orally Once a day 03/12/2024 ProAir HFA 108 (90 Base) MCG/ACT 1 puff as needed Inhalation every 4 hrs 03/23/2021 Zepbound 2.5 MG/0.5ML as directed Subcutaneous once a week 02/06/2024 Albuterol Sulfate HFA 108 (90 Base) MCG/ACT 1 puff as needed Inhalation every 4 hrs 08/20/2024 J45.41 Moderate persistent asthmatic bronchitis with acute exacerbation Triamterene-HCTZ 37.5-25 MG 1 tablet Orally one every other day 12/23/2023 predniSONE 20 MG 2 tablets Orally Onc e a day J45.41 Moderate persistent asthmatic bronchitis with acute exacerbation Celecoxib 100 MG TAKE 1 CAPSULE BY MO UTH EVERY DAY WITH FOOD FOR 30 DAYS Ibuprofen 800 MG TAKE 1 TABLET BY PEARL TH THREE TIMES A DAY WITH FOOD OR MILK NEEDED FOR 30 DAYS Amoxicillin-Pot Clavulanate 875-125 MG 1 tablet Orally every 12 hrs for 7 days 02/28/2025 03/07/2025 Next Appt Details Follow Up: As Scheduled, Zee son: OV Provider Name:Payam Saravia , 01/18/2026 02:00:00 PM, [address] [place] [address] [address], [place], [address], Provider Name:Payam Saravia , 09/18/2026 03:00:00 PM, [address] [place] [address] [address], [place], [address], Progress Notes * Donya HOSKINSDOB:1970 (54 yo F)Acc No.[id number]:02/28/2025 Patient: Donya ORTA Provider: Doug Saravia MD :1970 A ge:54 Y S ex:Female Date:02/28/2025 Address:[address] [place] [address] Subjective: * Chief Complaints: * S ore throatCongestionGoiterAsthmaObesityHypothyroidism * HPI: * : She has been ill for several days with a sore throat as well as dysuria and fever of 102.? She believes she has a urinary tract infection. At work. She has been in close contact with to people with streptococcal pharyngitis. I have given her a prescription for Augmentin to cover the urinary tract infection and the possible strep infection. Rock: is going to report every 48 hours on her status. Telehealth L ocation of provider rendering services: { ...} [address] [facility] [address] L ocation of patient: margarita watts listed in demographics for today's visit P atient identification confirmed using: DAVID Saldana ame T elehealth method: T elephone only. Patient not visible to care provider. C onsent: P atient verbally consented to treatment, Patient verbally consented to billing insurance company, Patient informed of any privacy concerns related to method of visit T otal time spent with patient (mins) 1 5 * ROS: G eneral/Constitutional: pain S ore throat, otherwise only normal aches and pains.?Chills a ssociated with fever. F atigue a dmits. F ever u p to 102 degrees.? E NT: Decreased hearing d enies. R espiratory: Cough d enies. C ardiovascular: Chest pain with exertion d enies. D yspnea on exertion?denies. S hortness of breath d enies. G astrointestinal: Constipation o ccasional. D ecreased appetite d enies. D iarrhea d enies. H eartburn d enies. N ausea d enies. R ectal bleeding d enies. V omiting d enies. H ematology: bruising d enies. p etechiae d enies. S wollen glands n one have been noted. G enitourinary: Frequent urination S mall amounts with dysuria. ? M usculoskeletal: Muscle aches d enies. P ainful joints d enies. S ciatica d enies. W eakness d enies. S kin: Itching d enies. R elio d enies. S kin lesion(s)?denies. N eurologic: Difficulty speaking d enies. D izziness d enies.?Headache d enies. L ow back pain t hat is new. P sychiatric: Depressed mood w hich is mild. * Medical History: * Surgical History: h ip fracture repair [facility] 2005pantoectomy 03/2018No history * Hospitalization/Major Diagno stic Procedure: u pper endoscopy, Dr. Chacon, [facility] 04/2021No history * Family History: [...] De La Cruz. She was born in [place], [place], has 6 well children and has been 19 years to [place]. She was born in [place]. The patient has grandchildren who are active [...] Vitals: H t: 72, Wt: 259, BMI:35.12, Wt-k.48. Assessment: * Assessment: 1. A cute pharyngitis, unspecified etiology - J02.9 (Primary) N otes :She was given a prescription for Augmentin in case of strep. In the event that she has a urinary tract infection. A followup was arranged. If necessary, or throat will be cultured along with her urine. 2 . D epressive disorder, not elsewhere classified - F32.9 N otes :She continues on psychotherapy and on the antidepressant. She is not suicidal. We reviewed weight loss strategies. She will be seen frequently. 3 . 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 She is feeling healthy well at this time. 4 . M ild intermittent asthma without complication - J45.20 N otes :Her lungs were clear today and she was breathing without difficulty. Use her medications as prescribed if she has return of thhe asthma. I have asked her to notify me if this occurs. 5 . I nsomnia due to medical condition - G47.01 N otes :She is sleeping well lately and has a little trouble with this problem. 6 . O besity - E66.9 N otes :She has lost 4 pounds. She will continue on the Wegovy in the weight loss program.He followed at monthly intervals.She will continue the Zepbound 7 . I melida deficiency anemia due to chronic blood loss - D50.0 N otes :She was continued on current therapy.I have added Advair maintenance inhaler. 8 . A rthritis of both knees - M17.0 N otes :Her knee pain is mild she is able to work. Is mostly related to weightbearing. 9 . H ypothyroidism, unspecified - E03.9 N [...] management education, guidance, and counseling, Dietary needs education * Follow Up: A s Scheduled (Reason: OV) * Images: * Sign off status: Completed true * Provider: Doug Saravia MD Date: 0 02/28/2025 Generated for Tabby lau/Alexandra/Shawnaitting on: 0 11/25/2025 11:41 AM EST History and Physical Notes * HPI (History of Present Illness) Category Sub-Category Detail Notes Telehealth Location of [facility] rendering services:: {...} [address] [place] [address] [address] [place] [id number] Location of patient:: address listed in demographics for today's visit Patient identification confirmed using:: Name, Telehealth method:: Telephone only. Patricia ent not visible to care provider. Consent:: Patient verbally c onsented to treatment, Patient verbally consented to billing insurance company, Patient informed of any privacy concerns related to method of visit Total time spent with patient (mins): 15
--- OUTSIDE RECORDS SUMMARY | 2025-03-23 09:30 | XMS_ITS ---
Author Organization Payam Saravia III, MD Address [address] [place] [address] [place] [address] Care Team Providers Care Partridge Farmer Name Role Phone Dr. 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 [...] 100 MG TAKE 1 CAPSULE BY [facility] EVERY DAY WITH FOOD FOR 30 [...] Provider Name:Payam Saravia , 01/18/2026 02:00:00 PM, [address] [place] [address] [address], [place], [address], Provider Name:Payam Saravia , 09/18/2026 03:00:00 PM, [address] [place] [address] [address], [place], [address], Progress Notes * Donya HOSKINSDOB:1970 (54 yo F)Acc No.[id number]:03/23/2025 Patient: Donya ORTA Provider: Doug Saravia MD :1970 A ge:54 Y S ex:Female Date:03/23/2025 Address:[address] [place], [place] [id number] Subjective: * Chief Complaints: * E pisode of stressNausea and vomitingHistory of depressionAsthmaInsomniaObesityDiabetesHypothyroidism * HPI: * : vomiting abd pain stressing. Telehealth L ocation of provider rendering services: { ...} [address] [facility] [address] L ocation of patient: margarita ddress listed [...] stic Procedure: u pper endoscopy, Dr. Chacon, [facility] 04/2021No history * Family History: F [...] De La Cruz. She was born in [place], [place], has 6 well children and has been 19 years to [place]. She was born in [place]. 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 [...] MD Date: 0 03/23/2025 Generated for Tabby lau/Alexandra/Tuckersmitting on: 0 11/25/2025 11:41 AM EST History and Physical Notes * HPI (History of Present Illness) Category Sub-Category Detail Notes Telehealth Location of [facility] rendering services:: {...} [address] [place] [address] Drive [address] [facility] [address] Location of patient:: address listed in demographics [...]
--- OUTSIDE RECORDS SUMMARY | 2025-03-30 09:45 | XMS_ITS ---
Author Organization Payam Saravia III, MD Address [address] [place] [address] [address] [place] [address] Care Team Providers Care Laboratory Technologist Name Role Phone Dr. 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 [...] Celecoxib 100 MG TAKE 1 CAPSULE BY [facility] EVERY DAY WITH FOOD FOR 30 [...] Provider Name:Payam Saravia , 01/18/2026 02:00:00 PM, [address] [place] [address] [address], [place], [address], Provider Name:Payam Saravia , 09/18/2026 03:00:00 PM, [address] [place] [address] [address], [place], [address], Progress Notes * Donya HOSKINSDOB:1970 (54 yo F)Acc No.[id number]:03/30/2025 Progress Notes Patient: Donya ORTA Provider: Doug Saravia MD :1970 A ge:54 Y S ex:Female Date:03/30/2025 Address:[address] [place], [place] [phone] Subjective: * Chief Complaints: * Z epbound [...] stic Procedure: u pper endoscopy, Dr. Chacon, [facility] 04/2021No history * Family History: F ather: [...] De La Cruz. She was born in [place], [place], has 6 well children and has been 19 years to [place]. She was born in [place]. 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 [...] 0 03/30/2025 Generated for Tabby lau/Alexandra/Shawnaitting on: 0 11/25/2025 11:42 AM EST History [...]
--- OUTSIDE RECORDS SUMMARY | 2025-04-30 04:30 | XMS_ITS ---
Author Organization [facility] [address] Address [address] [place] [address] Care Team Providers Care Counseling Department Chair Name Role Phone Chikis Swartz Unavailable [phone] THUAN ONEIL Unavailable [phone] Medications Medication SIG (Take, Route, Frequency, Duration) Notes Start Date End Date Status Wegovy 1.7 MG/0.75ML Solution Auto-injector 1.7mg Subcutaneous weekly; Duration: 30 days Active ProAir HFA PRN Active predniSONE 10 MG Tablet 1 tablet Orally Once a day PRN Active Ondansetron 4 MG Tablet Disintegrating 1 tablet on the tongue and allow to dissolve prn nausea/vomiting Orally twice day; Duration: 30 days 08/06/2024 Active Wegovy 1 MG/0.5ML Solution Auto-injector 1mg Subcutaneous weekly; Duration: 30 days 01/29/2025 Active Encounters Encounter Location Date Provider Diagnosis [facility] [address] [place] [address] 04/30/2025 THUAN ONEIL Other obesity due to excess calories E66.09 ; BMI 34.0-34.9,adult Z68.34 ; Dietary counseling and surveillance Z71.3 ; Prediabetes R73.03 and Encounter for examination of blood pressure without abnormal findings Z01.30 Assessments Encounter Date Diagnosis (ICD Code) Assessment Notes Treatment Notes Treatment Clinical Notes Section Notes 04/30/2025 Other obesity due to excess calories (ICD-10 - E66.09) #Weight Management 04/30/2025 Increase Wegovy to 1.7 mg cont Vit D high dose supplentation Total time spent today was 30 minutes of which greater than 50% was spent on coordinating and counseling Patient has been found to be obese with a BMI of (34). Patient has class (2) obesity. We are a board certified obesity and weight management practice Of note, some information is being carried forward from prior records for informational purposes only and is being cited so that efficiency, safety and quality of the patient's care is not compromised This note was prepared using voice recognition software and direct typing Please excuse inadvertent mill tender washing or typing errors, or uncorrected word substitutions Although every attempt has been made by the provider to proofread this document, occasional misspellings and typographical errors may still be present Due to the previous pandemic, and the use of personal protective equipment (PPE) This may decrease voice recognition accuracy Inadvertent mill tender washing errors may occur 04/30/2025 BMI 34.0-34.9,adult (ICD-10 - Z68.34) #Weight Management 04/30/2025 Increase Wegovy to 1.7 mg cont Vit D high dose supplentation Total time spent today was 30 minutes of which greater than 50% was spent on coordinating and counseling Patient has been found to be obese with a BMI of (34). Patient has class (2) obesity. We are a board certified obesity and weight management practice Of note, some information is being carried forward from prior records for informational purposes only and is being cited so that efficiency, safety and quality of the patient's care is not compromised This note was prepared using voice recognition software and direct typing Please excuse inadvertent mill tender washing or typing errors, or uncorrected word substitutions Although every attempt has been made by the provider to proofread this document, occasional misspellings and typographical errors may still be present Due to the previous pandemic, and the use of personal protective equipment (PPE) This may decrease voice recognition accuracy Inadvertent mill tender washing errors may occur 04/30/2025 Dietary counseling and surveillance (ICD-10 - Z71.3) #Weight Management 04/30/2025 Increase Wegovy to 1.7 mg cont Vit D high dose supplentation Total time spent today was 30 minutes of which greater than 50% was spent on coordinating and counseling Patient has been found to be obese with a BMI of (34). Patient has class (2) obesity. We are a board certified obesity and weight management practice Of note, some information is being carried forward from prior records for informational purposes only and is being cited so that efficiency, safety and quality of the patient's care is not compromised This note was prepared using voice recognition software and direct typing Please excuse inadvertent mill tender washing or typing errors, or uncorrected word substitutions Although every attempt has been made by the provider to proofread this document, occasional misspellings and typographical errors may still be present Due to the previous pandemic, and the use of personal protective equipment (PPE) This may decrease voice recognition accuracy Inadvertent mill tender washing errors may occur 04/30/2025 Prediabetes (ICD-10 - R73.03) #Weight Management 04/30/2025 Increase Wegovy to 1.7 mg cont Vit D high dose supplentation Total time spent today was 30 minutes of which greater than 50% was spent on coordinating and counseling Patient has been found to be obese with a BMI of (34). Patient has class (2) obesity. We are a board certified obesity and weight management practice Of note, some information is being carried forward from prior records for informational purposes only and is being cited so that efficiency, safety and quality of the patient's care is not compromised This note was prepared using voice recognition software and direct typing Please excuse inadvertent mill tender washing or typing errors, or uncorrected word substitutions Although every attempt has been made by the provider to proofread this document, occasional misspellings and typographical errors may still be present Due to the previous pandemic, and the use of personal protective equipment (PPE) This may decrease voice recognition accuracy Inadvertent mill tender washing errors may occur 04/30/2025 Encounter for examination of blood pressure without abnormal findings (ICD-10 - Z01.30) #Weight Management 04/30/2025 Increase Wegovy to 1.7 mg cont Vit D high dose supplentation Total time spent today was 30 minutes of which greater than 50% was spent on coordinating and counseling Patient has been found to be obese with a BMI of (34). Patient has class (2) obesity. We are a board certified obesity and weight management practice Of note, some information is being carried forward from prior records for informational purposes only and is being cited so that efficiency, safety and quality of the patient's care is not compromised This note was prepared using voice recognition software and direct typing Please excuse inadvertent mill tender washing or typing errors, or uncorrected word substitutions Although every attempt has been made by the provider to proofread this document, occasional misspellings and typographical errors may still be present Due to the previous pandemic, and the use of personal protective equipment (PPE) This may decrease voice recognition accuracy Inadvertent mill tender washing errors may occur Plan Of Treatment Medication Medication Name Sig Start Date Stop Date Notes Wegovy 1.7 MG/0.75ML Solution Auto-injector 1.7mg Subcutaneous weekly; Duration: 30 days Next Appt Details Provider Name:THUAN ONEIL, 11/26/2025 09:15:00 AM, [address], [place], [address], History and Physical Notes * HPI (History of Present Illness) Category Sub-Category Detail Notes Category Not es Constitutional Patient is here today for a weight management f/u visit Patient seen and examined. Full past medical history, social history, family history, allergies and current medications were reviewed and updated. Body composition analysis reviewed today #Weight Management 04/30/2025 24-hour dietary recall Breakfast: Lunch: Dinner: Snacking: on high dose vitamin D supplementation Has completed 3 weeks of the 1 mg of Wegovy, injecting Saturdays today last dose Interested in increasing to 1.7 mg Improving body composition analysis able to suppress by eating protein in the morning before the injection. takes stool softner for chronic constipation - has IBS modified diet significantly Gastric Sleeve at [facility] Dr. Franks 2014 Thyroid nodules evaluated, benign, Dr. Muro , Underwent FNA and ultrasound Exercise: Currently walks at work + x3 days/wk for 30-40 min; no weight lifting Non-smoker ETOH use: socially PCP Dr. 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 [employer] Highest weight: 320lbs Lowest weight: 220 lbs Goal weight: 220 lbs MISTI screening/STOP-BANG/[place], evaluated in 2015 at [facility], negative Examination Category Sub-Category Detail Notes Category Not es General Examination GENERAL APPEARANCE: in no ac [place] distress, well developed, well nourished HEAD: normocephalic, [...] Notes * Donya HOSKINSDOB:1970 (55 yo F)Acc No.[id number]:04/30/2025 Patient: Flo dylanAdrianneDonya Provider: Stanford ONEIL NP :1970 A ge:54 Y S ex:Female Date:04/30/2025 Address:[address] [place] [address] Subjective: * Chief Complaints: * HPI: C onstitutional: Patient is here today for a weight management f/u visit Patient seen and examined. Full past medical history, social history, family history, allergies and current medications were reviewed and updated. Body composition analysis reviewed today #Weight Management 04/30/2025 24-hour dietary recall Breakfast: Lunch: Dinner: Snacking: on high dose vitamin D supplementation Has completed 3 weeks of the 1 mg of Wegovy, injecting Saturdays today last dose Interested in increasing to 1.7 mg Improving body composition analysis able to suppress by eating protein in the morning before the injection. takes stool softner for chronic constipation - has IBS modified diet significantly Gastric Sleeve at [facility] Dr. Franks 2014 Thyroid nodules evaluated, benign, Dr. Muro , Underwent FNA and ultrasound Exercise: Currently walks at work + x3 days/wk for 30-40 min; no weight lifting Non-smoker ETOH use: socially PCP Dr. 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 * ROS: A ll Other Systems: Review of Systems (ROS) A ll others negative except those mentioned in HPI. * Medications: T akingWegovy 1 MG/0.5ML Solution Auto-injector 1mg Subcutaneous weekly Ondansetron 4 MG Tablet Disintegrating 1 tablet on the tongue and allow to dissolve prn nausea/vomiting Orally twice day predniSONE 10 MG Tablet 1 tablet Orally Once a day , Notes to Pharmacist: PRNProAir HFA , Notes to Pharmacist: PRNWegovy 1.7 MG/0.75ML Solution Auto-injector 1.7mg Subcutaneous weekly Taking Wegovy 1 MG/0.5ML Solution Auto-injector 1mg Subcutaneous weekly Taking Ondansetron 4 MG Tablet Disintegrating 1 tablet on the tongue and allow to dissolve prn nausea/vomiting Orally twice day Taking predniSONE 10 MG Tablet 1 tablet Orally Once a day , Notes to Pharmacist: PRNTaking ProAir HFA , Notes to Pharmacist: PRNTaking Wegovy 1.7 MG/0.75ML Solution Auto-injector 1.7mg Subcutaneous weekly Objective: * Examination: G eneral Examination: GENERAL [...] calories - E66.09 (Primary) 2 . B MD 34.0-34.9,adult - Z68.34 3 . D ietary counseling and surveillance - Z71.3 ?4. P rediabetes - R73.03 5 . E ncounter for examination of blood pressure without abnormal findings - Z01.30 #Weight Management 04/30/2025 Increase Wegovy to 1.7 mg cont Vit D high dose supplentation Total time spent today was 30 minutes of which greater than 50% was spent on coordinating and counseling Patient has been found to be obese with a BMI of (34). Patient has class (2) obesity. We are a board certified obesity and weight management practice Of note, some information is being carried forward from prior records for informational purposes only and is being cited so that efficiency, safety and quality of the patient's care is not compromised This note was prepared using voice recognition software and direct typing Please excuse inadvertent mill tender washing or typing errors, or uncorrected word substitutions Although every attempt has been made by the provider to proofread this document, occasional misspellings and typographical errors may still be present Due to the previous pandemic, and the use of personal protective equipment (PPE) This may decrease voice recognition accuracy Inadvertent mill tender washing errors may occur Plan: * Treatment: * Procedure Codes: 9 9199 NO SHOW OFFICE VISIT Billing Information: * Procedure Codes: 52624 NO SHOW OFFICE VISIT. * Electronic signature of NICO ONEIL on 11/25/2025 at 11:40 AM EST Sign off status: Pending * Provider: Stanford ONEIL NP Date: 0 04/30/2025 Generated for Tabby lau/Alexandra/Errol on: 0 11/25/2025 11:40 AM EST
--- OUTSIDE RECORDS SUMMARY | 2025-06-22 04:00 | XMS_ITS ---
Author Organization Payam Saravia III, MD Address [address] [place] [address] [place] [address] Care Team Providers Care Miner Assistant Name Role Phone Dr. Payam Saravia III Primary Care Provider [phone] Allergies Allergen (clinical drug ingredient) Drug/Non Drug Allergy documented on EMR Reaction Allergy Type Onset Date Status acetaminophen / oxycodone Percocet Unknown Drug Allergy Active REASON FOR VISIT Recent left frontalheadaches, lightheadedness, Asthma, Insomnia, Obesity, Diabetes Medications Medication SIG (Take, Route, Frequency, Duration) Notes Start Date End Date Status Triamterene-HCTZ 37.5-25 MG 1 tablet Orally one every other day 12/23/2023 Active Celecoxib 100 MG TAKE 1 CAPSULE BY MOUTH EVERY DAY WITH FOOD FOR 30 DAYS Active Budesonide-Formote rol Fumarate 160-4.5 MCG/ACT two puffs Inhalation twice a day 02/10/2024 Active Ibuprofen 800 MG TAKE 1 TABLET BY MOUTH THREE TIMES A DAY WITH FOOD OR MILK NEEDED FOR 30 DAYS Active ProAir HFA 108 (90 Base) MCG/ACT 1 puff as needed Inhalation every 4 hrs 03/23/2021 Active predniSONE 20 MG 2 tablets Orally Onc e a day J45.41 Moderate persistent asthmatic bronchitis with acute exacerbation Active Albuterol Sulfate HFA 108 (90 Base) MCG/ACT 1 puff as needed Inhalation every 4 hrs J45.41 Moderate persistent asthmatic bronchitis with acute exacerbation 08/20/2024 Active Loratadine 10 MG 1 tablet Orally Once a day 03/12/2024 Active Wegovy 0.5 MG/0.5ML INJECT 0.5 MG SUBCUTANEOUSLY WEEKLY Subcutaneous Active Clobetasol Propionate 0.05 % External Active Social History Tobacco Use: Social History [...] Problem Status W/U Status Risk Notes Problem 82231039 Sleep apnea, unspecified (G47.30) Active confirmed She is doing well with the CPAP machine and no adjustment was necessary. Problem [id number] Frequent headaches (R51.9) Active confirmed The meloxicam is helping the headaches seem to be improving. Observation for 7 more days was recommended. Vital Signs Temperature 98.2 degrees Fahrenheit 06/22/20 25 Blood pressure systolic 141 mm Hg 06/22/20 25 Blood pressure diastolic 86 mm Hg 025 Heart Rate 76 /min 06/22/2025 Height 72 in 06/22/2025 Weight 252 lbs 06/22/2025 BMI 34.17 kg/m2 06/22/2025 Encounters Encounter Location Date Provider Diagnosis Payam Saravia III, MD [address] [place] [address] [place] [address] 06/22/2025 Payam Saravia Obesity E66.9 ; Frequent headaches R51.9 ; Depressive disorder, not elsewhere classified F32.9 ; Sleep apnea, unspecified G47.30 ; Mild intermittent asthma without complication J45.20 ; Nontoxic multinodular goiter E04.2 and Type 2 diabetes mellitus without complication, without long-term current use of insulin E11.9 Assessments Encounter Date Diagnosis (ICD Code) Assessment Notes Treatment Notes Treatment Clinical Notes 06/22/2025 Obesity (ICD-10 - E66.9) She has lost 2 pounds since her last visit and 7 pounds since February 2025. We reviewed her diet and nutrition in her plan to lose weight. 06/22/2025 Frequent headaches (ICD-10 - R51.9) Given her meloxicam and discussed propranolol compensated blood work has been ordered. 06/22/2025 Depressive disorder, not elsewhere classified (ICD-10 - F32.9) She continues on psychotherapy and on the antidepressant. She is not suicidal. We reviewed weight loss strategies. She will be seen frequently. 06/22/2025 Sleep apnea, unspecified (ICD-10 - G47.30) She is doing well with the CPAP machine and no adjustment was necessary. 06/22/2025 Mild intermittent asthma without complication (ICD-10 - J45.20) Her lungs were clear today and she was breathing without difficulty. Use her medications as prescribed if she has return of thhe asthma. I have asked her to notify me if this occurs. 06/22/2025 Nontoxic multinodular goiter (ICD-10 - E04.2) Her licensed clinical psychologist has made no change in her therapy. She is feeling healthy well at this time. 06/22/2025 Type 2 diabetes mellitus without complication, without long-term current use of insulin (ICD-10 - E11.9) Plan Of Treatment Medication Medication Name Sig Start Date Stop Date Notes Triamterene-HCTZ 37.5-25 MG 1 tablet Orally one every other day 12/23/2023 Celecoxib 100 MG TAKE 1 CAPSULE BY MO [facility] EVERY DAY WITH FOOD FOR 30 DAYS Budesonide-Formotero l Fumarate 160-4.5 MCG/ACT two puffs Inhalation twice a day 02/10/2024 Ibuprofen 800 MG TAKE 1 TABLET BY [facility]AR[place] THREE TIMES A DAY WITH FOOD OR MILK NEEDED FOR 30 DAYS ProAir HFA 108 (90 Base) MCG/ACT 1 puff as needed Inhalation every 4 hrs 03/23/2021 predniSONE 20 MG 2 tablets Orally Onc e a day J45.41 Moderate persistent asthmatic bronchitis with acute exacerbation Albuterol Sulfate HFA 108 (90 Base) MCG/ACT 1 puff as needed Inhalation every 4 hrs 08/20/2024 J45.41 Moderate persistent asthmatic bronchitis with acute exacerbation Loratadine 10 MG 1 tablet Orally Once a day 03/12/2024 Wegovy 0.5 MG/0.5ML INJECT 0.5 MG SUBCUTANEOUSLY WEEKLY Subcutaneous Clobetasol Propionate 0.05 % External Pending Test Test Name Order Date PROFILE, FASTING (COMPREHENSIVE METABOLI C) 06/22/2025 TSH (THYROID STIMULATING HORMONE) 2024 CBC w DIFF 06/22/2025 SED RATE (ESR) 06/22/2025 Lipid Panel 06/22/2025 Free T4 (Free Thyroxine) 06/22/2025 Next Appt Details Follow Up: 1 Week, Reason: T [facility] Provider Name:Payam Saravia , 01/18/2026 02:00:00 PM, [address] [facility] [address], [place], [address], Provider Name:Payam Saravia , 09/18/2026 03:00:00 PM, [address] [facility] [address] [place], [address], Progress Notes * Donya HOSKINSDOB:1970 (55 yo F)Acc No.[id number]:06/22/2025 Progress Notes Patient: Donya ORTA Provider: Doug Saravia MD :1970 A ge:55 Y S ex:Female Date:06/22/2025 Address:[address] [place] [place] [address] Subjective: * Chief Complaints: * R ecent left frontalheadachesLightheadednessAsthmaInsomniaObesityDiabetes * HPI: C OVID-19 Screening: She is here for a same day visit because of the last week she has developed left-sided frontal headaches with lightheadedness and dizziness. Questioning would indicate this is a benign positional vertigo. Her neurological examination was unremarkable. Her temporal arteries were present but not enlarged. Conference blood work with a sedimentation rate was ordered. Questions H ave you had any new onset fever, chills, cough, congestion, sore throat, shortness of breath, muscle aches? N o * ROS: G eneral/Constitutional: pain L eft frontal headaches, otherwise only normal aches and pains. C hills d enies. F atigue a dmits. F ever d enies. ? E NT: Decreased hearing d enies. R [...] have been noted. G enitourinary: Frequent urination a t night. M usculoskeletal: Muscle aches d enies. P [...] stic Procedure: u pper endoscopy, Dr. Chacon, [facility] 04/2021No history * Family History: F [...] De La Cruz. She was born in [place], [place], has 6 well children and has been 19 years to [place]. She was born in [place]. The patient has grandchildren who are active in sports. She works and likes her job. * Medications: T akingAlbuterol Sulfate HFA 108 (90 Base) MCG/ACT Aerosol Solution 1 puff as needed Inhalation every 4 hrs , Notes to Pharmacist: J45.41 Moderate persistent asthmatic bronchitis with acute exacerbationIbuprofen 800 MG Tablet TAKE 1 TABLET BY MOUTH THREE TIMES A DAY WITH FOOD OR MILK NEEDED FOR 30 DAYS Loratadine 10 MG Tablet 1 tablet Orally Once a day Wegovy 0.5 MG/0.5ML Solution Auto-injector INJECT 0.5 MG SUBCUTANEOUSLY WEEKLY Subcutaneous Clobetasol Propionate 0.05 % Cream External Taking Albuterol Sulfate HFA 108 (90 Base) MCG/ACT Aerosol Solution 1 puff as needed Inhalation every 4 hrs , Notes to Pharmacist: J45.41 Moderate persistent asthmatic bronchitis with acute exacerbationTaking Ibuprofen 800 MG Tablet TAKE 1 TABLET BY MOUTH THREE TIMES A DAY WITH FOOD OR MILK NEEDED FOR 30 DAYS Taking Loratadine 10 MG Tablet 1 tablet Orally Once a day Taking Wegovy 0.5 MG/0.5ML Solution Auto-injector INJECT 0.5 MG SUBCUTANEOUSLY WEEKLY Subcutaneous Taking Clobetasol Propionate 0.05 % Cream External Not-Taking/PRNpredniSONE 20 MG Tablet 2 tablets Orally Once a day , Notes to Pharmacist: J45.41 Moderate persistent asthmatic bronchitis with acute exacerbationTriamterene-HCTZ 37.5-25 MG Tablet 1 tablet Orally one every other day Celecoxib 100 MG Capsule TAKE 1 CAPSULE BY MOUTH EVERY DAY WITH FOOD FOR 30 DAYS ProAir HFA 108 (90 Base) MCG/ACT Aerosol Solution 1 puff as needed Inhalation every 4 hrs Budesonide-Formoterol Fumarate 160-4.5 MCG/ACT Aerosol two puffs Inhalation twice a day Medication List reviewed and reconciled with the patientNot-Taking/PRN predniSONE 20 MG Tablet 2 tablets Orally Once a day , Notes to Pharmacist: J45.41 Moderate persistent asthmatic bronchitis with acute exacerbationNot-Taking/PRN Triamterene-HCTZ 37.5-25 MG Tablet 1 tablet Orally one every other day Not-Taking/PRN Celecoxib 100 MG Capsule TAKE 1 CAPSULE BY MOUTH EVERY DAY WITH FOOD FOR 30 DAYS Not-Taking/PRN ProAir HFA 108 (90 Base) MCG/ACT Aerosol Solution 1 puff as needed Inhalation every 4 hrs Not-Taking/PRN Budesonide- Formoterol Fumarate 160-4.5 MCG/ACT Aerosol two puffs Inhalation twice a day Medication List reviewed and reconciled with the patient * Allergies: P anisaocetsanti[Allergies Verified] Objective: * Vitals: H t: 72, Wt: 252, BMI:34.17, BP: 141/86, HR: 76, Temp: 98.2, Wt-k.31. * Examination: G eneral Examination: GENERAL APPEARANCE: p leasant, well nourished, well developed, in no acute distress, calm and relaxed: obese: woman. HEAD: a traumatic, normocephalic. EYES: e [...] LUNGS: c lear to auscultation . BREASTS: no masses palpable bilaterally. ABDOMEN: b owel sounds normal, no ascites, no organomegaly, no mass: centripital obesity. RECTAL EXAM: n ot examined. MUSCULOSKELETAL: e xtremities unremarkable, no clubbing, cyanosis or edema. PERIPHERAL PULSES: n ormal. NEUROLOGIC: a lert and oriented, cranial nerves 2-12 grossly intact, deep tendon reflexes 2+ symmetrical, motor strength normal upper and lower extremities, sensory exam intact. PSYCH: a lert, oriented. Assessment: * Assessment: 1. F requent headaches - R51.9 (Primary) N otes :Given her meloxicam and discussed propranolol compensated blood work has been ordered. 2 . O besity - E66.9 N otes :She has lost 2 pounds since her last visit and 7 pounds since February 2025. We reviewed her diet and nutrition in her plan to lose weight. 3 . D epressive disorder, not elsewhere classified - F32.9 N otes :She continues on psychotherapy and on the antidepressant. She is not suicidal. We reviewed weight loss strategies. She will be seen frequently. 4 . S leep apnea, unspecified - G47.30 N otes :She is doing well with the CPAP machine and no adjustment was necessary. 5 . M ild intermittent asthma without complication - J45.20 N otes :Her lungs were clear today and she was breathing without difficulty. Use her medications as prescribed if she has return of thhe asthma. I have asked her to notify me if this occurs. 6 . N ontoxic multinodular goiter - E04.2 N otes :Her licensed clinical psychologist has made no change in her therapy. She is feeling healthy well at this time. 7 . T ype 2 diabetes mellitus without complication, without long-term current use of insulin - E11.9 Plan: * Treatment: 2. O besity L AB: PROFILE, FASTING (COMPREHENSIVE METABOLIC) L AB: TSH (THYROID STIMULATING HORMONE) L AB: CBC w DIFF L AB: SED RATE (ESR) L AB: Lipid Panel L AB: Free T4 (Free Thyroxine) 3. O thers Continue predniSONE Tablet, 20 MG, 2 tablets, Orally, Once a day, Notes to Pharmacist: J45.41 Moderate persistent asthmatic bronchitis with acute exacerbation; C ontinue Albuterol Sulfate HFA Aerosol Solution, 108 (90 Base) MCG/ACT, 1 puff as needed, Inhalation, every 4 hrs, Notes to Pharmacist: J45.41 Moderate persistent asthmatic bronchitis with acute exacerbation; C ontinue Triamterene-HCTZ Tablet, 37.5-25 MG, 1 tablet, Orally, one every other day; C ontinue Celecoxib Capsule, 100 MG, TAKE 1 CAPSULE BY MOUTH EVERY DAY WITH FOOD FOR 30 DAYS; C ontinue Ibuprofen Tablet, 800 MG, TAKE 1 TABLET BY MOUTH THREE TIMES A DAY WITH FOOD OR MILK NEEDED FOR 30 DAYS; C ontinue ProAir HFA Aerosol Solution, 108 (90 Base) MCG/ACT, 1 puff as needed, Inhalation, every 4 hrs; C ontinue Budesonide-Formoterol Fumarate Aerosol, 160-4.5 MCG/ACT, two puffs, Inhalation, twice a day;?Continue Loratadine Tablet, 10 MG, 1 tablet, Orally, Once a day; C ontinue Wegovy Solution Auto-injector, 0.5 MG/0.5ML, INJECT 0.5 MG SUBCUTANEOUSLY WEEKLY, Subcutaneous. * Procedure Codes: * Preventive Medicine: DM Care Plan: P atient Lifestyle Goals P atient wants to be able to manage diabetes without too much effort. T reatment Goals H bA1C < 7.0, Blood Sugars less than < 115. B arriers n o barriers. S elf-Managment Goals W ork on weight loss, with a goal of losing 1 lb per week. * Follow Up: 1 Week (Reason: Telehealth) * Images: * Sign off status: Completed true * Provider: Doug Saravia MD Date: 0 06/22/2025 Generated for Tabby lau/Alexandra/Shawnaitting on: 0 11/25/2025 [...] developed, in no acute distress, calm and relaxed: obese: woman HEAD: atraumatic, normocep halic EYES: eomi, perrla, anicte smitha, conjugate EARS: normal NOSE: septum intact NECK/THYROID: no jugular venous di stention, no carotid bruit, thyroid normal HEART: no clicks, gallops, murmurs, or rubs, regular rhythm, S1, S2 normal, no s3, or vascular bruits LUNGS: clear to auscultatio n ABDOMEN: bowel sounds normal, no ascites, no organomegaly, no mass: centripital obesity NEUROLOGIC: alert and oriented, cranial nerves 2-12 grossly intact, deep tendon reflexes 2+ symmetrical, motor strength normal upper and lower extremities, sensory exam intact SKIN: no suspicious lesion s, anicteric PERIPHERAL PULSES: normal BREASTS: no masses palpable b ilaterally MUSCULOSKELETAL: extremities unremark able, no clubbing, cyanosis or edema LYMPH NODES: no enlarged lymph no abdelrahman,spleen normal RECTAL EXAM: not examined PSYCH: alert, oriented ORAL CAVITY: normal, unremarkable
--- OUTSIDE RECORDS SUMMARY | 2025-06-29 04:30 | XMS_ITS ---
Author Organization Payam Saravia III, MD Address [address] [place] [address] [address] [place] [address] Care Team Providers Care Psychiatric Nurse Name Role Phone Dr. Payam Saravia III Primary Care Provider Allergies Allergen (clinical drug ingredient) Drug/Non Drug Allergy documented on EMR Reaction Allergy Type Onset Date Status acetaminophen / oxycodone Percocet Unknown Drug Allergy Active REASON FOR VISIT Frequent headaches, Depression, Goiter, Asthma, Obesity, Insomnia, Hypothyroid, Diabetes Medications Medication SIG (Take, Route, Frequency, Duration) Notes Start Date End Date Status Albuterol Sulfate HFA 108 (90 Base) MCG/ACT 1 puff as needed Inhalation every 4 hrs J45.41 Moderate persistent asthmatic bronchitis with acute exacerbation 08/20/2024 Active Clobetasol Propionate 0.05 % External Active predniSONE 20 MG 2 tablets Orally Onc e a day J45.41 Moderate persistent asthmatic bronchitis with acute exacerbation Active Triamterene-HCTZ 37.5-25 MG 1 tablet Orally one every other day 12/23/2023 Active Celecoxib 100 MG TAKE 1 CAPSULE BY MOUTH EVERY DAY WITH FOOD FOR 30 DAYS Active Wegovy 0.5 MG/0.5ML INJECT 0.5 MG SUBCUTANEOUSLY WEEKLY Subcutaneous Active Ibuprofen 800 MG TAKE 1 TABLET BY MOUTH THREE TIMES A DAY WITH FOOD OR MILK NEEDED FOR 30 DAYS Active ProAir HFA 108 (90 Base) MCG/ACT 1 puff as needed Inhalation every 4 hrs 03/23/2021 Active Budesonide-Formote rol Fumarate 160-4.5 MCG/ACT two puffs Inhalation twice a day 02/10/2024 Active Loratadine 10 MG 1 tablet Orally Once a day 03/12/2024 Active Social History Tobacco Use: Social History Observation Description Date Details (start date - stop date) Never Smoker NA - NA Sex Assigned At : Social History Observation Description Sex Assigned At Female Tobacco Control (Standard) Question Answer Notes Tobacco use: Nonsmoker Additional Findings: Tobacco non-user Aggressive nonsmoker Encounters Encounter Location Date Provider Diagnosis Payam Saravia III, MD [address] [place] [address] [place] [address] 06/29/2025 Payam Saravia Frequent headaches R51.9 ; Obesity E66.9 ; Sleep apnea, unspecified G47.30 ; Mild intermittent asthma without complication J45.20 ; Nontoxic multinodular goiter E04.2 and Hypothyroidism, unspecified E03.9 Assessments Encounter Date Diagnosis (ICD Code) Assessment Notes Treatment Notes Treatment Clinical Notes 06/29/2025 Frequent headaches (ICD-10 - R51.9) The meloxicam is helping the headaches seem to be improving. Observation for 7 more days was recommended. 06/29/2025 Obesity (ICD-10 - E66.9) She has lost 2 pounds since her last visit and 7 pounds since February 2025. We reviewed her diet and nutrition in her plan to lose weight. 06/29/2025 Sleep apnea, unspecified (ICD-10 - G47.30) She is doing well with the CPAP machine and no adjustment was necessary. 06/29/2025 Mild intermittent asthma without complication (ICD-10 - J45.20) Her lungs were clear today and she was breathing without difficulty. Use her medications as prescribed if she has return of thhe asthma. I have asked her to notify me if this occurs. 06/29/2025 Nontoxic multinodular goiter (ICD-10 - E04.2) Her lead technical architect has made no change in her therapy. She is feeling healthy well at this time. 06/29/2025 Hypothyroidism, unspecified (ICD-10 - E03.9) She is clinically euthyroid. She has been compliant with her medication. No changes in her therapy was necessary. Comprehensive blood work will thyroid function test was ordered today. Plan Of Treatment Medication Medication Name Sig Start Date Stop Date Notes Albuterol Sulfate HFA 108 (90 Base) MCG/ACT 1 puff as needed Inhalation every 4 hrs 08/20/2024 J45.41 Moderate persistent asthmatic bronchitis with acute exacerbation Clobetasol Propionate 0.05 % External predniSONE 20 MG 2 tablets Orally Onc e a day J45.41 Moderate persistent asthmatic bronchitis with acute exacerbation Triamterene-HCTZ 37.5-25 MG 1 tablet Orally one every other day 12/23/2023 Celecoxib 100 MG TAKE 1 CAPSULE BY [facility] EVERY DAY WITH FOOD FOR 30 DAYS Wegovy 0.5 MG/0.5ML INJECT 0.5 MG SUBCUTANEOUSLY WEEKLY Subcutaneous Ibuprofen 800 MG TAKE 1 TABLET BY PEARL THREE TIMES A DAY WITH FOOD OR MILK NEEDED FOR 30 DAYS ProAir HFA 108 (90 Base) MCG/ACT 1 puff as needed Inhalation every 4 hrs 03/23/2021 Budesonide-Formotero l Fumarate 160-4.5 MCG/ACT two puffs Inhalation twice a day 02/10/2024 Loratadine 10 MG 1 tablet Orally Once a day 03/12/2024 Next Appt Details Follow Up: as scheduled, Zee son: TV on Friday Provider Name:Payam Saravia , 01/18/2026 02:00:00 PM, [address] [place] [address] [address], [place], [address], Provider Name:Payam Saravia , 09/18/2026 03:00:00 PM, [address] [place] [address] [address], [place], [address], Progress Notes * Donya HOSKINSDOB:1970 (55 yo F)Acc No.[id number]:06/29/2025 Patient: Flo MOOK Donya Provider: Doug Saravia MD :1970 A ge:55 Y S ex:Female Date:06/29/2025 Address:[address] [place], [place] [id number] Subjective: * Chief Complaints: * F requent headachesDepressionGoiterAsthmaObesityInsomniaHypothyroidDiabetes * HPI: v : This telehealth visit took place over 15 minutes with the patient at home and me in my office. She gave consent for billing. She reports that the cluster headaches have become less intense and less frequent. She had only 2 in the last 7 days. She is using a combination of Tylenol and iMeloxicam. We discussed the entity. No change in her regimen was made. A follow-up in 1 week was arranged. * : Telehealth L ocation of provider rendering services: { ...} [address] [facility] [address] [facility] [address] L ocation of patient: margarita watts listed [...] 1 5 * ROS: G eneral/Constitutional: pain R ecent frequent headaches now becoming less often.?Chills d enies. F atigue a dmits. F ever d enies. E [...] speaking d enies. D izziness d enies.?Headache t hat is new. L ow back pain d enies. P sychiatric: Depressed mood d enies. * Medical History: * Surgical History: h ip fracture repair [facility] 2005pantoectomy 03/2018No history * Hospitalization/Major Diagno stic Procedure: u pper endoscopy, Dr. Chacon, [facility] 04/2021No history * Family History: F ather: [...] De La Cruz. She was born in [place], [place], has 6 well children and has been 19 years to [place]. She was born in [place]. The patient has grandchildren who are active in sports. She works and likes her job. * Medications: T akingpredniSONE 20 MG Tablet 2 tablets Orally Once a day , Notes to Pharmacist: [email or web address] Moderate persistent asthmatic bronchitis with acute exacerbationAlbuterol [...] Subcutaneous Clobetasol Propionate 0.05 % Cream External Medication List reviewed and reconciled with the [...] Taking Clobetasol Propionate 0.05 % Cream External Medication List reviewed and reconciled with the patient * Allergies: P ercocetno[Allergies Verified] Objective: * Vitals: Assessment: * Assessment: 1. F requent headaches - R51.9 (Primary) N otes :The meloxicam is helping the headaches seem to be improving. Observation for 7 more days was recommended. 2 . O besity - E66.9 N otes :She has lost 2 pounds since her last visit and 7 pounds since February 2025. We reviewed her diet and nutrition in her plan to lose weight. 3 . S leep apnea, unspecified - G47.30 N otes :She is doing well with the CPAP machine and no adjustment was necessary. 4 . M ild intermittent asthma without complication - J45.20 N otes :Her lungs were clear today and she was breathing without difficulty. Use her medications as prescribed if she has return of thhe asthma. I have asked her to notify me if this occurs. 5 . N ontoxic multinodular goiter - E04.2 N otes :Her lead technical architect has made no change in her therapy. She is feeling healthy well at this time. 6 . H ypothyroidism, unspecified - E03.9 N otes :She is clinically euthyroid. She has been compliant with her medication. No changes in her therapy was necessary. Comprehensive blood work will thyroid function test was ordered today. Plan: * Treatment: 2. O thers Continue predniSONE Tablet, 20 MG, [...] MG SUBCUTANEOUSLY WEEKLY, Subcutaneous. * Procedure Codes: 9 8012 SYNCH AUDIO-ONLY EST SF 10 * Preventive Medicine: Counseling: C are goal follow-up plan: Counseling for abnormal BMI given Y es Above Normal BMI Follow-up D ietary management education, guidance, and counseling DM Care Plan: P atient Lifestyle Goals P atient wants to be able to manage diabetes without too much effort. T reatment Goals B lood Sugars less than < 115, HbA1C < 7.0. B arriers n o barriers. S elf-Managment Goals W ork on weight loss, with a goal of losing 1 lb per week. * Follow Up: a s scheduled (Reason: TV on Friday) * Images: * Sign off status: Completed true * Provider: Doug Saravia MD Date: 06/29/2025 Generated for Tabby lau/Alexandra/eTransmitting on: 0 11/25/2025 11:43 AM EST History and Physical Notes * HPI (History of Present Illness) Category Sub-Category Detail Notes Telehealth Location of [facility] ider rendering services:: {...} [address] [facility] [address] Location of patient:: address listed in demographics [...]
--- OUTSIDE RECORDS SUMMARY | 2025-09-07 09:20 | XMS_ITS ---
Author Organization Payam Saravia III, MD Address [address] [place] [address] Care Team Providers Care Shiftman Name Role Phone Dr. Payam Saravia III Primary Care Provider REASON FOR VISIT Dental Cleaning Medications Medication SIG (Take, Route, Fr equency, Duration) Notes Start Date End Date Status Amoxicillin 500 MG 4 tablets Orally onc e for 1 days 09/07/2025 09/08/2025 Active Social History Sex Assigned At : Social History Observation Description Sex Assigned At Female Encounters Encounter Location Date Provider Diagnosis Payam Saravia III, MD [address] [place] [address] [place] [address] 09/07/2025 Payam Saravia Plan Of Treatment Medication Medication Name Sig Start Date Stop Date Notes Amoxicillin 500 MG 4 tablets Orally once for 1 days 202409/08/2025 Next Appt Details Provider Name:Payam Saravia , 01/18/2026 02:00:00 PM, [address] [facility] [place], [address], Provider Name:Payam Saravia , 09/18/2026 03:00:00 PM, [address] [facility] [place], [address], Progress Notes * Donya HOSKINSDOB:1970 (55 yo F)Acc No.[id number]:09/07/2025 Patient: Donya ORTA :1970 A ge:55 Y S ex:Female Address:[address] [place], [place] [address] * Refills Start Amoxicillin Capsule, 500 MG, Orally, 4 Tablet, 4 tablets, once, 1 days, Refills=0 * true * Date: Generated for Tabby lau/Alexandra/Shawnaitting on: 0 11/25/2025 11:40 AM EST
--- OUTSIDE RECORDS SUMMARY | 2025-09-16 09:45 | XMS_ITS ---
Author Organization Payam Saravia III, MD Address [address] [place] [address] Care Team Providers Care Sap Gatherer Name Role Phone Dr. Payam Saravia III [...] Date Provider Diagnosis Payam Saravia III, MD [address] [place] [address] [place] [address] 09/16/2025 Payam Saravia Obesity E66.9 ; Iron [...] Nontoxic multinodular goiter (ICD-10 - E04.2) Her individual pension consultant has made no change in her therapy. [...] Provider Name:Payam Saravia , 01/18/2026 02:00:00 PM, [address] [place] [address] [address], [place], [address], Provider Name:Payam Saravia , 09/18/2026 03:00:00 PM, [address] [place] [address] [address], [place], [address], Progress Notes * Adrianne HOSKINSdominicDOB:1970 (55 yo F)Acc No.[id number]:09/16/2025 Progress Notes Patient: Donya ORTA Provider: Doug Saravia MD :1970 A ge:55 Y S ex:Female Date:09/16/2025 Address:[address] [place], [place] [id number] Subjective: * Chief Complaints: * A nnual [...] the fracture site. She was referred to [facility] orthopedist for this.She has lost 6 pounds [...] stic Procedure: u pper endoscopy, Dr. Chacon, [facility] 04/2021No history * Family History: [...] De La Cruz. She was born in [place], [place], has 6 well children and has been 19 years to [place]. She was born in [place]. The patient has grandchildren who are active [...] Cholesterol 60 >40 - mg/dL L ab:Comprehensive [place]. Panel Fast (Order Date - 06/22/2025) (Collection [...] . BREASTS: N ot examined, Done by CAT WAGON OPERATOR. ABDOMEN: b owel sounds normal, no ascites, [...] multinodular goiter - E04.2 N otes :Her individual pension consultant has made no change in her therapy. [...] Generated for Tabby lau/Alexandra/eTransmitting on: 0 11/25/2025 11:41 AM EST History [...] normal BREASTS: Not examined, Done b y CAT WAGON OPERATOR MUSCULOSKELETAL: extremities unremark able, no clubbing, cyanosis [...]
--- OUTSIDE RECORDS SUMMARY | 2025-10-05 05:45 | XMS_ITS ---
Author Organization [facility] [address] Address [address] [place] [address] Care Team Providers Care Senior Technologist Name Role Phone Chikis Swartz Unavailable [phone] THUAN ONEIL Unavailable [phone] Medications Medication SIG (Take, Route, Frequency, Duration) [...] Active Encounters Encounter Location Date Provider Diagnosis [facility] [address] [place] [phone] 10/05/2025 THUAN ONEIL Other obesity due to [...] software and direct typing Please excuse inadvertent photographic artist or typing errors, or uncorrected word substitutions Although every attempt has been made by the provider to proofread this document, occasional misspellings and typographical errors may still be present Due to the previous pandemic, and the use of personal protective equipment (PPE) This may decrease voice recognition accuracy Inadvertent photographic artist errors may occur 10/05/2025 BMI 34.0-34.9,adult (ICD-10 [...] software and direct typing Please excuse inadvertent photographic artist or typing errors, or uncorrected word substitutions Although every attempt has been made by the provider to proofread this document, occasional misspellings and typographical errors may still be present Due to the previous pandemic, and the use of personal protective equipment (PPE) This may decrease voice recognition accuracy Inadvertent photographic artist errors may occur 10/05/2025 Dietary counseling and [...] software and direct typing Please excuse inadvertent photographic artist or typing errors, or uncorrected word substitutions Although every attempt has been made by the provider to proofread this document, occasional misspellings and typographical errors may still be present Due to the previous pandemic, and the use of personal protective equipment (PPE) This may decrease voice recognition accuracy Inadvertent photographic artist errors may occur 10/05/2025 Prediabetes (ICD-10 - [...] software and direct typing Please excuse inadvertent photographic artist or typing errors, or uncorrected word substitutions Although every attempt has been made by the provider to proofread this document, occasional misspellings and typographical errors may still be present Due to the previous pandemic, and the use of personal protective equipment (PPE) This may decrease voice recognition accuracy Inadvertent photographic artist errors may occur 10/05/2025 Encounter for examination [...] software and direct typing Please excuse inadvertent photographic artist or typing errors, or uncorrected word substitutions Although every attempt has been made by the provider to proofread this document, occasional misspellings and typographical errors may still be present Due to the previous pandemic, and the use of personal protective equipment (PPE) This may decrease voice recognition accuracy Inadvertent photographic artist errors may occur Plan Of Treatment Medication Medication Name Sig Start Date Stop Date Notes Wegovy 1.7 MG/0.75ML Solution Auto-injector 1.7mg Subcutaneous weekly; Duration: 30 days 10/03/2025 Next Appt Details Provider Name:THUAN ONEIL, 11/26/2025 09:15:00 AM, [address], [place], [phone], History and Physical Notes * HPI (History [...] IBS modified diet significantly Gastric Sleeve at [facility] Dr. Franks 2014 Thyroid nodules evaluated, benign, Dr. Muro , Underwent FNA and ultrasound Exercise: Currently walks at work + x3 days/wk for 30-40 min; no weight lifting Non-smoker ETOH use: socially PCP Dr. 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 Tiny 2015 Thyroid nodules evaluated, benign, Dr. Muro , Underwent FNA and ultrasound Exercise: Currently walks at work + x3 days/wk for 30-40 min; no weight lifting Non-smoker ETOH use: socially PCP Dr. 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 B CA 34.0-34.9,adult - Z68.34 3 . D ietary [...] software and direct typing Please excuse inadvertent photographic artist or typing errors, or uncorrected word substitutions Although every attempt has been made by the provider to proofread this document, occasional misspellings and typographical errors may still be present Due to the previous pandemic, and the use of personal protective equipment (PPE) This may decrease voice recognition accuracy Inadvertent photographic artist errors may occur Plan: * Treatment: * Electronic signature of NICO ONEIL on 11/25/2025 at 11:43 AM EST Sign off status: Pending * Provider: Stanford ONEIL NP Date: 12/05/2024 Generated for Tabby lau/Alexandra/Tuckersmitting on: 0 11/25/2025 11:43 AM EST
--- NOTE | ~2025-11-23 | XR_ITS ---
EXAMINATION: XR HIP, RIGHT CLINICAL INFORMATION: M25.552 - Pain in right hip COMPARISON: None available. TECHNIQUE: AP pelvis, and 2 views of the right hip. FINDINGS: No acute fracture, dislocation, or suspicious bone lesion. Plain screw fixation of the right acetabulum noted from posterior approach, with hardware appearing intact and well seated. No loosening or complication evident. Moderate to severe likely posttraumatic degenerative arthritis of the right hip joint. There are subcapital and superolateral acetabular osteophytes. The left hip joint appears normal. Eggshell type calcifications in the central pelvis are consistent with degenerated fibroid tumors of the uterus. Soft tissues otherwise appear normal. XR/XR hip RT min 2V IMPRESSION: 1. 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 2. Intact right acetabular fixation plate and screws. 3. 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 Electronically signed by: Maxime Brownlee MD 11/23/2025 11:54 AM KEVEN
--- OUTSIDE RECORDS SUMMARY | 2025-11-25 11:41 | XMS_ITS | Patient Health Record ---
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 Payam Saravia III [...] ff Reviewed date:09/05/2025 09:34:03 AM Interpretation: Performing Lab:[facility], [address] [place] [phone] Notes/Report: White Blood Count 4.0 4.8-10.8 X10*3/uL [...] te Reviewed date:09/05/2025 09:34:03 AM Interpretation: Performing Lab:[facility], [address] [place] [phone] Notes/Report: Erythrocyte Sedimentation Rate 10 0-20 MM/HR Patients with polycythemia and many hemoglobin abnormalities may have depressed sed rates whereas patients with anemia may have elevated sed rates. Comprehensive [place]. Panel Fa st Reviewed date:09/05/2025 09:34:03 AM Interpretation: Performing Lab:[facility], [address] [place] [phone] Notes/Report: Sodium 139 135-145 mmol/L Potassium 4.2 [...] Panel Reviewed date:09/05/2025 09:34:03 AM Interpretation: Performing Lab:[address] [phone] Notes/Report: Triglycerides 63 <150 mg/dL Desirable Triglyceride: [...] Thyroxine) Reviewed date:09/05/2025 09:34:03 AM Interpretation: Performing Lab:[address] [phone] Notes/Report: Free T4 (Free Thyroxine) 0.94 0.71-1.85 ng/dL Thyroid Stimulating Hormone Reviewed date:09/05/2025 09:34:03 AM Interpretation: Performing Lab:[address] [phone] Notes/Report: Thyroid Stimulating Hormone 0.50 0.32-4.0 uIU/ [...] Problem Status W/U Status Risk Notes Problem 416382892 Obesity (E66.9) Active confirmed He has lost 6 pounds through diet and exercise. Her body mass index is 33.36. She will continue to lose weight at a rate of 1 pound per week. Problem Hypothyroidism (67020795) Hypothyroidis m, unspecified (E03.9) Active confirmed She is clinically euthyroid. She has been compliant with her medication. No changes in her therapy was necessary. Comprehensive blood work will thyroid function test was ordered today. Problem 75557558 Nontoxic multinodular goiter (E04.2) Active confirmed Her records manager has made no change in her therapy. She is feeling healthy well at this time. Problem 56957676 Insomnia due to medical condition (G47.01) Active confirmed She is sleeping well lately and has a little trouble with this problem. Problem 22844684 Sleep apnea, unspecified (G47.30) Active confirmed She is doing well with the CPAP machine and no adjustment was necessary. Problem 881682860 Mild intermittent asthma without complication (J45.20) Active confirmed Her lungs were clear today and she was breathing without difficulty. Use her medications as prescribed if she has return of thhe asthma. I have asked her to notify me if this occurs. Problem 007268439 Iron deficiency anemia due to chronic blood loss (D50.0) Active confirmed He was continue d on her iron supplementation. Problem 25490573 Depressive disorder, not elsewhere classified (F32.9) Active confirmed She continues o n psychotherapy and on the antidepressant. She is not suicidal. We reviewed weight loss strategies. She will be seen frequently. Problem [id number] Arthritis of both knees (M17.0) Active confirmed Her knee pain i s mild she is able to work. Is mostly related to weightbearing. Problem 434940394 Acute pneumonia (J18.9) Active confirmed She will finish the antibiotic tomorrow she is afebrile and the cough is diminished and nonproductive. I have ordered a chest x-ray and comprehensive blood work. She was breathing comfortably on room air. Problem 217785060 Frequent headaches (R51.9) Active confirmed The meloxicam [...] Date Provider Diagnosis Payam Saravia III, MD [address] [place] [address] [place] [phone] 01/26/2025 Payam Saravia Obesity E66.9 ; Mild intermittent asthma without complication J45.20 ; Nontoxic multinodular goiter E04.2 ; Depressive disorder, not elsewhere classified F32.9 ; Insomnia due to medical condition G47.01 and Trochanteric bursitis of left hip M70.62 Payam Saravia III, MD [address] [place] [address] [place] [address] 02/16/2025 Payam Saravia Obesity E66.9 ; Insomnia due to medical condition G47.01 ; Depressive disorder, not elsewhere classified F32.9 and Hypothyroidism, unspecified E03.9 Payam Saravia III, MD [address] [place] [address] [place] [address] 02/28/2025 Payam Saravia Acute pharyngitis, unspecified etiology J02.9 ; Depressive disorder, not elsewhere classified F32.9 ; Nontoxic multinodular goiter E04.2 ; Mild intermittent asthma without complication J45.20 ; Insomnia due to medical condition G47.01 ; Obesity E66.9 ; Iron deficiency anemia due to chronic blood loss D50.0 ; Arthritis of both knees M17.0 and Hypothyroidism, unspecified E03.9 Payam Saravia III, MD [address] [place] [address] [place] [address] 03/23/2025 Payam Saravia Acute gastritis without hemorrhage, unspecified gastritis type K29.00 ; Nontoxic multinodular goiter E04.2 ; Depressive disorder, not elsewhere classified F32.9 ; Insomnia due to medical condition G47.01 and Obesity E66.9 Payam Saravia III, MD [address] [place] [address] [place] [address] 03/30/2025 Payam Saravia Obesity E66.9 ; Nontoxic multinodular goiter E04.2 ; Depressive disorder, not elsewhere classified F32.9 and Mild intermittent asthma without complication J45.20 Payam Saravia III, MD [address] [place] [address] [place] [address] 06/22/2025 Payam Saravai Obesity E66.9 ; Frequent headaches R51.9 ; Depressive disorder, not elsewhere classified F32.9 ; Sleep apnea, unspecified G47.30 ; Mild intermittent asthma without complication J45.20 ; Nontoxic multinodular goiter E04.2 and Type 2 diabetes mellitus without complication, without long-term current use of insulin E11.9 Payam Saravia III, MD [address] [place] [address] [place] [address] 06/29/2025 Payam Saravia Frequent headaches R51.9 ; Obesity E66.9 ; Sleep apnea, unspecified G47.30 ; Mild intermittent asthma without complication J45.20 ; Nontoxic multinodular goiter E04.2 and Hypothyroidism, unspecified E03.9 Payam Saravia III, MD [address] [place] [address] [place] [address] 09/16/2025 Payam Saravia Obesity E66.9 ; Iron deficiency anemia due to chronic blood loss D50.0 ; Depressive disorder, not elsewhere classified F32.9 ; Nontoxic multinodular goiter E04.2 ; Mild intermittent asthma without complication J45.20 ; Insomnia due to medical condition G47.01 ; Hypothyroidism, unspecified E03.9 and Sleep apnea, unspecified G47.30 Payam Saravia III, MD [address] [place] [address] [place] [address] 01/28/2025 Payam Saravia III, MD [address] [place] [address] [place] [address] 02/01/2025 Payam Saravia III, MD [address] [place] [address] [place] [address] 02/08/2025 Payam Saravia III, MD [address] [place] [address] [place] [address] 09/07/2025 Payam Saravia Assessments Encounter Date Diagnosis [...] Nontoxic multinodular goiter (ICD-10 - E04.2) Her records manager has made no change in her [...] Nontoxic multinodular goiter (ICD-10 - E04.2) Her records manager has made no change in her [...] Nontoxic multinodular goiter (ICD-10 - E04.2) Her records manager has made no change in her [...] Nontoxic multinodular goiter (ICD-10 - E04.2) Her records manager has made no change in her [...] Nontoxic multinodular goiter (ICD-10 - E04.2) Her records manager has made no change in her [...] Nontoxic multinodular goiter (ICD-10 - E04.2) Her records manager has made no change in her [...] Nontoxic multinodular goiter (ICD-10 - E04.2) Her records manager has made no change in her [...] Provider Name:Payam Saravia , 01/18/2026 02:00:00 PM, [address] [place] [address] [address] [place], [place], [phone], Provider Name:Payam Saravia , 09/18/2026 03:00:00 PM, [address] [place] [address] [place], [address], Insurance Providers Payer Name Payer Address Payer Phone Subscriber Number Group Number Insured Name Patient Relationship to Insured Coverage Start Date Coverage End Date [facility] [address] [place] [address] [id number] Donya Hoskins Self - patient is the insured [facility] [id number] [place], [place] [id number] Donya Hoskins Self - patient is the insured Medical (General) History Medical History History ICD Code multinodular goiter, Dr. Catty depression asthma left breast cyst hemorrhoids DUB/ov. cyst / TL/ [id number] miscarriages 4 laparascopic cholecystectomy plate in right hip/ fractured femur last mammogram 01/26/2013 @ [facility] Oral lesion Surgical History Surgery Date(Month/Year) No history pantoectomy 03/[address] [facility] 2004 Hospitalization History Reason Date(Month/Year) No history upper endoscopy, Dr. Chacon, [facility] 04/2021
--- OUTSIDE RECORDS SUMMARY | 2025-11-25 11:44 | XMS_ITS | Patient Health Record ---
Author Organization [facility] Address [address] [place] [address] Care Team Providers Care Prep Manager Name Role Phone Chikis Swartz Unavailable [phone] RAMYATHUAN ROMO Unavailable [phone] Allergies Allergen (clinical drug ingredient) Drug/Non Drug [...] Status Risk Notes Problem Morbid obesity (disorder) (863230982) Morbid (severe) obesity due to excess calories (E66.01) Active confirmed Problem Obesity due to excess calories (665294125) Other obesity due to excess calories (E66.09) Active confirmed Problem Adult health examination (886613614) Encounter for general adult medical examination without abnormal findings (Z00.00) Active confirmed Problem Vitamin D deficiency (19692737) Vitamin D deficiency (E55.9) Active confirmed Problem Body mass index 40+ - morbidly obese (654751767) BMI 40.0-44.9, adult (Z68.41) Active confirmed Problem Body mass index 35.00 to 39.99 (402354204692269) Body mass index [BMI] 36.0-36.9, adult (Z68.36) Active confirmed Problem Obese class II (193157850740021) BMI 35.0-35.9,adult (Z68.35) Active confirmed Problem Diabetes mellitus screening (106806587) Screening for diabetes mellitus (Z13.1) Active confirmed Problem Body mass index 30.00 to 34.99 (873872936727456) BMI 34.0-34.9,adult (Z68.34) Active confirmed Problem Thyroid disorder screening (971767264) Screening for thyroid disorder (Z13.29) Active confirmed Problem Hyperlipidemia screening (541589571) Screening for lipid disorders (Z13.220) Active confirmed Vital Signs Heart Rate 76 /min 10/05/2025 Oximetry 93 % 10/05/2025 Blood pressure diastolic 80 mm Hg 10/05/2025 Height 71 in 10/05/2025 Blood pressure systolic 120 mm Hg 10/05/2025 Weight 244.3 lbs 10/05/2025 BMI 34.07 kg/m2 10/05/2025 Encounters Encounter Location Date Provider Diagnosis [facility] [address] [place] [address] 04/30/2025 THUAN BORHOT Other obesity due to excess calories E66.09 ; BMI 34.0-34.9,adult Z68.34 ; Dietary counseling and surveillance Z71.3 ; Prediabetes R73.03 and Encounter for examination of blood pressure without abnormal findings Z01.[address] [facility] [address] [place] [address] 12/04/2024 THUAN BORHOT Other obesity due to excess calories E66.09 ; BMI 35.0-35.9,adult Z68.35 ; Dietary counseling and surveillance Z71.3 and Prediabetes R73.[address] [facility] [address] [place] [address] 01/29/2025 THUAN BORHOT Other obesity due to excess calories E66.09 ; BMI 35.0-35.9,adult Z68.35 ; Dietary counseling and surveillance Z71.3 and Prediabetes R73.[address] [facility] [address] [place], [place] 03/12/2025 THUAN BORHOT Other obesity due to excess calories E66.09 ; BMI 34.0-34.9,adult Z68.34 ; Dietary counseling and surveillance Z71.3 and Prediabetes R73.03 [facility] [address] [address] 10/05/2025 THUAN BORHOT Other obesity due to excess calories E66.09 ; BMI 34.0-34.9,adult Z68.34 ; Dietary counseling and surveillance Z71.3 ; Prediabetes R73.03 and Encounter for examination of blood pressure without abnormal findings Z01.30 [facility] [address] [address] 11/25/2024 THUAN BORHOT [facility] [address] [address] 01/14/2025 Chikis Clarkcek [facility] [address] [address] 03/12/2025 THUAN BORHOT [facility] [address] [place] [address] 05/02/2025 THUAN BORHOT [facility] [address] [address] 10/07/2025 Chikis Svrcek Morbid (severe) obes ity due to excess calories E66.[address] [facility] [address] [place] [address] 11/10/2025 Chikis Svrcek Other obesity due to excess calories E66.09 [facility] [address] [facility] [address] [place] [address] 07/05/2025 THUAN ONEIL Assessments Encounter Date Diagnosis (ICD Code) Assessment Notes Treatment Notes Treatment Clinical Notes Section Notes 12/04/2024 Other obesity due to excess calories [...] minimum of 6 months The most recent [place] [employer] clinical endocrinologists and [place] [employer] guidelines recommend patients who [...] software and direct typing Please excuse inadvertent retort engineer or typing errors, or uncorrected word substitutions Although every attempt has been made by the provider to proofread this document, occasional misspellings and typographical errors may still be present Due to the previous pandemic, and the use of personal protective equipment (PPE) This may decrease voice recognition accuracy Inadvertent retort engineer errors may occur 12/04/2024 BMI 35.0-35.9,adult (ICD-10 - Z68.35) #Weight [...] minimum of 6 months The most recent [place] [employer] endocrinologists and [place] [employer] guidelines recommend patients who [...] software and direct typing Please excuse inadvertent retort engineer or typing errors, or uncorrected word substitutions Although every attempt has been made by the provider to proofread this document, occasional misspellings and typographical errors may still be present Due to the previous pandemic, and the use of personal protective equipment (PPE) This may decrease voice recognition accuracy Inadvertent retort engineer errors may occur 01/29/2025 Other obesity due [...] software and direct typing Please excuse inadvertent retort engineer or typing errors, or uncorrected word substitutions Although every attempt has been made by the provider to proofread this document, occasional misspellings and typographical errors may still be present Due to the previous pandemic, and the use of personal protective equipment (PPE) This may decrease voice recognition accuracy Inadvertent retort engineer errors may occur 03/12/2025 Other obesity due [...] software and direct typing Please excuse inadvertent retort engineer or typing errors, or uncorrected word substitutions Although every attempt has been made by the provider to proofread this document, occasional misspellings and typographical errors may still be present Due to the previous pandemic, and the use of personal protective equipment (PPE) This may decrease voice recognition accuracy Inadvertent retort engineer errors may occur 03/12/2025 BMI 34.0-34.9,adult (ICD-10 [...] software and direct typing Please excuse inadvertent retort engineer or typing errors, or uncorrected word substitutions Although every attempt has been made by the provider to proofread this document, occasional misspellings and typographical errors may still be present Due to the previous pandemic, and the use of personal protective equipment (PPE) This may decrease voice recognition accuracy Inadvertent retort engineer errors may occur 04/30/2025 Other obesity due [...] software and direct typing Please excuse inadvertent retort engineer or typing errors, or uncorrected word substitutions Although every attempt has been made by the provider to proofread this document, occasional misspellings and typographical errors may still be present Due to the previous pandemic, and the use of personal protective equipment (PPE) This may decrease voice recognition accuracy Inadvertent retort engineer errors may occur 04/30/2025 BMI 34.0-34.9,adult (ICD-10 [...] software and direct typing Please excuse inadvertent retort engineer or typing errors, or uncorrected word substitutions Although every attempt has been made by the provider to proofread this document, occasional misspellings and typographical errors may still be present Due to the previous pandemic, and the use of personal protective equipment (PPE) This may decrease voice recognition accuracy Inadvertent retort engineer errors may occur 10/05/2025 Other obesity due to excess calories (ICD-10 - E66.09) #Weight Management 04/30/2025 Will increase to 2.4 mg of Wegovy Improving body composition Discussed options moving forward after November 24 including [facility], [place] [facility] as well as compounding [...] software and direct typing Please excuse inadvertent retort engineer or typing errors, or uncorrected word substitutions Although every attempt has been made by the provider to proofread this document, occasional misspellings and typographical errors may still be present Due to the previous pandemic, and the use of personal protective equipment (PPE) This may decrease voice recognition accuracy Inadvertent retort engineer errors may occur 10/05/2025 BMI 34.0-34.9,adult (ICD-10 - Z68.34) #Weight Management 04/30/2025 Will increase to 2.4 mg of Wegovy Improving body composition Discussed options moving forward after November 24 including [facility], [place] [facility] as well as compounding [...] software and direct typing Please excuse inadvertent retort engineer or typing errors, or uncorrected word substitutions Although every attempt has been made by the provider to proofread this document, occasional misspellings and typographical errors may still be present Due to the previous pandemic, and the use of personal protective equipment (PPE) This may decrease voice recognition accuracy Inadvertent retort engineer errors may occur 11/10/2025 Other obesity due [...] software and direct typing Please excuse inadvertent retort engineer or typing errors, or uncorrected word substitutions Although every attempt has been made by the provider to proofread this document, occasional misspellings and typographical errors may still be present Due to the previous pandemic, and the use of personal protective equipment (PPE) This may decrease voice recognition accuracy Inadvertent retort engineer errors may occur 10/07/2025 Morbid (severe) obesity due to excess calories (ICD-10 - E66.01) Electronic Prior Authorization was requested for Wegovy 2.4 MG/0.75ML Solution Auto-injector. Provider can order medication once approval received. 10/05/2025 Dietary counseling and surveillance (ICD-10 - Z71.3) #Weight Management 04/30/2025 Will increase to 2.4 mg of Wegovy Improving body composition Discussed options moving forward after November 24 including [facility], [place] [facility] as well as compounding [...] software and direct typing Please excuse inadvertent retort engineer or typing errors, or uncorrected word substitutions Although every attempt has been made by the provider to proofread this document, occasional misspellings and typographical errors may still be present Due to the previous pandemic, and the use of personal protective equipment (PPE) This may decrease voice recognition accuracy Inadvertent retort engineer errors may occur 04/30/2025 Dietary counseling and [...] software and direct typing Please excuse inadvertent retort engineer or typing errors, or uncorrected word substitutions Although every attempt has been made by the provider to proofread this document, occasional misspellings and typographical errors may still be present Due to the previous pandemic, and the use of personal protective equipment (PPE) This may decrease voice recognition accuracy Inadvertent retort engineer errors may occur 03/12/2025 Dietary counseling and [...] software and direct typing Please excuse inadvertent retort engineer or typing errors, or uncorrected word substitutions Although every attempt has been made by the provider to proofread this document, occasional misspellings and typographical errors may still be present Due to the previous pandemic, and the use of personal protective equipment (PPE) This may decrease voice recognition accuracy Inadvertent retort engineer errors may occur 12/04/2024 Dietary counseling and [...] minimum of 6 months The most recent [place] [employer] of clinical endocrinologists and [place] [employer]in[employer] guidelines recommend patients who [...] software and direct typing Please excuse inadvertent retort engineer or typing errors, or uncorrected word substitutions Although every attempt has been made by the provider to proofread this document, occasional misspellings and typographical errors may still be present Due to the previous pandemic, and the use of personal protective equipment (PPE) This may decrease voice recognition accuracy Inadvertent retort engineer errors may occur 12/04/2024 Prediabetes (ICD-10 - [...] minimum of 6 months The most recent [place] [employer] of clinical endocrinologists and [place] [employer] guidelines recommend patients who [...] software and direct typing Please excuse inadvertent retort engineer or typing errors, or uncorrected word substitutions Although every attempt has been made by the provider to proofread this document, occasional misspellings and typographical errors may still be present Due to the previous pandemic, and the use of personal protective equipment (PPE) This may decrease voice recognition accuracy Inadvertent retort engineer errors may occur 01/29/2025 Dietary counseling and [...] software and direct typing Please excuse inadvertent retort engineer or typing errors, or uncorrected word substitutions Although every attempt has been made by the provider to proofread this document, occasional misspellings and typographical errors may still be present Due to the previous pandemic, and the use of personal protective equipment (PPE) This may decrease voice recognition accuracy Inadvertent retort engineer errors may occur 03/12/2025 Prediabetes (ICD-10 - [...] software and direct typing Please excuse inadvertent retort engineer or typing errors, or uncorrected word substitutions Although every attempt has been made by the provider to proofread this document, occasional misspellings and typographical errors may still be present Due to the previous pandemic, and the use of personal protective equipment (PPE) This may decrease voice recognition accuracy Inadvertent retort engineer errors may occur 04/30/2025 Prediabetes (ICD-10 - [...] software and direct typing Please excuse inadvertent retort engineer or typing errors, or uncorrected word substitutions Although every attempt has been made by the provider to proofread this document, occasional misspellings and typographical errors may still be present Due to the previous pandemic, and the use of personal protective equipment (PPE) This may decrease voice recognition accuracy Inadvertent retort engineer errors may occur 10/05/2025 Prediabetes (ICD-10 - R73.03) #Weight Management 04/30/2025 Will increase to 2.4 mg of Wegovy Improving body composition Discussed options moving forward after November 24 including [facility], [place] [facility] as well as compounding [...] software and direct typing Please excuse inadvertent retort engineer or typing errors, or uncorrected word substitutions Although every attempt has been made by the provider to proofread this document, occasional misspellings and typographical errors may still be present Due to the previous pandemic, and the use of personal protective equipment (PPE) This may decrease voice recognition accuracy Inadvertent retort engineer errors may occur 10/05/2025 Encounter for examination [...] software and direct typing Please excuse inadvertent retort engineer or typing errors, or uncorrected word substitutions Although every attempt has been made by the provider to proofread this document, occasional misspellings and typographical errors may still be present Due to the previous pandemic, and the use of personal protective equipment (PPE) This may decrease voice recognition accuracy Inadvertent retort engineer errors may occur 04/30/2025 Encounter for examination [...] software and direct typing Please excuse inadvertent retort engineer or typing errors, or uncorrected word substitutions Although every attempt has been made by the provider to proofread this document, occasional misspellings and typographical errors may still be present Due to the previous pandemic, and the use of personal protective equipment (PPE) This may decrease voice recognition accuracy Inadvertent retort engineer errors may occur 01/29/2025 Prediabetes (ICD-10 - [...] software and direct typing Please excuse inadvertent retort engineer or typing errors, or uncorrected word substitutions Although every attempt has been made by the provider to proofread this document, occasional misspellings and typographical errors may still be present Due to the previous pandemic, and the use of personal protective equipment (PPE) This may decrease voice recognition accuracy Inadvertent retort engineer errors may occur Plan Of Treatment Pending Test Test Name Order Date LIPID PANEL, STANDARD 07/20/2024 COMPREHENSIVE METABOLIC PANEL 07/20/2024 CBC (INCLUDES DIFF/PLT) 07/20/2024 HEMOGLOBIN A1c 07/20/2024 TSH 07/20/2024 VITAMIN D,25-OH,TOTAL,IA 07/20/2024 Next Appt Details Provider Name:THUAN ONEIL, 11/26/2025 09:15:00 AM, [address], [place], [address], Insurance Providers Payer Name Payer Address Payer Phone Subscriber Number Group Number Insured Name Patient Relationship to Insured Coverage Start Date Coverage End Date [facility] [address] [place] [address] [id number] Donya Hoskins Self - patient is the insured [employer] [address] [place] [address] [phone] [id number] Donya Hoskins Self - patient is the [...]
--- OUTSIDE RECORDS SUMMARY | 2025-11-25 11:44 | XMS_ITS | Clinical Summary ---
Author Organization [facility] Address [address] [place] [phone] Phone Care Team Providers Care Associate Director Of Nursing Name Role Phone Payam Saravia MD Primary Care Provider [phone] Allergies Active Allergy Reactions Criticality Noted Date [...] topic Medical Devices Not on file Insurance [facility] P[facility] CIGNA PPO CIG[employer] PPO [employer] PPO [employer] PPO [employer] PPO Care Teams Associate Director Of Nursing Relationship Specialty Start Date End Date Payam Saravia MD [address] [place] [address] [place] [address] PCP - General Medical Oncology 11/07/21 Additional Source Comments The information contained in this document represents components of the legal health record. It is not the complete legal health record.[facility]
--- OUTSIDE RECORDS SUMMARY | 2025-11-25 11:44 | XMS_ITS | Clinical Summary ---
Author Organization [facility] ity Address [address] [place] [address] Care Team Providers Care Supervisor Plasma Name Role Phone Unavailable Primary Care Provider [...]
== END 2025-11-23 10:54 | disposition home or self-care (01) ==
LOC: HO.HOSX 10:53
PROVIDERS: Visit Provider Physician Assistant
DX: M16.51 Unilateral post-traumatic osteoarthritis, right hip (principal)
CPT/HCPCS: 73502